=== PATIENT | female | born 1955 | race Caucasian/White ===

== ENCOUNTER → 2019-11-21 12:40 | Outpatient (CLI) | payer MEDICARE, SELFPAY ==
--- NOTE | ~2019-11-21 | MM_ITS ---
EXAMINATION: MM screening betty BI w wilber HISTORY: Screening mammogram TECHNIQUE: Craniocaudal and mediolateral oblique 3-D tomosynthesis images were obtained and synthetic 2-D images were generated. CAD analysis was submitted and interpreted. COMPARISON: 09/18/2018, 08/22/2017, 07/07/2016 bilateral digital screening mammogram examinations BREAST PARENCHYMAL COMPOSITION: There are scattered areas of fibroglandular density. FINDINGS: There is no evidence of suspicious mass, calcification, or architectural distortion to sugg est malignancy in either breast. There has been no suspicious interval change. IMPRESSION: 1. No mammographic evidence of malignancy. 2. Recommend routine screening mammography in one year. 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
--- NOTE | ~2019-11-21 | DEXA_ITS ---
Bone Density Report Name: Anny Valladares Age: 64 Sex: Female Ethnicity: White Date of : 1955 Indication: osteopenia; height loss; inflammatory bowel disease; Referring Provider: ELENA ALEJANDRA Study: Bone densitometry was performed. Exam Date: November 21, 2019 Accession number: [id number] Bone Density: Region BMD T-score Z-score Classification AP Spine (L1-L4) 1.007 -0.4 1.4 Normal Femoral Neck (Left) 0.689 -1.4 0.1 Osteopenia Total Hip (Left) 0.707 -1.9 -0.7 Osteopenia Femoral Neck (Right) 0.672 -1.6 -0.1 Osteopenia Total Hip (Right) 0.694 -2.0 -0.8 Osteopenia Total Hip Mean 0.701 -2.0 -0.8 Osteopenia World Health Organization criteria for BMD impression classify patients as: Normal (T-score at or above -1.0), Osteopenia (T-score between -1.0 and -2.5), or Osteoporosis (T-score at or below -2.5). 10-year Fracture Risk(1): Major Osteoporotic Fracture 9.4% Hip Fracture 1.1% Reported Risk Factors: [place] (), Neck BMD=0.672, BMI=26.0 (1) FRAX(R) Version 3.08. Fracture probability calculated for an untreated patient. Fracture probability may be lower if the patient has received treatment. Previous Exams: Region Exam Age BMD T-score BMD Change BMD Change Date g/cm2 vs Baseline vs Previous AP Spine(L1-L4) 11/21/2019 64 1.007 -0.4 -0.004 0.037* 08/22/2017 62 0.970 -0.7 -0.041* 0.004 06/10/2015 60 0.966 -0.7 -0.045* -0.008 04/07/2013 57 0.974 -0.7 -0.037* 0.012 04/05/2011 55 0.961 -0.8 -0.050* -0.050* 10/26/2008 53 1.011 -0.3 Total Hip(Left) 11/21/2019 64 0.707 -1.9 -0.158* -0.021 08/22/2017 62 0.728 -1.8 -0.137* 0.004 06/10/2015 60 0.723 -1.8 -0.142* -0.011 04/07/2013 57 0.735 -1.7 -0.130* -0.040* 04/05/2011 55 0.775 -1.4 -0.090* -0.090* 10/26/2008 53 0.865 -0.6 Total Hip(Right) 11/21/2019 64 0.694 -2.0 -0.110* -0.005 08/22/2017 62 0.699 -2.0 -0.104* -0.004 06/10/2015 60 0.703 -2.0 -0.101* -0.025 04/07/2013 57 0.728 -1.8 -0.075* -0.006 04/05/2011 55 0.735 -1.7 -0.069* -0.069* 10/26/2008 53 0.803 -1.1 *Denotes significance at 95% confidence level, LSC for AP Spine = 0.022 g/cm2, LSC for Total Hip = 0.027 g/cm2 Clinical Information Provided by Patient:
== END ==
PROVIDERS: PCP Internal Medicine; Visit Provider Obstetrics & Gynecology Gynecology
DX: Z12.31 Encounter for screening mammogram for malignant neoplasm of breast (principal); Z78.0 Asymptomatic menopausal state; M85.852 Other specified disorders of bone density and structure, left thigh; M85.851 Other specified disorders of bone density and structure, right thigh
CPT/HCPCS: 77063; 77067; 77080

== ENCOUNTER 2020-08-19 13:15 | Outpatient (CLI) | payer MEDICARE, OTHER, SELFPAY ==
--- NOTE | ~2020-08-19 | XR_ITS ---
XR chest 2V DATE: 08/19/2020 13:40 INDICATION: Rotator cuff tear TECHNIQUE: PA and lateral views COMPARISON: 09/14/2016 two view chest FINDINGS: Normal heart size. No hilar or mediastinal enlargement. No pulmonary infiltrate or consol idation, pulmonary vascular congestion or pleural effusion or pneumothorax. Surgical clips overlying upper abdomen, likely secondary to cholecystectomy. IMPRESSION: No active cardiopulmonary disease Reviewed, dictated and finalized at location A.
== END 2020-08-19 13:16 | disposition home or self-care (01) ==
LOC: ANHSURGERY 13:20
PROVIDERS: PCP Internal Medicine; Visit Provider Orthopaedic Surgery
DX: M75.102 Unspecified rotator cuff tear or rupture of left shoulder, not specified as traumatic (principal)
CPT/HCPCS: 71046; 87070

== ENCOUNTER 2020-08-25 01:29 | Outpatient (CLI) | payer MEDICARE, OTHER, SELFPAY ==
[2020-08-26 03:00] LABS: SARS-CoV-2 RNA PCR Negative
== END 2020-08-25 01:30 | disposition home or self-care (01) ==
LOC: ANHCOVIDDT 01:29
PROVIDERS: PCP Internal Medicine; Visit Provider Orthopaedic Surgery
DX: Z01.812 Encounter for preprocedural laboratory examination (principal); Z11.59 Encounter for screening for other viral diseases
CPT/HCPCS: 87635; C9803; U0003

== ENCOUNTER 2020-08-27 02:43 | Day surgery (SDC) | payer MEDICARE, OTHER, SELFPAY ==
[2020-08-18 15:50] VITALS: BMI 26.4
--- NOTE | 2020-08-26 12:20 | PM.IMHP ---
H&P: HPI History of Present Illness Date/Time: 08/26/20 12:20 Chief complaint: Left Shoulder Rotator Cuff Tear Narrative: Anny Valladares is a [address] Hardy who presents today for arthroscopy of the left shoulder with open rotator cuff repair possible tissue mend patch. She has been having pain in her shoulder for several years however in November of this year she fell onto the left shoulder since that time she has been having rather significant pain in the shoulder. She is initially seen May 22 of this year, after initial evaluation it was felt the patient most likely had a chronic rotator cuff tear. She went to formal physical therapy, at that point she did not wish to try any surgical intervention on the shoulder. Unfortunately therapy did not improve her pain symptoms. It did help somewhat with her range of motion and strength but she continues have significant pain on a daily basis. She was sent for MRI scan which did show a full-thickness rotator cuff tear involving the entire width of the supraspinatus and upper infraspinatus tendon. She continues have significant symptoms in the shoulder and has reached a point where she would rather proceed with surgery rather continue nonsurgical treatment. Review of Systems Review of Systems: All systems reviewed & are unremarkable except as noted in HPI and below PMFSH Social History Social History Smoking status: Never smoker Second hand tobacco smoke exposure: No Alcohol intake: current Drinks per week: 1 Substance use: never Spiritual care concerns: No Meds Home Medications and Allergies Home Medications Medication Instructions Recorded Confirmed Type aspirin 325 mg PO DAILY 08/18/20 08/18/20 History aspirin [Aspirin Low Dose] 81 mg PO DAILY 08/18/20 08/18/20 History cyanocobalamin (vitamin B-12) 100 mcg IM DAILY 08/18/20 08/18/20 History [Cyanacobalamin] diltiazem HCl 120 mg PO QAM 08/18/20 08/18/20 History ergocalciferol (vitamin D2) 50,000 unit PO DAILY 08/18/20 08/18/20 History [Vitamin D2] estradiol [Estrace] 0.5 mg PO DAILY 08/18/20 08/18/20 History fexofenadine [Myra] 180 mg PO DAILY 08/18/20 08/18/20 History fluticasone propionate [Flonase 2 spray INTRANASAL DAILY PRN 08/18/20 08/18/20 History Allergy Relief] glucosam-chondr msm6-manganese 1 cap PO DAILY 08/18/20 08/18/20 History lisinopril 10 mg PO QAM 08/18/20 08/18/20 History mesalamine [Lialda] 2.4 g PO DAILY 08/18/20 08/18/20 History propafenone 225 mg PO BID 08/18/20 08/18/20 History Allergies Allergy/AdvReac Type Severity Reaction Status Date / Time codeine Allergy Unknown Nausea and Verified 08/18/20 15:17 Vomiting Sulfa (Sulfonamide Allergy Unknown Rash Verified 08/18/20 15:17 Antibiotics) Exam Narrative: Exam Narrative: 65-year-old female very alert pleasant in no distress. Her left shoulder elevates to 180, externally rotates to 60, internally rotates to T8. She has tenderness over the biceps tendon at the bicipital groove. Negative speed's maneuver. She has moderate weakness with thumbs down abduction testing and moderate weakness with external rotation on the left shoulder. She has no tenderness over the AC joint mild to moderate tenderness over the anterior supraspinatus tendon insertion. 2+ radial pulse. She complains of no numbness or tingling in the right upper extremity. Resp: Auscultation: clear to auscultation bilaterally Cardio: Rate: regular rate Rhythm: regular rhythm Assessment and Plan Additional Plan Patient has a full-thickness rotator cuff tear left shoulder which is moderate to large in size. There is evidence that this is a chronic tear which may have some subacute component from her fall in November. She has not improved from nonsurgical treatment. She is fairly miserable with pain in the shoulder like to proceed with repair. Surgical procedures well as the
[2020-08-27] VITALS (8 sets, daily range): BP systolic 124–148; BP diastolic 75–85; PULSE 74–87; RESP 14–20; TEMP 36.1–36.7; O2SAT 97–100
--- NOTE | ~2020-08-27 | XR_ITS ---
EXAMINATION: XR shoulder LT min 2V DATE: 08/27/2020 17:57 INDICATION: Left rotator cuff tear. Postop. TECHNIQUE: 2 views of the left shoulder were obtained. COMPARISON: None. FINDINGS: Bone alignment is normal. No fracture. There is a benign bone island in left humeral head. There is sclerosis at greater tuberosity correlating with the surgical history of bone graft placemen t. There is mild osteoarthritis of glenohumeral joint. Acromioclavicular joint is normal. IMPRESSION: 1. Mild left glenohumeral joint osteoarthritis. Reviewed, dictated and finalized at location A. TRICIAN OUTSIDE
--- NOTE | 2020-08-27 08:21 | WPDANESEPP ---
Anes - Eval Pre Procedure Procedure: Operation Date: 08/27/20 12:30 Proposed Procedures p Left Shoulder Arthroscopy, Mini Open Rotator Cuff Repair, Possible Arthrex Tissue Augmentation Patch, Proceed As Indicated - Ananth Gary MD Date/Time: 08/27/20 08:21 Pre Op Diagnosis: Left Shoulder Rotator Cuff Tear Patient Data Age: 65 Gender: F Height: 5 ft 3.2 in Weight: 68.18 kg Allergies Allergy/AdvReac Type Severity Reaction Status Date / Time codeine Allergy Unknown Nausea and Verified 08/18/20 15:17 Vomiting Sulfa (Sulfonamide Allergy Unknown Rash Verified 08/18/20 15:17 Antibiotics) Home Medications Medication Instructions Recorded Confirmed Type aspirin 325 mg PO DAILY 08/18/20 08/18/20 History aspirin [Aspirin Low Dose] 81 mg PO DAILY 08/18/20 08/18/20 History cyanocobalamin (vitamin B-12) 100 mcg IM DAILY 08/18/20 08/18/20 History [Cyanacobalamin] diltiazem HCl 120 mg PO QAM 08/18/20 08/18/20 History ergocalciferol (vitamin D2) 50,000 unit PO DAILY 08/18/20 08/18/20 History [Vitamin D2] estradiol [Estrace] 0.5 mg PO DAILY 08/18/20 08/18/20 History fexofenadine [Myra] 180 mg PO DAILY 08/18/20 08/18/20 History fluticasone propionate [Flonase 2 spray INTRANASAL DAILY PRN 08/18/20 08/18/20 History Allergy Relief] glucosam-chondr msm6-manganese 1 cap PO DAILY 08/18/20 08/18/20 History lisinopril 10 mg PO QAM 08/18/20 08/18/20 History mesalamine [Lialda] 2.4 g PO DAILY 08/18/20 08/18/20 History propafenone 225 mg PO BID 08/18/20 08/18/20 History Patient hx anesthesia problems: none Family hx anesthesia problems: none PMFSH Past Medical History Medical History Colitis H/O: HTN (hypertension) Osteoarthritis Paroxysmal A-fib Surgical History Surgical History (Updated 08/27/20 @ 08:23 by Romaine Hansen CRNA) S/P total knee arthroplasty bilateral Social History Social History Smoking status: Never smoker Second hand tobacco smoke exposure: No Alcohol intake: current Drinks per week: 1 Substance use: never Living arrangements: with family Spiritual care concerns: No Exam Day of Procedure 08/27/20 08:21
--- NOTE | 2020-08-27 08:44 | WPDANESEPPF ---
Anes - Initial Pre Proc Eval Procedure: Operation Date: 08/27/20 12:30 Proposed Procedures p Left Shoulder Arthroscopy, Mini Open Rotator Cuff Repair, Possible Arthrex Tissue Augmentation Patch, Proceed As Indicated - Ananth Gary MD Date/Time: 08/27/20 08:44 Surgeon: Ananth Gary MD Pre Op Diagnosis: Left Shoulder Rotator Cuff Tear Patient Data Age: 65 Gender: F Height: 1.61 m Weight: 68.18 kg Allergies Allergy/AdvReac Type Severity Reaction Status Date / Time codeine Allergy Unknown Nausea and Verified 08/18/20 15:17 Vomiting Sulfa (Sulfonamide Allergy Unknown Rash Verified 08/18/20 15:17 Antibiotics) Home Medications Medication Instructions Recorded Confirmed Type aspirin 325 mg PO DAILY 08/18/20 08/18/20 History aspirin [Aspirin Low Dose] 81 mg PO DAILY 08/18/20 08/18/20 History cyanocobalamin (vitamin B-12) 100 mcg IM DAILY 08/18/20 08/18/20 History [Cyanacobalamin] diltiazem HCl 120 mg PO QAM 08/18/20 08/18/20 History ergocalciferol (vitamin D2) 50,000 unit PO DAILY 08/18/20 08/18/20 History [Vitamin D2] estradiol [Estrace] 0.5 mg PO DAILY 08/18/20 08/18/20 History fexofenadine [Myra] 180 mg PO DAILY 08/18/20 08/18/20 History fluticasone propionate [Flonase 2 spray INTRANASAL DAILY PRN 08/18/20 08/18/20 History Allergy Relief] glucosam-chondr msm6-manganese 1 cap PO DAILY 08/18/20 08/18/20 History lisinopril 10 mg PO QAM 08/18/20 08/18/20 History mesalamine [Lialda] 2.4 g PO DAILY 08/18/20 08/18/20 History propafenone 225 mg PO BID 08/18/20 08/18/20 History Patient hx anesthesia problems: none Family hx anesthesia problems: none PMFSH Past Medical History Medical History (Updated 08/27/20 @ 08:45 by Ricardo Krueger MD) Colitis H/O: HTN (hypertension) Osteoarthritis Overweight (BMI 25.0-29.9) Paroxysmal A-fib Surgical History Surgical History (Updated 08/27/20 @ 08:23 by Romaine Hansen CRNA) S/P total knee arthroplasty bilateral Social History Social History Smoking status: Never smoker Second hand tobacco smoke exposure: No Alcohol intake: current Drinks per week: 1 Substance use: never Living arrangements: with family Spiritual care concerns: No Anes - Eval Final PreProcedure Day of Procedure 08/27/20 08:44 Informed Consent: The patient's anesthetic plan and its attendant risks and benefits were discussed with the patient/family/POA. Questions were solicited and answers provided to the satisfaction of the patient/family/POA.
--- NOTE | 2020-08-27 08:45 | WPDANESEFPP ---
Anes - Eval Final PreProcedure Day of Procedure 08/27/20 08:45 Patient weight: overweight Heart: regular rate and rhythm Lungs: clear to auscultation and normal air movement Airway: Mallampati scale class II Neurological: alert and oriented Last oral intake: >/= 8 hours ASA classification: III Emergent: no Anesthetic plan: proceed Anesthesia type and monitoring: general ETT Informed Consent: The patient's anesthetic plan and its attendant risks and benefits were discussed with the patient/family/POA. Questions were solicited and answers provided to the satisfaction of the patient/family/POA.
[2020-08-27] MEDS: LACTATED RINGERS 1,000 ML 30 ML IV CONT ×2 (11:15→17:20)
[2020-08-27] MEDS: ACETAMINOPHEN 500 MG TABLET 1000 MG PO (11:26)
[2020-08-27] MEDS: KETOROLAC 15 MG/ML VIAL (*BKC) IV PUSH (11:26)
--- NOTE | 2020-08-27 11:31 | WPDANESPNB ---
Anes - Peripheral Nerve Block Date/Time: 08/27/20 11:31 I have discussed with the patient/family/POA the placement of a peripheral nerve block for post-operative pain management, including associated risks, benefits, complications, and side effects. Alternative methods of post-operative analgesia were detailed. Questions were solicited and answers provided to the satisfaction of the patient/family/POA. Time-Out: A pre-procedural Time-Out was completed immediately before starting the procedure and confirmed: Patient Identification, Site, Procedure, Patient Position and the Availability of Requisite Equipment. Clinical Indications: Acute post-operative pain management requested by the operative surgeon. Nerve Block Insertion Note Anes-nerve block: supraclavicular left Patient position: supine Skin prep: chlorhexidine Needle: 22 gauge, stimulating, insulated echogenic needle. Needle length: 80 mm Technique: ultrasound (in plane) Injectate: bupivacaine 0.5% with epi 5 mcg/ml (20cc) Observations: tolerated well Complications: none Procedure start time:: 1325 Procedure end time:: 1330
--- NOTE | 2020-08-27 13:18 | WPDHPUPDATE1 ---
History and Physical Update Update Date/Time: 08/27/20 13:18 History and Physical has been reviewed, including an updated exam of the patient. There are NO changes in the patient's condition. Risks, benefits, and alternatives have been discussed and questions answered. Patient agrees to proceed with procedure.
[2020-08-27] MEDS: ceFAZolin 2 GM/D5W 50 ML 2 GM/50 ML BAG IVPB (13:37)
[2020-08-27] MEDS: ceFAZolin SODIUM 1 GM VIAL IRRIGATION (14:41)
[2020-08-27] MEDS: ceFAZolin SODIUM 1 GM VIAL IV PUSH (16:47)
--- NOTE | 2020-08-27 17:27 | PM.DS ---
DS: Admitting Diagnosis Admitting Diagnosis Admitting Diagnosis: Left Shoulder Rotator Cuff Tear DS: Summary Time Spent with Patient Time attestation: Total time spent providing and/or coordinating discharge services: Discharge diagnosis is left rotator cuff tear, status post rotator cuff repair biceps tenodesis allograft bone grafting of large greater tuberosity bone cyst. Rev:06/04 [facility] [address] [place] [id number] DISCHARGE INSTRUCTIONS/ DR. KENDRICK ROTATOR CUFF REPAIR *The following instructions are in accordance with your doctor?s orders and should be followed closely to insure optimal healing and recovery: 1. Continue to use the shoulder immobilizer as you have in the hospital after your appointment with the doctor. 2. Remove dressings in 48 hours and apply light dressing. 3. It is normal to experience some pain or discomfort for several weeks. Ice packs can help to reduce discomfort as well as swelling. Take the medication the doctor prescribed. 4. A small pillow or folded blanket behind the elbow while in bed will prevent the shoulder from falling back and straining the operative joint. 5. Your normal diet may be resumed slowly when you feel you can tolerate it 6. Remember to avoid leaning or lying on the operative arm and no lifting of the operative arm until further instructions for your doctor. 7. Continue to do any exercises given to you by your doctor and/or physical therapist. This is an important part of the healing process and will hasten complete recovery. 8. After your surgery, contact your doctor immediately if you experience: ? A fever over 101 degrees F (38.3 degrees C) ? Numbness or tingling of the arm ? Increased intensity of pain ? Signs of an infection including increased redness or swelling, drainage or foul odor from the incision. 9. Additional specific instructions will be given to you at discharge. Please refer to your discharge instruction sheet. Rev: 05/10 Discharge Plan Discharge Patient Disposition: Home, Self-Care Discharge Instructions: Take 1 pain pill every 4 hours starting when you get home. Try to take it was some fluid. Taken on an empty stomach it will cause severe nausea and vomiting sometimes. Take a pain pill even if you do not have pain every 4 hours because when the block wears off between 12 and 18 hours from the time of surgery, the pain may be severe and difficult to control if you have not been taking the pain pills all along. After the block wears off the have increased pain and U control the pain then you can consider weaning off the pain pills when you feel comfortable enough. He may take 1 or 2 pain pills and most people find a half to take 2 when the block 1st wears off up to every 4 hours as needed for pain. Do not use your left hand as any use will cause movement in the muscles of her shoulder and pull on the rotator cuff that has just been repaired which will cause the tendon to pull away from the bone to which it has been secured. Is okay to move the wrist and fingers to keep them from getting stiff. Physical therapy will teach 2 limp pendulum exercises that we will start next week and these are to be done very gently and carefully. Wear the immobilizer at all times except for showers you can allow the arm to hang limp at the side and water may run over the incisions because they are closed with glue. After the shower replace dressings with a light gauze dressing the keep your closed from rubbing on the incision. Best not to use a bra strap in that area until the wound is
--- NOTE | 2020-08-27 17:38 | PM.PROC ---
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 She received an interscalene block preoperatively in the holding area as she received weight based vancomycin and 2 g of Ancef preoperatively. She was placed in the beach chair position the head secured in neutral alignment and the left shoulder prepped draped usual fashion. Posterior portal was placed. There was central glenoid chondromalacia but otherwise the articular cartilage looked normal for age on the glenoid and the humeral head. The superior labrum was be hypermobile with a sublabral foramen noted. The long head of the biceps had attenuation where it entered the bicipital groove and we could see that it was excoriated in the upper bicipital groove with bulbous enlargement medial to the bicipital groove. There was maceration of the articular side upper subscapularis with some longitudinal split tearing that was fairly minor and there was no detachment from the lesser tuberosity. There was a fairly large tear involving infraspinatus and supraspinatus tendons full-thickness. Arthroscope was placed in the subacromial space. Debridement of the CA ligament from the anterior acromion was performed and a minimal decompression with the 3.5 full radius shaver performed. The remaining skin was covered with Ioban outer gloves changed. A 2 in incision was made starting from the superior aspect the anterior acromion extending anterolaterally and the incision was brought down to the tendinous raphe between the anterior middle heads of the deltoid and a 4 cm split the deltoid was made. The rotator cuff tear was identified. The anterior cable of the supraspinatus was torn root tear went right up to the rotator cuff interval attachment at the upper bicipital groove. We could see the bulbous changes of the biceps and looking at the upper bicipital groove we could see that it was stenotic and the biceps had been janie rubbing on the exposed lateral bicipital ridge causing the excoriation. It was clear that tenodesis of the long of the biceps would be advisable. Repair of the supraspinatus was not going to address this problem. We incised the retinaculum covering the bicipital groove tagged the long head of the biceps at the location we 1 to exit the biceps tenodesis slot and with the curved Parkinson we released the long head from the superior labrum under direct vision as her tear was large enough to see this easily. We did place the arthroscope in the shoulder and did a minimal debridement of the stump at the superior labrum. A 5 mm bur was used to make a hole in the bicipital groove upper aspect about 8 mm in diameter and then a 2 mm bur was used to make a 2-1/2 to 3 mm wide slot extending distally another 8 or 9 mm. The biceps stump had been rolled up into a tight ball accomplished using a 2. FiberWire and the size of this Ball portion was 8 mm and the thinner dimension of the biceps was 2.5 mm. We pushed this into the circular opening and the biceps tendon nestled into the slot ball portion behind the slot. Secure fixation was thus achieved of the biceps tendon into the bicipital groove. The retinaculum covering the bicipital groove was repaired with interrupted 0 Ethibond sutures. We then turned to the rotator cuff tear. A 15 blade scalpel was used to scrape soft tissue from the greater tuberosity and we encountered a conical depression at the posterior aspect of t
== END 2020-08-27 19:30 | disposition home or self-care (01) ==
PROVIDERS: PCP Internal Medicine; Visit Provider Orthopaedic Surgery
PROC: (CPT 29805; principal; 2020-08-27 12:30)
DX: S46.012A Strain of muscle(s) and tendon(s) of the rotator cuff of left shoulder, initial encounter (principal); S46.112A Strain of muscle, fascia and tendon of long head of biceps, left arm, initial encounter; M85.412 Solitary bone cyst, left shoulder; W19.XXXA Unspecified fall, initial encounter; M94.212 Chondromalacia, left shoulder; G89.18 Other acute postprocedural pain; I48.0 Paroxysmal atrial fibrillation; I10 Essential (primary) hypertension
CPT/HCPCS: 23410; 23430; 64415; 73030; A4565; A9270; C1713; J0690; J1100; J1885; J2250; J2370; J2405; J2704; J2710; J3010; J3370; J7120

== ENCOUNTER → 2021-02-25 13:28 | Outpatient (CLI) | payer MEDICARE, OTHER, SELFPAY ==
--- NOTE | ~2021-02-25 | MM_ITS ---
EXAMINATION: MM screening betty BI w wilber HISTORY: Screening TECHNIQUE: Craniocaudal and mediolateral oblique 3-D tomosynthesis images were obtained and synthetic 2-D images were generated. CAD analysis was submitted and interpreted. COMPARISON: No prior mammogram is available for comparison at this institution. BREAST PARENCHYMAL COMPOSITION: The breasts are heterogeneously dense, which may obscure small masses . FINDINGS: There is no evidence of suspicious mass, calcification, or architectural distortion to sugg est malignancy in either breast. There has been no suspicious interval change. IMPRESSION: 1. No mammographic evidence of malignancy. 2. Recommend routine screening mammography in one year. BI-RADS Category 1: Negative Reviewed, dictated and finalized at location A.
== END ==
PROVIDERS: Visit Provider Obstetrics & Gynecology Gynecology
DX: Z12.31 Encounter for screening mammogram for malignant neoplasm of breast (principal)
CPT/HCPCS: 77063; 77067

== ENCOUNTER 2021-07-04 01:05 | Day surgery (SDC) | payer MEDICARE, OTHER, SELFPAY ==
[2021-06-22 13:37] VITALS: BMI 25.7
--- NOTE | 2021-07-04 07:45 | WPDANESEPPF ---
Anes - Initial Pre Proc Eval Procedure: Operation Date: 07/04/21 10:15 Proposed Procedures p Colonoscopy - Ko Brody MD Date/Time: 07/04/21 07:45 Surgeon: Ko Brody MD Pre Op Diagnosis: Ulcerative colitis Patient Data Age: 66 Gender: F Height: 1.63 m Weight: 68.1 kg Allergies Allergy/AdvReac Type Severity Reaction Status Date / Time Sulfa (Sulfonamide Allergy Unknown Rash Verified 07/04/21 09:50 Antibiotics) Home Medications Medication Instructions Recorded Confirmed Type cyanocobalamin (vitamin B-12) 100 mcg IM DAILY 08/18/20 06/22/21 History diltiazem HCl [Cardizem] 120 mg PO QAM 08/18/20 08/27/20 History ergocalciferol (vitamin D2) 50,000 unit PO DAILY 08/18/20 06/22/21 History estradiol [Estrace] 0.5 mg PO DAILY 08/18/20 06/22/21 History fexofenadine [Allergy Relief 180 mg PO DAILY 08/18/20 06/22/21 History (fexofenadine)] fluticasone propionate [Flonase 2 spray INTRANASAL DAILY PRN 08/18/20 06/22/21 History Allergy Relief] glucosam-chondr msm6-manganese 1 cap PO DAILY 08/18/20 06/22/21 History lisinopril 10 mg PO QAM 08/18/20 06/22/21 History mesalamine [Lialda] 2.4 g PO DAILY 08/18/20 06/22/21 History propafenone 225 mg PO BID 08/18/20 06/22/21 History oxycodone-acetaminophen [Percocet] 1 tablet PO Q4H PRN #30 tablet 08/27/20 Rx polyethylene glycol 3350 [Miralax] 17 gm PO DAILY #30 each 08/27/20 Rx sennosides-docusate sodium [Senna 2 tab-cap PO BID PRN #120 cap 08/27/20 Rx Plus] sodium,potassium,mag sulfates 17.5 See Rx Instructions PO .COMPLEX 06/08/21 Rx gram-3.13 gram-1.6 gram oral soln #354 ml Patient hx anesthesia problems: none Family hx anesthesia problems: none PMFSH Past Medical History Medical History (Updated 07/04/21 @ 07:46 by Ricardo Krueger MD) Colitis H/O: HTN (hypertension) Osteoarthritis Overweight (BMI 25.0-29.9) Paroxysmal A-fib Ulcerative colitis Surgical History Surgical History (Updated 08/27/20 @ 08:23 by Romaine Hansen CRNA) S/P total knee arthroplasty bilateral Social History Social History Smoking status: Never smoker Second hand tobacco smoke exposure: No Alcohol intake: current Drinks per week: 1 Substance use: never Substance use type: does not use Gender identity (if verbalized by the patient): Female Spiritual care concerns: No Anes - Eval Final PreProcedure Day of Procedure 07/04/21 07:45 Patient weight: normal Heart: regular rate and rhythm Lungs: clear to auscultation and normal air movement Airway: Mallampati scale class II Neurological: alert and oriented Last oral intake: >/= 8 hours ASA classification: III Emergent: no Anesthetic plan: proceed Anesthesia type and monitoring: general GIVS Informed Consent: The patient's anesthetic plan and its attendant risks and benefits were discussed with the patient/family/POA. Questions were solicited and answers provided to the satisfaction of the patient/family/POA.
[2021-07-04 09:53] VITALS: BP 147/96; PULSE 74; RESP 18; TEMP 36.4; O2SAT 100; BMI 25.4
[2021-07-04] MEDS: LACTATED RINGERS 1,000 ML 150 ML IV CONT (10:13)
--- NOTE | 2021-07-04 10:21 | WPDGICN ---
Assessment and Plan Assessment and plan (1) Ulcerative colitis: Code(s): K51.90 - Ulcerative colitis, unspecified, without complications Status: Acute Assessment and Plan: Patient with a longstanding history of left-sided proctosigmoiditis. Currently felt to be in remission. Currently taking Lialda 1.2g p.o. daily. Plan is for surveillance colonoscopy now and every 3 years in the future. Further recommendations will be given after endoscopy. GI Consult Note Consult date/time: 07/04/21 10:21 HPI: Anny Valladares is a 66 year old female Presents for evaluation of chronic ulcerative colitis. Patient has a longstanding history of left-sided proctosigmoiditis. She has been in remission for many years. Most recent colonoscopy 2018 was performed in [place]. Patient at that time was felt to be in remission. Currently she takes Lialda 1.2g p.o. daily. She denies any recent change in bowel habits. She has had no bleeding. Family history is noncontributory. Patient has a history of atrial fibrillation for which she underwent ablation at [facility]. She currently is on no medications for this is being observed. Review of Systems Review of Systems: All systems reviewed & are unremarkable except as noted in HPI and below PMFSH Past Medical History Medical History (Updated 07/04/21 @ 07:46 by Ricardo Krueger MD) Colitis H/O: HTN (hypertension) Osteoarthritis Overweight (BMI 25.0-29.9) Paroxysmal A-fib Ulcerative colitis Surgical History Surgical History (Updated 08/27/20 @ 08:23 by Romaine Hansen CRNA) S/P total knee arthroplasty bilateral Social History Social History Smoking status: Never smoker Second hand tobacco smoke exposure: No Alcohol intake: current Drinks per week: 1 Substance use: never Substance use type: does not use Gender identity (if verbalized by the patient): Female Spiritual care concerns: No Meds Home Medications and Allergies Home Medications Medication Instructions Recorded Confirmed Type cyanocobalamin (vitamin B-12) 100 mcg IM DAILY 08/18/20 06/22/21 History diltiazem HCl [Cardizem] 120 mg PO QAM 08/18/20 08/27/20 History ergocalciferol (vitamin D2) 50,000 unit PO DAILY 08/18/20 06/22/21 History estradiol [Estrace] 0.5 mg PO DAILY 08/18/20 06/22/21 History fexofenadine [Allergy Relief 180 mg PO DAILY 08/18/20 06/22/21 History (fexofenadine)] fluticasone propionate [Flonase 2 spray INTRANASAL DAILY PRN 08/18/20 06/22/21 History Allergy Relief] glucosam-chondr msm6-manganese 1 cap PO DAILY 08/18/20 06/22/21 History lisinopril 10 mg PO QAM 08/18/20 06/22/21 History mesalamine [Lialda] 2.4 g PO DAILY 08/18/20 06/22/21 History propafenone 225 mg PO BID 08/18/20 06/22/21 History oxycodone-acetaminophen [Percocet] 1 tablet PO Q4H PRN #30 tablet 08/27/20 Rx polyethylene glycol 3350 [Miralax] 17 gm PO DAILY #30 each 08/27/20 Rx sennosides-docusate sodium [Senna 2 tab-cap PO BID PRN #120 cap 08/27/20 Rx Plus] sodium,potassium,mag sulfates 17.5 See Rx Instructions PO .COMPLEX 06/08/21 Rx gram-3.13 gram-1.6 gram oral soln #354 ml Allergies Allergy/AdvReac Type Severity Reaction Status Date / Time Sulfa (Sulfonamide Allergy Unknown Rash Verified 07/04/21 09:50 Antibiotics) Vital Signs Vital Signs - 24 hr 07/04/21 09:53 Temperature 97.5 F L Pulse Rate 74 Respiratory Rate 18 Blood Pressure 147/96 H Pulse Oximetry 100 Exam Narrative: Physical exam reveals patient to be alert. Vital signs stable. HEENT exam is unremarkable. Patient is anicteric. Lungs are clear to auscultation and percussion. Heart is without murmur or extra sounds. Abdominal exam bowel sounds are present soft nontender with no organomegaly. Digital external rectal exam normal.
[2021-07-04] MEDS: SIMETHICONE ORAL SUSPENSION 20 MG/0.3 ML 30 ML BOTTLE 0.6 ML IRRIGATION (10:41)
[2021-07-04 10:59] VITALS: BP 117/72; PULSE 81; RESP 22; O2SAT 99
[2021-07-04 11:09] VITALS: BP 128/75; PULSE 83; RESP 19; O2SAT 100
[2021-07-04 11:19] VITALS: BP 128/84; PULSE 69; RESP 20; O2SAT 99
== END 2021-07-04 11:35 | disposition home or self-care (01) ==
PROVIDERS: PCP Internal Medicine; Visit Provider Internal Medicine Gastroenterology
PROC: 0DJD8ZZ Inspection of Lower Intestinal Tract, Via Natural or Artificial Opening Endoscopic (ICD-10-PCS; CPT 45378; principal; 2021-07-04 10:15)
DX: K51.30 Ulcerative (chronic) rectosigmoiditis without complications (principal); I10 Essential (primary) hypertension; I48.0 Paroxysmal atrial fibrillation; Z96.653 Presence of artificial knee joint, bilateral; E66.3 Overweight; K64.8 Other hemorrhoids
CPT/HCPCS: 45380; 88305; J2704; J7120

== ENCOUNTER → 2022-05-03 13:17 | Outpatient (CLI) | payer MEDICARE, OTHER, SELFPAY ==
--- NOTE | ~2022-05-03 | MM_ITS ---
EXAMINATION: MM screening [facility] BI w wilber HISTORY: Screening mammogram TECHNIQUE: Craniocaudal and mediolateral oblique 3-D tomosynthesis images were obtained and synthetic 2-D images were generated. CAD analysis was submitted and interpreted. COMPARISON: 02/25/2021, 11/21/2019 BREAST PARENCHYMAL COMPOSITION: The breasts are heterogeneously dense, which may obscure small masses . FINDINGS: There is no suspicious mass, calcification, or architectural distortion to suggest malignan cy in either breast. There has been no suspicious interval change. IMPRESSION: 1. No mammographic evidence of malignancy. 2. Recommend routine screening mammography in one year. BI-RADS Category 1: Negative Reviewed, dictated and finalized at location A.
== END ==
PROVIDERS: PCP Internal Medicine; Visit Provider Obstetrics & Gynecology Gynecology
DX: Z12.31 Encounter for screening mammogram for malignant neoplasm of breast (principal)
CPT/HCPCS: 77063; 77067

== ENCOUNTER → 2022-06-09 12:19 | Outpatient (CLI) | payer MEDICARE, OTHER, SELFPAY ==
--- NOTE | ~2022-06-09 | DEXA_ITS ---
Bone Density Report Name: MASON QUINTEROS Age: 67 Sex: Female Ethnicity: White Date of : 1955 Indication: osteopenia; monitoring treatment; height loss; inflammatory bowel disease; postmenopausal Referring Provider: ELENA ALEJANDRA Study: Bone densitometry was performed. Exam Date: June 09, 2022 Accession number: [id number] Bone Density: Region BMD T-score Z-score Classification AP Spine (L1-L4) 0.956 -0.8 1.1 Normal Femoral Neck (Left) 0.666 -1.6 0.0 Osteopenia Total Hip (Left) 0.694 -2.0 -0.6 Osteopenia Femoral Neck (Right) 0.594 -2.3 -0.6 Osteopenia Total Hip (Right) 0.665 -2.3 -0.9 Osteopenia Total Hip Mean 0.680 -2.2 -0.8 Osteopenia World Health Organization criteria for BMD impression classify patients as: Normal (T-score at or above -1.0), Osteopenia (T-score between -1.0 and -2.5), or Osteoporosis (T-score at or below -2.5). 10-year Fracture Risk: FRAX not reported because: Treated for osteoporosis Previous Exams: Region Exam Age BMD T-score BMD Change BMD Change Date g/cm2 vs Baseline vs Previous AP Spine(L1-L4) 06/09/2022 67 0.956 -0.8 -0.055* -0.051* 11/21/2019 64 1.007 -0.4 -0.004 0.037* 08/22/2017 62 0.970 -0.7 -0.041* 0.004 06/10/2015 60 0.966 -0.7 -0.045* -0.008 04/07/2013 57 0.974 -0.7 -0.037* 0.012 04/05/2011 55 0.961 -0.8 -0.050* -0.050* 10/26/2008 53 1.011 -0.3 Total Hip(Left) 06/09/2022 67 0.694 -2.0 -0.170* -0.012 11/21/2019 64 0.707 -1.9 -0.158* -0.021 08/22/2017 62 0.728 -1.8 -0.137* 0.004 06/10/2015 60 0.723 -1.8 -0.142* -0.011 04/07/2013 57 0.735 -1.7 -0.130* -0.040* 04/05/2011 55 0.775 -1.4 -0.090* -0.090* 10/26/2008 53 0.865 -0.6 Total Hip(Right) 06/09/2022 67 0.665 -2.3 -0.138* -0.029* 11/21/2019 64 0.694 -2.0 -0.110* -0.005 08/22/2017 62 0.699 -2.0 -0.104* -0.004 06/10/2015 60 0.703 -2.0 -0.101* -0.025 04/07/2013 57 0.728 -1.8 -0.075* -0.006 04/05/2011 55 0.735 -1.7 -0.069* -0.069* 10/26/2008 53 0.803 -1.1 *Denotes significance at 95% confidence level, LSC for AP Spine = 0.022 g/cm2, LSC for Total Hip = 0.027 g/cm2 Clinical Information Provided by Patient: Pancho tate
== END ==
PROVIDERS: PCP Internal Medicine; Visit Provider Obstetrics & Gynecology Gynecology
DX: Z78.0 Asymptomatic menopausal state (principal); M85.89 Other specified disorders of bone density and structure, multiple sites
CPT/HCPCS: 77080

== ENCOUNTER → 2022-12-02 11:26 | Outpatient (CLI) | payer MEDICARE, OTHER, SELFPAY ==
--- NOTE | ~2022-12-02 | MR_ITS ---
MRI of the lumbar spine Clinical History: Radiculopathy, back pain Technique: Axial T2-weighted images, and sagittal T1-weighted, T2-weighted, and T2 fat-sat images wer e acquired. Findings: There is an acute compression fracture at the inferior endplate region of L1, with minimal loss of height. 5 mm anterolisthesis of L4 over L5 present. At L1-L2, there is no disc bulge or herniation. There is minimal facet joint hypertrophy. No spinal c anal stenosis or neural foraminal narrowing. At L2-L3, there is mild disc bulge and minimal facet arthropathy. No spinal canal stenosis or neural foraminal narrowing. At L3-L4, there is mild disc bulge with facet arthropathy. No spinal canal stenosis. There is mild ri ght neural foraminal narrowing. Left neural foramen preserved. At L4-L5, there is disc bulge and facet arthropathy. No spinal canal stenosis. There is moderate left neural foraminal narrowing and mild right neural foraminal narrowing. At L5-S1, there is minimal disc bulge and mild facet arthropathy. No spinal canal stenosis. There is severe left neural foraminal narrowing and mild right neural foraminal narrowing. Paravertebral soft tissues are unremarkable. Impression: Acute compression fracture of L1 with minimal loss of height. Severe left neural foraminal narrowing at L5-S1. Additional areas of mild to moderate neural foraminal narrowing at L3-L4, L4-L5, and L5-S1, as detail ed above. 5 mm anterolisthesis of L4 over L5. Reviewed, dictated and finalized at [facility]. TER USHER Impression: Acute compression fracture of L1 with minimal loss of height. Severe left neural foraminal narrowing at L5-S1. Additional areas of mild to moderate neural foraminal narrowing at L3-L4, L4-L5 , and L5-S1, as detailed above. 5 mm anterolisthesis of L4 over L5.
== END ==
PROVIDERS: PCP Internal Medicine; Visit Provider Nurse Practitioner Family
DX: M54.16 Radiculopathy, lumbar region (principal); M48.56XA Collapsed vertebra, not elsewhere classified, lumbar region, initial encounter for fracture; M48.07 Spinal stenosis, lumbosacral region; M43.16 Spondylolisthesis, lumbar region
CPT/HCPCS: 72148

== ENCOUNTER → 2022-12-22 11:56 | Outpatient (CLI) | payer MEDICARE, OTHER, SELFPAY ==
--- NOTE | ~2022-12-22 | CT_ITS ---
EXAMINATION: CT sinus wo con DATE: 12/22/2022 12:09 INDICATION: Chronic sinusitis TECHNIQUE: Computed tomography (CT) of the paranasal sinuses was performed without intravenous contra st. The dose-length product was 287.09 mGy-cm. Automated exposure control and iterative reconstructio n technique were employed. COMPARISON: No prior studies for comparison. FINDINGS: There is mucosal thickening of the maxillary and ethmoid sinuses. Mastoids are pneumatized. No air-fluid levels. No significant mucoperiosteal reaction. There are changes of bilateral ethmoide ctomy. No significant nasal septal deviation. IMPRESSION: 1. Mild sinus disease. Reviewed, dictated and finalized at location B. CE OFFICER IMPRESSION: 1. Mild sinus disease.
== END ==
PROVIDERS: PCP Internal Medicine; Visit Provider Internal Medicine
DX: J32.9 Chronic sinusitis, unspecified (principal)
CPT/HCPCS: 70486

== ENCOUNTER 2023-03-13 10:47 | Emergency (ER) | payer MEDICARE, OTHER, SELFPAY ==
--- NOTE | ~2023-03-13 | XR_ITS ---
XR shoulder RT min 2V 03/13/2023 13:18 Indication: Right shoulder pain after fall Procedure: 4 views right shoulder Comparison: No prior studies for comparison Findings: There is polyarticular osteoarthritis. Osteopenia. No acute fracture or traumatic malalignm ent. No focal soft tissue abnormality. No foreign bodies. Impression: 1: No acute fracture. Reviewed, dictated and finalized at location L. Impression: 1: No acute fracture.
[2023-03-13 10:56] VITALS: BP 154/88; PULSE 64; RESP 16; TEMP 36.6; O2SAT 100
[2023-03-13 12:42] VITALS: BP 156/96; PULSE 72; RESP 18; O2SAT 100
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
[2023-03-13] MEDS: ACETAMINOPHEN 500 MG TABLET 1000 MG PO (13:57)
[2023-03-13 14:11] VITALS: BP 186/91; PULSE 68; RESP 16; O2SAT 100
== END 2023-03-13 14:23 | disposition home or self-care (01) ==
PROVIDERS: Emergency Provider Physician Assistant; PCP Internal Medicine
DX: S49.91XA Unspecified injury of right shoulder and upper arm, initial encounter (principal); K51.90 Ulcerative colitis, unspecified, without complications; I48.0 Paroxysmal atrial fibrillation; I10 Essential (primary) hypertension; M19.90 Unspecified osteoarthritis, unspecified site; V18.0XXA Pedal cycle driver injured in noncollision transport accident in nontraffic accident, initial encounter; Y93.55 Activity, bike riding
CPT/HCPCS: 73030; 99283; A9270

== ENCOUNTER → 2023-08-17 11:14 | Outpatient (CLI) | payer MEDICARE, OTHER, SELFPAY ==
--- NOTE | ~2023-08-17 | MM_ITS ---
EXAMINATION: MM screening [facility] BI w wilber HISTORY: Screening mammogram TECHNIQUE: Craniocaudal and mediolateral oblique 3-D tomosynthesis images were obtained and synthetic 2-D images were generated. CAD analysis was submitted and interpreted. COMPARISON: 05/03/2022, 02/25/2021, 11/21/2019 bilateral screening mammogram examinations BREAST PARENCHYMAL COMPOSITION: The breasts are heterogeneously dense, which may obscure small masses . FINDINGS: There is no evidence of suspicious mass, calcification, or architectural distortion to sugg est malignancy in either breast. There has been no suspicious interval change. IMPRESSION: 1. No mammographic evidence of malignancy. 2. Recommend routine screening mammography in one year. BI-RADS Category 1: Negative Reviewed, dictated and finalized at location A.
== END ==
PROVIDERS: PCP Obstetrics & Gynecology Gynecology; Visit Provider Obstetrics & Gynecology Gynecology
DX: Z12.31 Encounter for screening mammogram for malignant neoplasm of breast (principal)
CPT/HCPCS: 77063; 77067

== ENCOUNTER 2024-02-29 15:35 | Outpatient (CLI) | payer MEDICARE, OTHER, SELFPAY ==
--- NOTE | ~2024-02-29 | XR_ITS ---
XR cervical spine 4-5V DATE: 02/29/2024 15:53 INDICATION: Neck pain TECHNIQUE: AP, open-mouth, lateral, swimmer's views COMPARISON: None FINDINGS: There is normal alignment of C1 and C2 and the odontoid process is intact. Mild to moderate loss of height at C4-5 interspace. Severe degenerative disc disease at C5-6 and C6-7 with associated 2 mm and 1 mm posterior subluxation at C5-6 and C6-7, respectively. Prominent uncovertebral joint spurring at C5-6 and C6-7. Elongated transverse processes at C7. No prevertebral soft tissue swelling. No fracture or dislocation or locked facet. IMPRESSION: Severe degenerative disease and associated mild retrolisthesis at C5-6 and C6-7 Mild to moderate degenerative disease at C4-5 Reviewed, dictated and finalized at location A. IMPRESSION: Severe degenerative disease and associated mild retrolisthesis at C 5-6 and C6-7 Mild to moderate degenerative disease at C4-5
== END 2024-02-29 15:36 ==
PROVIDERS: PCP Obstetrics & Gynecology Gynecology; Visit Provider Internal Medicine
DX: M43.12 Spondylolisthesis, cervical region (principal); M50.322 Other cervical disc degeneration at C5-C6 level; M50.323 Other cervical disc degeneration at C6-C7 level
CPT/HCPCS: 72050

== ENCOUNTER 2024-03-15 10:31 | Outpatient (CLI) | payer MEDICARE, OTHER, SELFPAY ==
--- NOTE | ~2024-03-15 | MR_ITS ---
EXAMINATION: MR cervical spine wo con DATE: 03/15/2024 11:19 INDICATION: Neck pain. TECHNIQUE: Magnetic resonance imaging (MRI) of the cervical spine was performed without intravenous c ontrast. Sequences included sagittal T2-weighted FSE, sagittal T2-weighted FS FSE, sagittal T1-weight ed FSE, axial MERGE, and axial T2-weighted FSE. COMPARISON: Cervical spine radiographs 02/29/24 FINDINGS: There is 5 degrees levocurvature of the cervicothoracic spine. There is 2 mm retrolisthesis of C5 on C6 and C6 and C7 and 2 mm anterolisthesis of C7 on T1. Vertebral body heights are normal. T here is mildly decreased disc height at C4-C5 and severely decreased disc height at C5-C6 and C6-C7. The spinal cord signal intensity is normal. The following disc levels are specifically discussed: C2-C3: The disc does not extend beyond the endplate margin. There is no uncovertebral joint osteoarth ritis. There is mild bilateral facet joint osteoarthritis. There is no neural foraminal stenosis. The re is no central canal stenosis. C3-C4: The disc does not extend beyond the endplate margin. There is mild bilateral uncovertebral philip nt osteoarthritis. There is mild bilateral facet joint osteoarthritis. There is mild right neural for aminal stenosis. There is mild central canal stenosis. C4-C5: The disc is bulging. There is moderate bilateral uncovertebral joint osteoarthritis. There is severe bilateral facet joint osteoarthritis. There is mild bilateral neural foraminal stenosis. There is mild central canal stenosis. C5-C6: The disc is bulging. There is severe bilateral uncovertebral joint osteoarthritis. There is mi ld bilateral facet joint osteoarthritis. There is moderate bilateral neural foraminal stenosis. There is moderate central canal stenosis with ventral and dorsal indentation of the spinal cord. C6-C7: The disc does not extend beyond the endplate margin. There is severe bilateral uncovertebral j oint osteoarthritis. There is severe bilateral facet joint osteoarthritis. There is mild lateral neur al foraminal stenosis. There is mild central canal stenosis. C7-T1: The disc does not extend beyond the endplate margin. There is mild left uncovertebral joint os teoarthritis. There is severe bilateral facet joint osteoarthritis. There is mild bilateral neural fo raminal stenosis. There is no central canal stenosis. IMPRESSION: 1. Severe cervical spondylosis. Reviewed, dictated and finalized at location A.
== END 2024-03-15 10:32 ==
LOC: MICIMG 10:31
PROVIDERS: PCP Internal Medicine; Visit Provider Internal Medicine
DX: M54.2 Cervicalgia (principal); M43.06 Spondylolysis, lumbar region
CPT/HCPCS: 72141

== ENCOUNTER 2024-09-16 14:30 | Outpatient (CLI) | payer MEDICARE, OTHER, SELFPAY ==
--- NOTE | ~2024-09-16 | MM_ITS ---
EXAMINATION: MM screening [facility] BI w wilber HISTORY: Screening TECHNIQUE: Craniocaudal and mediolateral oblique 3-D tomosynthesis images were obtained and synthetic 2-D images were generated. CAD analysis was submitted and interpreted. COMPARISON: Comparison to multiple prior studies sequentially, with oldest reviewed study dated 10/2016. BREAST PARENCHYMAL COMPOSITION: Not dense: There are scattered areas of fibroglandular density. FINDINGS: There is no evidence of suspicious mass, calcification, or architectural distortion to sugg est malignancy in either breast. There has been no suspicious interval change. IMPRESSION: 1. No mammographic evidence of malignancy. 2. Recommend routine screening mammography in one year. BI-RADS Category 1: Negative Reviewed, dictated and finalized at location B. LITIGATION ASSOCIATE
== END 2024-09-16 14:31 | disposition home or self-care (01) ==
LOC: ANHIMG 14:31
PROVIDERS: PCP Internal Medicine; Visit Provider Obstetrics & Gynecology Gynecology
DX: Z12.31 Encounter for screening mammogram for malignant neoplasm of breast (principal)
CPT/HCPCS: 77063; 77067

== ENCOUNTER 2024-10-03 10:41 | Outpatient (CLI) | payer MEDICARE, OTHER, SELFPAY ==
--- NOTE | ~2024-10-03 | MR_ITS ---
MRI of the right shoulder Technique: Axial proton-density fat-sat images, coronal proton density fat-sat and T2 fat-sat images, and sagittal T1-weighted and T2 fat-sat images were acquired. Clinical History: Pain Findings: There is moderate to advanced AC joint degenerative change of mild bony productive change, clinical were sent troy. Coracoclavicular, coracoacromial, and coracohumeral ligaments appear intac t. There is full-thickness, near complete tearing of the supraspinatus and infraspinatus tendons. A few of the anteriormost fibers of the supraspinatus tendon may remain intact. Fluid-filled gap measures 4 .3 x 3.6 cm in extent. Subscapularis tendon is intact with severe tendinosis. Tendon of long head of the biceps is intact. Possible minimal degenerative tearing of the superior labrum. Inferior glenohumeral ligament is intact. There are small glenohumeral joint effusion with fluid pass ing through the rotator cuff defect into the subacromial/subdeltoid bursa and subscapularis recess. T here is minimal degenerative change of the glenohumeral joint. There is probable mild fatty atrophy o f the infraspinatus muscle belly. No definite atrophy of the supraspinatus muscle belly. Impression: Full-thickness, near complete tearing of the supraspinatus and infraspinatus tendons, as detailed abo ve. Associated fatty atrophy of the infraspinatus muscle belly. Moderate to advanced AC joint degenerative change. Possible mild degenerative tearing of the superior labrum. Reviewed, dictated and finalized at location . O TECHNICIAN Impression: Full-thickness, near complete tearing of the supraspinatus and infraspinatus te ndons, as detailed above. Associated fatty atrophy of the infraspinatus muscle belly. Moderate to advanced AC joint degenerative change. Possible mild degenerative tearing of the superior labrum.
== END 2024-10-03 10:42 | disposition home or self-care (01) ==
LOC: GOSHIMG 10:42
PROVIDERS: PCP Internal Medicine; Visit Provider Orthopaedic Surgery
DX: S46.811A Strain of other muscles, fascia and tendons at shoulder and upper arm level, right arm, initial encounter (principal); X58.XXXA Exposure to other specified factors, initial encounter; M19.011 Primary osteoarthritis, right shoulder
CPT/HCPCS: 73221

== ENCOUNTER 2024-11-10 00:10 | Day surgery (SDC) | payer MEDICARE, OTHER, SELFPAY ==
[2024-08-29 12:40] VITALS: BMI 25.0
[2024-11-04 11:39] VITALS: BMI 25.0
[2024-11-10 09:43] VITALS: BP 149/93; PULSE 71; RESP 18; TEMP 36.3; O2SAT 100; BMI 23.8
--- NOTE | 2024-11-10 09:53 | P.PNAN_ITS ---
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 Patient Data Age: 69 Gender: F Height: 1.6 m Weight: 64 kg Allergies Allergy/AdvReac Type Severity Reaction Status Date / Time Sulfa (Sulfonamide Allergy Unknown Rash Verified 11/10/24 09:42 Antibiotics) Home Medications ?Medication ?Instructions ?Recorded ?Confirmed ?Type ergocalciferol (vitamin D2) 25,000 50,000 unit PO .14D 08/18/20 11/10/24 History unit capsule estradiol 0.5 mg tablet (Estrace) 0.5 mg PO DAILY 08/18/20 11/10/24 History lisinopril 10 mg tablet 10 mg PO QAM 08/18/20 11/10/24 History calcium carbonate (Calcium 600) 1,200 mg PO DAILY 09/24/24 11/10/24 History glucosamine 500 2 cap PO DAILY 09/24/24 11/10/24 History et-meabhphai-zpoavftc comp 400 mg-D3 667 unit-C-Mn cap magnesium 200 mg tablet 200 mg PO DAILY 09/24/24 11/10/24 History medroxyprogesterone 2.5 mg tablet 1.25 mg PO DAILY 09/24/24 11/10/24 History mecobalamin (vitamin B12) 1,000 1,000 mcg sublingual DAILY 11/04/24 11/10/24 History mcg disintegrating tablet,sublingual Patient hx anesthesia problems: none Family hx anesthesia problems: none Results Review: All pre-operative results and documents have been reviewed as part of the pre- operative evaluation. REPLACED BY [facility] Past Medical History Medical History Ulcerative colitis Overweight (BMI 25.0-29.9) Colitis Osteoarthritis H/O: HTN (hypertension) Paroxysmal A-fib Surgical History Surgical History History of cholecystectomy History of shoulder surgery History of cardiac radiofrequency ablation S/P total knee arthroplasty bilateral Family History Family History Mother Depression Hypertension Father Heart disease Social History Social History Smoking status: Never smoker Second hand tobacco smoke exposure: No Alcohol intake: current Drinks per week: 2 Substance use: never Substance use type: does not use Current Housing: Decline to Answer Concerned About Future Housing: Decline to Answer Difficulty Paying Gas/Electric Bills: Decline to Answer Difficulty Paying for Meds: Decline to Answer Currently Unemployed: Decline to Answer Education: Decline to Answer Difficulty w/ Childcare or Family Care: Decline to Answer Living arrangements: with family Gender identity (if verbalized by the patient): Female Spiritual care concerns: No Anes - Eval Final PreProcedure Day of Procedure 11/10/24 09:53 Patient weight: normal Heart: regular rate and rhythm Lungs: clear to auscultation and normal air movement Airway: Mallampati scale class II Neurological: alert and oriented Last oral intake: >/= 8 hours ASA classification: III Emergent: no Anesthetic plan: proceed Anesthesia type and monitoring: general GIVS and standard monitoring Results Review: All pre-operative results and documents have been reviewed as part of the pre- operative evaluation. Informed Consent: The patient's anesthetic plan and its attendant risks and benefits were discussed with the patient/family/POA. Questions were solicited and answers provided to the satisfaction of the patient/family/POA.
--- NOTE | 2024-11-10 10:08 | P.HP_ITS ---
H&P: HPI History of Present Illness Date/Time: 11/10/24 10:08 Chief Complaint: History of ulcerative colitis Narrative: the patient has more than 20 years of ulcerative colitis diagnosis. She has never been hospitalized or on biologic therapy. She has been taking mesalamine for years, however over the past years he has been on no medication. She is currently asymptomatic and here for surveillance colonoscopy. Review of Systems Review of Systems: All systems reviewed & are unremarkable except as noted in HPI and below PMFSH Past Medical History Medical History Ulcerative colitis Overweight (BMI 25.0-29.9) Colitis Osteoarthritis H/O: HTN (hypertension) Paroxysmal A-fib Surgical History Surgical History History of cholecystectomy History of shoulder surgery History of cardiac radiofrequency ablation S/P total knee arthroplasty bilateral Family History Family History Mother Depression Hypertension Father Heart disease Social History Social History Smoking status: Never smoker Second hand tobacco smoke exposure: No Alcohol intake: current Drinks per week: 2 Substance use: never Substance use type: does not use Current Housing: Decline to Answer Concerned About Future Housing: Decline to Answer Difficulty Paying Gas/Electric Bills: Decline to Answer Difficulty Paying for Meds: Decline to Answer Currently Unemployed: Decline to Answer Education: Decline to Answer Difficulty w/ Childcare or Family Care: Decline to Answer Living arrangements: with family Gender identity (if verbalized by the patient): Female Spiritual care concerns: No Meds Home Medications and Allergies Home Medications ?Medication ?Instructions ?Recorded ?Confirmed ?Type ergocalciferol (vitamin D2) 25,000 50,000 unit PO .14D 08/18/20 11/10/24 History unit capsule estradiol 0.5 mg tablet (Estrace) 0.5 mg PO DAILY 08/18/20 11/10/24 History lisinopril 10 mg tablet 10 mg PO QAM 08/18/20 11/10/24 History calcium carbonate (Calcium 600) 1,200 mg PO DAILY 09/24/24 11/10/24 History glucosamine 500 2 cap PO DAILY 09/24/24 11/10/24 History hj-qfwtoqzai-larqburr comp 400 mg-D3 667 unit-C-Mn cap magnesium 200 mg tablet 200 mg PO DAILY 09/24/24 11/10/24 History medroxyprogesterone 2.5 mg tablet 1.25 mg PO DAILY 09/24/24 11/10/24 History mecobalamin (vitamin B12) 1,000 1,000 mcg sublingual DAILY 11/04/24 11/10/24 History mcg disintegrating tablet,sublingual Allergies Allergy/AdvReac Type Severity Reaction Status Date / Time Sulfa (Sulfonamide Allergy Unknown Rash Verified 11/10/24 09:42 Antibiotics) Vital Signs Vital Signs - 24 hr 11/10/24 09:43 Temperature 97.4 F L Pulse Rate 71 Respiratory Rate 18 Blood Pressure 149/93 H Pulse Oximetry 100 Oxygen Delivery Room Air Exam Const: General: cooperative and healthy appearing Resp: Effort & Inspection: normal respiratory effort and able to speak in comp lete sentences Auscultation: clear to auscultation bilaterally Cardio: Rate: regular rate Rhythm: regular rhythm GI: Inspection: normal to inspection GI Palp: No No hepatosplenomegaly present Auscultation: normal bowel sounds Rectal Exam: deferred Skin: General skin exam: normal color Psych: Appearance: grossly normal Mental Status: mental status grossly normal Assessment and Plan Assessment and plan (1) Left sided ulcerative colitis: Code(s): K51.50 - Left sided colitis without complications Status: Acute Assessment and Plan: The patient is deemed a good candidate for the procedure. Consent signed. Will proceed.
[2024-11-10] MEDS: LACTATED RINGERS 1,000 ML 150 ML IV CONT (10:11)
[2024-11-10 11:02] VITALS: BP 128/72; PULSE 74; RESP 22; O2SAT 100
[2024-11-10 11:12] VITALS: BP 155/88; PULSE 66; RESP 20; O2SAT 96
[2024-11-10 11:22] VITALS: BP 156/88; PULSE 59; RESP 20; O2SAT 99
--- OUTSIDE RECORDS SUMMARY | 2024-11-13 11:05 | XMS_ITS | Continuity of Care Document ---
Author Organization [facility] Address [address] [place] [address] [address] [place] [address] Phone Care Team Providers Care Conservation Specialist Name Role Phone Leona Freed Unavailable Unavailable Procedures Procedure Date Office/outpatient Visit, [facility] Advance Directives Directive Yes / No Effective Date File Name No Information Encounters Encounter Description Practice Location Reason(s) For Visit Diagnoses Date Provider Providers Copied on Encounter Office/outpat ient Visit, [facility], [address] [place] [address] [address], [place], [place], [id number], [place] tel:[phone] SEC [facility] No Information Dec- 5-200 8 Lourdes Delgadillo. [address] , [address], [place], [address], [place]. tel:[phone] Family History Family Member Type Diagnosis Age At Onset No Information Payers Payer name Insurance type Covered alliance party ID Authoriza tion(s) No Information Social History Type Description Quantity Date Captured Comments Sex Female Smoking Status No Information Chief Complaint And Reason For Visit No Information Reason For Referral Reason For Referral No Information History Of Present Illness Encounter Date Complaint History Of Prese nt Illness No Information Functional Status Date Functional Assessmen t No Information Instructions Date Instruction Additional Infor mation No Information Assessments Type Assessment Date No Information Patient Care Teams Name Effective Dates (start - stop) Status Members No Information
--- OUTSIDE RECORDS SUMMARY | 2024-11-13 11:05 | XMS_ITS | Referral Summary ---
Author Organization [facility] [address] [facility] [address] Address [address] [place] [address] Care Team Providers Care Senior Industrial Engineer Name Role Phone Tam Hardy MD Primary Care Provider Encounters Date Type Department Care Team Description 10/10/[address] [facility] Cardiology [address] [place] [address] ProviderViral MD 10/10/2024 2:00 PM PLUMBING INSTRUCTOR Office Visit [facility] Medical [facility] Cardiology [address] [facility] [address] [place] [address] Talib Sun MD Paroxysmal atrial fibrillation (CMS/HCC) (HCC) (Primary Dx); Pulmonary hypertension (HCC); S/P ablation of atrial flutter; Status post ablation of atrial fibrillation; Palpitations; Benign hypertension from Last 3 Months Allergies Active Allergy Reactions Criticality Noted Date Comments Sulfa (Sulfonamide Antibiotics) Rash Medium Medications cyanocobalamin (vitamin B-12) 100 mcg tablet take 1 by Oral route once 0 0 09/27/2016 Active glucosamine-cho ndroitin 250-200 mg tablet take one by mouth twice daily 0 0 09/27/2016 Active ergocalciferol (VITAMIN D2) 50,000 unit capsule take 1 capsule by oral route every week 0 0 09/27/2016 Active calcium carbonate-mag hydroxid 1,000-200 mg tablet,chewable Take 1 tablet by mouth daily Active fexofenadine (SHARON) 180 mg tablet Take 1 tablet (180 mg total) by mouth daily Active methylsulfonylm ethane 1,000 mg tablet Take by mouth Active estradioL (ESTRACE) 0.5 mg tablet Take 1 tablet (0.5 mg total) by mouth daily Take 0.5 tablets daily Active medroxyPROGESTE Giovanny (PROVERA) 2.5 mg tablet Take 0.5 tablets (1.25 mg total) by mouth daily 05/04/2023 Active lisinopriL (PRINIVIL,ZESTR IL) 10 mg tablet TAKE 1 TABLET BY MOUTH EVERY DAY 90 tablet 3 02/12/2024 Active Active Problems Problem Noted Date Diagnosed Date Status post ablation of atrial fibrillation 05/23 S/P ablation of atrial flutter 06/15/2021 meterman current use of antiarrhythmic drug 04/2020 Assessment & Plan (01/25/2021 1:38 PM CDT): 12-lead ECG today does not demonstrate any changes that would prohibit continued use of propafenone. We will continue the patient on the same dose and schedule. It will be my intention to discontinue this medication 1 month post ablation, if successful. As long as the patient continues on this medication, an ECG should be performed at least every 6 months to monitor for toxicity. Medication side effects 11/28/2019 Anticoagulation management encounter 09/16/2019 Assessment & Plan (01/15/2022 3:45 PM CDT): The patient is a poor anticoagulation candidate because of chronic GI bleeding related to her ulcerative colitis. The patient will follow-up with me in 12 months for an office visit and twelve- lead ECG. Assessment & Plan (01/25/2021 1:37 PM CDT): The patient has a [id number]-[id number] score of 3 (annualized risk of stroke 3%). The patient cannot take long-term anticoagulation because of lower GI bleeding. As above, we will attempt to anticoagulate the patient for 1-2 months following ablation. Additionally, in the future, Watchman left atrial appendage occlusion device placement can be considered (again, allowing that the patient can take anticoagulation for 45 days post device placement). Assessment & Plan (09/16/2019 4:11 PM PLUMBING INSTRUCTOR): The patient has a DRG0CT1-JIUi score of 2 (annualized risk of stroke 2%). One point is for female gender, so the patient is at limited risk of thromboembolic event. She has severe recurrent GI bleeding that would prohibit the use of anticoagulation even if her risk was elevated. The patient will follow-up with me in 6 months for an office visit and twelve- lead ECG. Hypokalemia 09/05/2019 Palpitations 02/28/2019 PAC (premature atrial contraction) 02/06/2019 Atrial tachycardia 02/06/2019 Chronic ulcerative proctitis 09/27/2016 Overview (01/27/2017): Ulcerative proctitis with rectal bleeding Diastolic dysfunction 09/27/2016 Overview (01/27/2017): Diastolic dysfunction Pulmonary hypertension 09/27/2016 Overview (01/27/2017): Pulmonary HTN Benign hypertension 09/27/2016 Overview (01/27/2017): HTN (hypertension), benign Tricuspid valve insufficiency 09/27/2016 Overview (01/27/2017): Tricuspid valve insufficiency, unspecified etiology Paroxysmal atrial fibrillation (CMS/HCC) 016 Overview (01/27/2017): Paroxysmal atrial fibrillation Assessment & Plan (06/13/2024 5:27 PM CDT): The patient is 3 year status post ablation for atrial fibrillation, doing well. Maintaining sinus rhythm without antiarrhythmic drug therapy. No changes to management She is not a candidate for anticoagulation given her ulcerative colitis. The patient will follow-up with me in 12 months for an office visit and twelve- lead ECG. Assessment & Plan (06/17/2023 2:33 PM CDT): The patient is 2 years status post ablation for atrial fibrillation, doing well. Maintaining sinus rhythm with without antiarrhythmic drug therapy. No changes to management The patient has a GXR1CD8-ZKBf score of 3. She is unable to take anticoagulation because of recurrent GI bleeding. If her atrial arrhythmia recurs, we can discuss left atrial appendage occlusion. The patient will follow-up with me in 12 months for an office visit and twelve- lead ECG. Assessment & Plan (01/15/2022 3:44 PM CDT): Paroxysmal atrial fibrillation, symptomatic. Presently 1 year post ablation. Doing well without medications. We will continue to monitor and follow closely, and manage new / recurrent arrhythmia expectantly. Assessment & Plan (01/25/2021 1:39 PM CDT): Paroxysmal atrial fibrillation, highly symptomatic. The patient has continued to experience symptoms despite ongoing therapy with propafenone. She is interested in undergoing catheter ablation. We discussed the rationale for atrial fibrillation ablation, including the steps involved in ablation. I detailed the risks of the procedure, including vascular injury/hematoma, myocardial injury/perforation, stroke, myocardial infarction, pulmonary vein stenosis, thermal esophageal injury, phrenic nerve injury, and . I estimated a 70-80% chance of freedom from long-term atrial arrhythmia, and the patient understands that occasionally a second procedure is necessary. Previously, the patient was reluctant to proceed with ablation because of her inability to take anticoagulation in the long-term. In order for the patient to undergo ablation, she will need to initiate therapeutic anticoagulation (apixaban preferably) and remain on this for 1-2 months. The patient is tolerant of aspirin, and apixaban has been shown to have roughly the same rates of bleeding is aspirin in clinical trials. Therefore, we will plan on proceeding. I will plan on having a KERVIN performed immediately prior to ablation, as the patient has not been on anticoagulation. Assessment & Plan (03/13/2020 11:47 AM CDT): The patient has paroxysmal atrial fibrillation/tachycardia. She is presently experiencing minimal symptoms with ongoing therapy with propafenone. However, she has some fatigue, likely as a result of medication. She found the use of flecainide to be less beneficial. Without the ability to take anticoagulation, catheter ablation is prohibitively dangerous. She has a chads Vasc score of 2, and does not require long-term anticoagulation per current recommendations. The patient will follow-up with me in 6 months for an office visit and twelve- lead ECG. Assessment & Plan (09/16/2019 4:10 PM PLUMBING INSTRUCTOR): The patient has symptomatic paroxysmal atrial fibrillation/atrial tachycardia. We discussed antiarrhythmic therapy to suppress her symptoms, and I recommended that the patient initiate flecainide. I recommended that the patient continue on diltiazem and initiate therapy with low dose flecainide (50 mg twice daily). After 2-3 doses, we will obtain an ECG, in order to ensure that the patient is tolerating this medication without excessive QT prolongation. If the medication is tolerated, we may advance the dose (to a target of 100 mg) and repeat an ECG again after several doses. Assessment & Plan (02/06/2019 2:03 PM CDT): The patient has highly symptomatic palpitations and tachycardia which have been associated with atrial ectopy, atrial tachycardia, and at one point an episode of atrial fibrillation (though this was in the context of pneumonia). The patient has a contraindication anticoagulation in that she has severe recurrent GI bleeding. Her CHADS-VASc score is 2 (with 1.4 being female), so at this point, she does not likely require anticoagulation for long-term thromboprophylaxis. However, this would limit therapeutic options for treating her atrial arrhythmia (neither cardioversion or ablation / PVI should be considered unless the patient can take anticoagulation for 1 month). Fortunately, the patient is doing very well at present. She attributes that to recently initiating potassium supplementation. She experiences fatigue which she associates with the negative chronotropic effect of diltiazem. The patient would like to decrease her dose of diltiazem. If she experiences recurrence of symptoms, we may consider antiarrhythmic drug therapy in the form of flecainide. The patient will follow-up with me in 6 months for an office visit and twelve- lead ECG. Arthropathy of hand 08/05/2014 Thumb pain 08/05/2014 Social History Tobacco Use Types Packs/Day Years Used Date Smoking Tobacco: Never Smokeless Tobacco: Never Tobacco Cessation:Counseling Given: Not Answered Alcohol Use Standard Drinks/Week Comments Yes 2 (1 standard drink = 0.6 oz pur e alcohol) Comments Unknown Sex and Gender Information Value Date Recorded Sex Assigned at Not on file Legal Sex Female 11:40 PM PLUMBING INSTRUCTOR Gender Identity Not on file Sexual Orientation Not on file Last Filed Vital Signs Vital Sign Reading Time Taken Comments Blood Pressure 122/74 10/10/2024 1:53 PM PLUMBING INSTRUCTOR Pulse 88 10/10/2024 1:53 PM PLUMBING INSTRUCTOR Temperature 37 ??C (98.6 ??F) 02/15/2021 9:02 AM CDT Respiratory Rate 18 01/13/2022 10:51 AM CDT Oxygen Saturation 98% 10/10/2024 1:53 PM PLUMBING INSTRUCTOR Inhaled Oxygen Concentration - - Weight 62.6 kg (138 lb) 10/10/2024 1:53 PM PLUMBING INSTRUCTOR Height 160 cm (5' 3 ) 10/10/2024 1:53 PM PLUMBING INSTRUCTOR Body Mass Index 24.45 10/10/2024 1:53 PM PLUMBING INSTRUCTOR Plan of Treatment Not on file Medical Devices Implanted Type Area Biodiesel Plant Superintendent Device Identifier Shelf Expiration Date Model / Serial / Lot [employer] [id number] System 6-12fr Mvp Venous Closure Vascade - [id number] - [id number] Implanted:Qty: 1 on 02/14/2021 by Ulises Dubose MD at [facility] [employer] 12/13/2022 800-612C-1 [id number] / [id number] / [id number] [employer] [id number] System 6-12fr Mvp Venous Closure Vascade - [id number] - [id number] Implanted:Qty: 1 on 02/14/2021 by Ulises Dubose MD at [facility] [employer] 12/13/2022 800-612C-1 0U / [id number] / [id number] [employer] [id number] System 6-12fr Mvp Venous Closure Vascade - [id number] - [id number] Implanted:Qty: 1 on 02/14/2021 by Ulises Dubose MD at [facility] [employer] 12/13/2022 800-612C-1 0U / [id number] / [id number] [employer] [id number] Vascade 6/7fr Bioabsorbable Vascular System Compression Collagen - [id number] - [id number] Implanted:Qty: 1 on 02/14/2021 by Ulises Dubose MD at [facility] [employer] 11/29/2022 [id number]-0 [id number] / [id number] / [id number] Procedures Procedure Name Priority Date/Time Associated Diagnosis Comments LIPID PANEL Routine 09/24/2024 3:08 PM PLUMBING INSTRUCTOR from Last 3 Months Results * Lipid panel (09/24/2024 3:08 PM PLUMBING INSTRUCTOR) SCRIBED Cholesterol, Total 158 <200 [facility] SCRIB[facility] HDL 50 >40 [facility] LDL 93 <100 [facility] SCR[facility] Triglycerides 65 <150 [facility] Blood us Historical Provider LAB BLOOD ORDERABLES Edit ed Result - Final [facility] from Last 3 Months Insurance MEDICARE [facility] MEDICARE [facility] MEDICARE [facility]ICE [facility] H[facility]/PPO Address: [address] [address] [place] [address] Advance Directives For more information, please contact: [phone] * Full Code (Latest Code Status on File) Date Activated Date Inactivated Comments 02/14/2021 6:50 PM 02/15/2021 3:17 PM Care Teams Senior Industrial Engineer Relationship Specialty Start Date End Date Tam Hardy MD PCP - General Internal Medicine 04/27/17
--- OUTSIDE RECORDS SUMMARY | 2024-11-13 11:05 | XMS_ITS | Encounter Summary ---
Author Organization [facility] Address [address] [place] [address] Care Team Providers Care Peace Officer Name Role Phone Narinder Lozano DO Primary Care Provider Encounter Details Date Type Department Care Team (Late st Contact Info) Description 07/11/2005 Outpatient Historical [facility] MRI DEPT Marcos Amor DPM [address] [place] [address] ARTHROPATHY NOS-ANKLE (Primary Dx) Social History Tobacco Use Types Packs/Day Years Used Date Smoking Tobacco: Never Assessed Comments Unknown Sex and Gender Information Value Date Recorded Sex Assigned at Not on file Legal Sex Female 5:03 AM AIRLINE CUSTOMER SERVICE AGENT Gender Identity Not on file Sexual Orientation Not on file documented as of this encounter Plan of Treatment Not on file documented as of this encounter Visit Diagnoses Diagnosis Unspecified arthropathy, ankle and foot- Primary documented in this encounter Care Teams Peace Officer Relationship Specialty Start Date End Date Narinder Lozano DO PCP - General Internal Medicine 09/04/16 documented as of this encounter
--- OUTSIDE RECORDS SUMMARY | 2024-11-13 11:05 | XMS_ITS | Data Portability ---
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 Hypertension continue current therapy. Osteopenia once she gets all the stuff done with the implants repeat BMD if available and see if she is cleared for some type of agent for her bones. Continue to take her vitamin-D rhinitis will be continued with fluticasone follow-up ulcerative colitis with GI return to this clinic for 6 Not available 05/29/2023 14:45:27 07/27/2023 07/27/2023 ENT. Some Valium for vestibular suppression she just came off antibiotics I do not see anything infectious at this point I will await ENTs opinion [email or web address] Not available 07/28/2023 13:20:33 10/30/2023 10/30/2023 Continue current therapy follow-up 6 months all questions have been answered [email or web address] Not available 10/30/2023 22:23:58 Plan of Treatment Reminders Order Date Submit Date Provider Last Modified By Organization Details Last Modified Time Details Appointments None recorded. Lab None recorded. Referral ENT surgery referral 2022 023 LJ Hurst, [address], [place], [address], 11/20/202 3 21:15:18 Procedures None recorded. Surgeries None recorded. Imaging None recorded. Medication Orders amoxicillin 500 mg capsule 2022 023 [email or web address] [facility] [address], [place], [address], 3 13:58:55 triamcinolo ne acetonide 0.1 % topical cream 2022 023 [facility] [address], [address], [place], [address], 3 16:02:20 Patient TargetsNo targets recorded. Patient InstructionsNo instructions recorded. Reason for Referral ENT Surgery Referral for Justin n of ear Referring Physician: Jeanette Hardy, Internal Medicine, Encounter Date: 07/27/2023 Results Created Date Observation Date Name Description Value Unit Range Abnormal Flag Note LastModifiedBy Organization Detail LastModifiedTime 12/23/1912/22/2022 CT, sinus es, w/o contr ast No observ ation record ed. [facility] [address], [place], [address], 02/20/2023 09:32:43 01/03/20 23 12/02/2022 MRI, lumba r spine , w/o contr ast No observ ation record ed. [email or web address] Not Available 11/2022 09:32:43 03/13/20 23 03/13/2023 XR, shoul adebayo No observ ation record ed. [address], [place], [address], 05/30/2023 09:31:18 03/03/20 24 02/29/2024 XR, cervi mason spine , 2 or 3 view No observ ation record ed. [email or web address] [facility] [address], [place], [address], 07/07/2024 13:10:36 03/15/20 24 03/15/2024 MRI, cervi mason spine , w/o contr ast No observ ation record ed. [facility] [address] [facility], [place], [address], 07/07/2024 17:04:22 Result Notes None recorded. Problems Name Problem SNOMED Code Status Onset Date Resolution Date Notes Provider Name and Address Organization Details Recorded Time Abdominal pain 71421904 Active 2016 Not Available [facility] 3 01:18:58 Low back pain 562197972 Active 2021 Not Available [facility] 3 01:18:58 Pain of left hip joint 32785034483 9100 Active 2021 Not Available [facility] 3 01:18:58 Sinusitis 24534599 Active 2021 Not Available [facility] 3 01:18:58 Chronic sinusitis 39065333 Active 2022 Not Available [facility] 3 01:18:58 Chronic ulcerativ e colitis 042583206 Active 2016 Not Available [facility] 3 01:18:58 Hip pain 74850685 Active 2021 Not Available [facility] 3 01:18:58 Atrial fibrillat ion 71388546 Active 2016 no AC because of inflammat ory bowel disease Not Available [facility] 3 01:18:58 Cough 70345331 Active 2021 Not Available [facility] 3 01:18:59 Upper respirato ry infection 41513226 Active 2021 Not Available [facility] 3 01:18:59 Acute upper respirato ry infection 16021913 Active 2021 Not Available [facility] 3 01:18:59 Essential hypertens ion 92722429 Active 2016 Not Available [facility] 3 01:18:59 Generaliz ed rash 737717467 Active 2021 Not Available [facility] 3 01:18:59 COVID-19 579099663 Active 2021 Not Available [facility] 3 01:18:59 Chronic rhinitis 43468411 Active 2016 Not Available [facility] 3 01:18:59 Otitis media 63196840 Active 2022 Samm Covarrubias RMA null, [place] [facility] 3 15:49:08 Earache symptom 689479596 Active 2022 Marjan Arevalo RN null, [place] [facility] 3 11:25:13 Pain of ear 077137043 Active 2022 Samm Covarrubias RMA null, [place] [facility] 3 13:36:13 Vertigo 138897861 Active 2022 Samm Gonzalezalberto RMA null, [place] [facility] 3 13:36:56 Problem Notes None recorded. Procedures Surgical History Date Name Laterality Status Provider Name and Address Organization Details Recorded Time 11/13/19 23 Dental completed Not Available [facility] 12/20/2022 01:05:40 08/27/20 20 Rotator cuff surgery completed Not Available [facility] 12/20/2022 01:05:40 10/16/20 14 Orthopedic Surgery completed Not Available [facility] 12/20/2022 01:05:40 06/04/20 14 Unlisted procedure nose completed Not Available [facility] 12/20/2022 01:05:40 10/28/19 09 total knee replacement completed Not Available [facility] 12/20/2022 01:05:40 07/28/20 07 Knee Replacement completed Not Available [facility] 12/20/2022 01:05:40 07/12/20 06 Arthroscopy completed Not Available [facility] 12/20/2022 01:05:40 01/11/20 06 Cholecystectomy completed Not Available [facility] 12/20/2022 01:05:40 07/19/20 05 other completed Not Available [facility] 12/20/2022 01:05:40 07/05/20 05 Arthroscopy completed Not Available [facility] 12/20/2022 01:05:40 intravenous blood transfusion completed Not Available [facility] 12/20/2022 01:05:40 destruction of lesion of heart completed Not Available [facility] 12/20/2022 01:05:40 Imaging Results Imaging Date Name Status LastModified by Organiz ation Details LastModified Time 12/22/2022 CT, sinuses, w/o contrast completed [email or web address] [facility] [address], [place], [address], 02/20/2023 09:32:43 12/02/2022 MRI, lumbar spine, w/o contrast completed [email or web address] Information not available 02/20/2023 09:32:43 03/13/2023 XR, shoulder completed [email or web address] [facility] [address], [place], [address], 05/30/2023 09:31:18 02/29/2024 XR, cervical spine, 2 or 3 view completed [email or web address] [facility] [address], [place], [address], 07/07/2024 13:10:36 03/15/2024 MRI, cervical spine, w/o contrast completed [email or web address] [facility] [address], [place], [address], 07/07/2024 17:04:22 Procedure Notes None recorded. Medical Equipment None Reported. Allergies Allergen ID Allergen Name Allergen Category Reaction Reaction Severity Criticality Documentation Date Start Date Code Code System Note Provider Name and Address Organization Details Recorded Time 2794 Substance with sulfonami de structure and antibacte rial mechanism of action (substanc e) medicatio n rash Not available Not available 12/20/2022 65123 8003 SNOMED Not Available [facility] 01:38:41 Medications Name Sig Start Date Stop Date Status Note LastModified by Organization Details LastModified Time amoxicill in 500 mg capsule TAKE 1 CAPSULE BY MOUTH THREE TIMES DAILY 05/29 completed Not Available Not Available Not Available bupropion HCl SR 150 mg tablet,12 hr sustained -release TAKE ONE TABLET TWICE DAILY 11/15 completed Not Available Not Available Not Available prednison e 10 mg tablet 4 tablets daily x 5 days 05/23 completed Not Available Not Available Not Available doxycycli ne hyclate 100 mg capsule Take 1 capsule twice a day by oral route for 7 days. active Not Available Not Available No t Available aspirin 325 mg tablet Take 1 tablet every day by oral route. 05/18 completed Not Available Not Available Not Available medroxypr ogesteron e 2.5 mg tablet TAKE 1 TABLET BY MOUTH ONCE DAILY active Not Available Not Available No t Available prednison e 20 mg tablet Take 2 tablets every day by oral route for 5 days. active Not Available Not Available No t Available Zithromax Z-Neymar 250 mg tablet TAKE 2 TABLETS (500 MG) BY ORAL ROUTE ONCE DAILY FOR 1 DAY THEN 1 TABLET (250 MG) BY ORAL ROUTE ONCE DAILY FOR 4 DAYS 05/23 completed Not Available Not Available Not Available potassium chloride ER 10 mEq tablet,ex tended release TAKE ONE TABLET DAILY 12/17 completed Not Available Not Available Not Available omeprazol e 40 mg capsule,d elayed release Take 1 capsule every day by oral route. 05/09 completed Not Available Not Available Not Available triamcino lone acetonide 0.1 % topical cream APPLY A THIN LAYER TO THE AFFECTED AREA BY TOPICAL ROUTE DAILY NEEDED active Not Available Not Available No t Available amoxicill in 500 mg tablet Take 1 tablet 3 times a day by oral route for 7 days. 05/23 completed pt aware only start if Predniso ne does not help Not Available Not Available Not Available oxycodone -acetamin ophen 5 mg-325 mg tablet TAKE 1 TABLET BY MOUTH EVERY 4 TO 6 HOURS NEEDED FOR PAIN 05/29 completed Not Available Not Available Not Available propafeno ne 225 mg tablet Take 1 tablet twice a day by oral route. 06/23 completed Not Available Not Available Not Available Xanax 0.25 mg tablet Take 1 tablet 3 times a day by oral route. 11/14 completed Not Available Not Available Not Available lisinopri l 10 mg tablet TAKE 1 TABLET BY MOUTH ONCE DAILY active Not Available Not Available No t Available polymyxin B sulfate 10,000 unit-trim ethoprim 1 mg/mL eye drops INT 1 GTT IN OD Q 3 H WA FOR 7 DAYS UTD active Not Available Not Available No t Available flecainid e 50 mg tablet 12/17 completed Not Available Not Available Not Available diltiazem CD 120 mg capsule,e xtended release 24 hr TK ONE C PO D 06/23 completed Not Available Not Available Not Available monteluka st 10 mg tablet TAKE ONE TABLET DAILY 12/17 completed Not Available Not Available Not Available lisinopri l 5 mg tablet TAKE ONE TABLET DAILY 12/17 completed Not Available Not Available Not Available estradiol 0.5 mg tablet TAKE 1 TABLET BY MOUTH ONCE DAILY active Not Available Not Available No t Available ergocalci ferol (vitamin D2) 1,250 mcg (50,000 unit) capsule TAKE 1 CAPSULE BY MOUTH 3 TIMES EVERY MONTH active Not Available Not Available No t Available cefuroxim e axetil 500 mg tablet Take 1 tablet twice a day by oral route for 21 days. 05/30 completed Not Available Not Available Not Available polyethyl philip glycol 3350 17 gram/dose oral powder 11/14 completed Not Available Not Available Not Available levofloxa nelly 750 mg tablet TAKE ONE TABLET DAILY UNTIL ALL TAKEN STARTING Sunday09/17/1603/16 completed Not Available Not Available Not Available methylpre dnisolone 4 mg tablets in a dose pack Take as directed 11/30 completed Not Available Not Available Not Available albuterol sulfate HFA 90 mcg/actua tion aerosol inhaler Inhale 2 puffs every 4-6 hours by inhalati on route as needed. 02/19 completed Not Available Not Available Not Available cefdinir 300 mg capsule Take 1 capsule twice a day by oral route. active Not Available Not Available No t Available fluticaso ne propionat e 50 mcg/actua tion nasal spray,katie pension [place] 2 sprays every day by intranas al route as needed. active Not Available Not Available No t Available lisinopri l 2.5 mg tablet TAKE ONE TABLET DAILY 05/23 completed Not Available Not Available Not Available doxycycli ne hyclate 100 mg tablet TK 1 T PO BID FOR 7 DAYS active Not Available Not Available No t Available ipratropi um bromide 21 mcg (0.03 %) nasal spray USE 2 SPRAY(S) IN EACH NOSTRIL TWICE DAILY active Not Available Not Available No t Available vitamin B complex capsule Take by oral route. 2019 active Not Available Not Available Not Avai lable diazepam 5 mg tablet TAKE 1/2 (ONE-NOÉ F) TABLET BY MOUTH TWICE DAILY NEEDED active Not Available Not Available No t Available amoxicill in 875 mg-potass ium clavulana te 125 mg tablet TAKE 1 TABLET BY MOUTH EVERY 12 HOURS FOR 7 DAYS 10/30 completed Not Available Not Available Not Available Aspir-Tri n 325 mg tablet,de layed release Take 1 tablet every day by oral route. 06/23 completed Not Available Not Available Not Available cyclobenz aprine 5 mg tablet TAKE 1 TABLET BY MOUTH THREE TIMES DAILY NEEDED FOR MUSCLE SPASM 10/30 completed Not Available Not Available Not Available moxifloxa nelly 0.5 % eye drops 11/14 completed Not Available Not Available Not Available metoprolo l tartrate 25 mg tablet Take 1 tablet twice a day by oral route. 01/24 completed Not Available Not Available Not Available propafeno ne ER 225 mg capsule,e xtended release 12 hr TAKE 1 CAPSULE BY MOUTH TWICE A DAY 06/23 completed Not Available Not Available Not Available estradiol 0.5mg Take 1 tab daily 02/19 completed Not Available Not Available Not Available Vitamin D3 one capsule [id number] 2019 active duplicat e Not Available Not Available Not Available fexofenad ine 180 mg once a day 2019 active Not Available Not Available Not Avai lable mesalamin e 1.2 gram tablet,de layed release TAKE 2 TABLETS BY MOUTH ONCE DAILY 05/30 completed Not Available Not Available Not Available Activella 0.5 mg-0.1 mg tablet TAKE ONE TABLET DAILY 11/15 completed Not Available Not Available Not Available mesalamin e ER 0.375 gram capsule,e xtended release 24 hr TAKE 1 CAPSULES BY MOUTH ONCE DAILY IN THE MORNING active Not Available Not Available No t Available B12 05/18 completed Not Available Not Available Not Available Xarelto 20 mg tablet 11/06 completed Not Available Not Available Not Available Eliquis 5 mg tablet 06/23 completed Not Available Not Available Not Available glucosami ne 116 mg-chondr oitin 100 mg-dietar y supplemen t #25 capsule Take by oral route. 2020 active Not Available Not Available Not Avai ashlyn Flonase Allergy Relief 09/06 completed Not Available Not Available Not Available Paxlovid 300 mg (150 mg x 2)-100 mg tablets in a dose pack Take 3 tablets twice a day by oral route for 5 days. active Not Available Not Available No t Available Vitals Date Recorded Body mass index (BMI) Body height Heart rate Body temperature Body weight Systolic blood pressure Diastolic blood pressure Provider Name and Address Organization Details Last Updated DateTime 3 26.2 kg/m2 160.02 cm 78 /min 97.2 [degF] 34508.6 7 g 140 mm[Hg] 80 mm[Hg] Not Available [facility] 3 01:08:40 Date Recorded Body height Body mass index (BMI) Body weight Body temperature Heart rate Systolic blood pressure Diastolic blood pressure Provider Name and Address Organization Details Last Updated DateTime 3 160.02 cm 26.2 kg/m2 32012.6 7 g 98.5 [degF] 67 /min 140 mm[Hg] 82 mm[Hg] BJ Hammer [employer] [facility] [employer] 3 15:08:24 Date Recorded Body height Body mass index (BMI) Body weight Body temperature Heart rate Systolic blood pressure Diastolic blood pressure Provider Name and Address Organization Details Last Updated DateTime 3 160.02 cm 25.3 kg/m2 45695.7 1 g 97.2 [degF] 77 /min 138 mm[Hg] 82 mm[Hg] BJ Hammer [employer] [facility] [employer] 3 14:02:08 Date Recorded Body height Body mass index (BMI) Body weight Body temperature Heart rate Oxygen saturation Oxygen saturation in Arterial blood by Pulse oximetry Systolic blood pressure Diastolic blood pressure Provider Name and Address Organization Details Last Updated DateTime 3 160.02 cm 25.3 kg/m2 63682.7 1 g 97 [degF] 75 /min 98 % 98 % 130 mm[Hg] 80 mm[Hg] Edda Vallejo MA [employer] [facility] [employer] 3 12:47:37 Date Recorded Body height Body mass index (BMI) Body weight Body temperature Heart rate Systolic blood pressure Diastolic blood pressure Provider Name and Address Organization Details Last Updated DateTime 4 160.02 cm 25.2 kg/m2 85907.1 2 g 97.4 [degF] 93 /min 126 mm[Hg] 78 mm[Hg] BJ Hammer [facility] 4 11:09:17 Social History Question Answer Notes LastModified by Organization Details LastModified Time Tobacco Smoking Status Never Smoker BJ Voss [facility] [employer] [facility] 05/29/2023 13:54:45 Do You Have An Advance Directive? No [id number] Information not available 12/20/2022 What Is Your Level Of Alcohol Consumption? Occasional [id number] Information not available 12/20/2022 Do You Wear A Helmet When Biking? No Information not available 05/29/2023 Are You Blind Or Do You Have Difficulty Seeing? No Information not available 05/29/2023 What Is Your Level Of Caffeine Consumption? Occasional [id number] Information not available 12/20/2022 How Much Tobacco Do You Chew? None [id number] Information not available 12/20/2022 In The 14 Days Before Symptom Onset, Have You Had Close Contact With A Laboratory-confi rmed COVID-19 While That Case Was Ill? No Information not available 05/29/2023 In The 14 Days Before Symptom Onset, Have You Had Close Contact With A Person Who Is Under Investigation For COVID-19 While That Person Was Ill? No Information not available 05/29/2023 Are You Deaf Or Do You Have Serious Difficulty Hearing? No Information not available 05/29/2023 What Type Of Diet Are You Following? REGULAR [id number] Information not available 12/20/2022 Which Illicit Or Recreational Drugs Have You Used? None Information not available 05/29/2023 Do You Or Have You Ever Used E-cigarettes Or Vape? Never Used Electronic Cigarettes Information not available 05/29/2023 What Is The Highest Grade Or Level Of School You Have Completed Or The Highest Degree You Have Received? 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 No Information not available 05/29/2023 What Is The Fluoride Status Of Your Home? Unknown Information not available 05/29/2023 Are There Any Guns Present In Your Home? Yes Information not available 05/29/2023 Do You Use Insect Repellent Routinely? No Information not available 05/29/2023 [address] Do You Live? [facility] Information not available 05/29/2023 Do You Have A Medical Power Of Hone Operator? No Information not available 05/29/2023 What Was The Date Of Your Most Recent Tobacco Screening? 10/30/2023 [email or web address] Information not available 10/30/2023 Have You Ever Been Counseled For Unhealthy Alcohol Use? No Information not available 05/29/2023 Do You Have Any Pets? Yes Information not available 05/29/2023 What Is Your Relationship Status? [id number] Information not available 12/20/2022 Do You Use Your Seat Belt Or Car Seat Routinely? Yes Information not available 05/29/2023 Do You Have Smoke And Carbon Monoxide Detectors In Your Home? Yes Information not available 05/29/2023 Are You Passively Exposed To Smoke? No Information not available 05/29/2023 Do You Or Have You Ever Used Smokeless Tobacco? Never Used Smokeless Tobacco [id number] Information not available 12/20/2022 Are There Any Smokers In Your House? No Information not available 05/29/2023 How Much Tobacco Do You Smoke? No [id number] Information not available 12/20/2022 What Types Of Sporting Activities Do You Participate In? None Information not available 05/29/2023 Do You Feel Stressed (tense, Restless, Nervous, Or Anxious, Or Unable To Sleep At Night)? [id number] Information not available 05/29/2023 Do You Use Any Illicit Or Recreational Drugs? No Information not available 05/29/2023 Do You Use Sunscreen Routinely? Yes Information not available 05/29/2023 Has Tobacco Cessation Counseling Been Provided? No Not Needed-ne naila Smoked Information not available 05/29/2023 How Many Years Have You Smoked Tobacco? 0 Information not available 05/29/2023 Have You Recently Traveled Abroad? No Information not available 05/29/2023 Do You Have Any Dietary Restrictions? No Information not available 05/29/2023 Do You Or Have You Ever Used Any Other Forms Of Tobacco Or Nicotine? No Information not available 05/29/2023 Sex: Female Functional Status Question Answer Note LastModified by Organizat ion Details LastModified Time Do you have difficulty walking or climbing stairs? No Information not available 05/29/2023 Do you have transportation difficulties? No Information not available 05/29/2023 Are you able to walk? YESWOREST Information not available 05/29/2023 Do you have difficulty doing errands alone? No Information not available 05/29/2023 Are you able to care for yourself? Yes Information n ot available 05/29/2023 Do you have difficulty dressing or bathing? No Information not available 05/29/2023 What is your exercise level? Moderate [id number] Information not available 12/20/2022 Mental Status Question Answer Note LastModified by Organization D etails LastModified Time Do you have difficulty concentrating, remembering or making decisions? No Information no t available 05/29/2023 Family History Relationship Description Onset Age of this Age Resolved Age Notes LastModified by Organization Details LastModified Time Father Heart disease [id number] Not available 12/20/2022 01:05:44 Mother Hypertensive disorder [id number] Not available 12/20/2022 01:05:44 Mother Depressive disorder [id number] Not available 12/20/2022 01:05:44 Brother Malignant tumor of thyroid gland 52 Partia l Thyroi dectom y cyahl Not available 05/29/2023 13:54:45 Brother Carcinoma in situ of prostate cyahl Not available 2022 13:54:45 Brother Family history of malignant neoplasm thyroi d & testic ford [email or web address] Not available 05/29/2023 13:59:51 Medical History Condition Response NERVE DISEASE N BLINDNESS N RHEUMATIC FEVER N KIDNEY STONES N BLADDER PROBLEMS N OTHER # 1 N POLIO N LUNG DISEASE/DISORDER N RADIATION / CHEMOTHERAPY N COPD N Other # 2 N BLOOD DISEASES N SURGERY N EAR OR HEARING PROBLEMS N MUMPS N BOWEL PROBLEMS Y DEPRESSION (INCLUDING POST ) N STROKE/TIA N ULCERS N BENIGN PROSTATIC HYPERPLASIA N MEASLES N MYOCARDIAL INFARCTION N OBESITY N GERD/NAUSEA N ANEURYSM N URINARY/BLADDER/KIDNEY PROBLEMS N INPATIENT PSYCH CARE N CORONARY ARTERY DISEASE (CAD) N ADDICTION CONCERNS N ENDOMETRIOSIS N Impotence N USE OF BLOOD THINNERS N SKIN PROBLEMS N GASTROINTESTINAL DISORDER N PERIPHERAL VASCULAR DISEASE N MUSCLE,JOINT OR BONE PROBLEMS N GASTROINTESTINAL BLEEDING N BLOOD CLOTS N ASTHMA N CATARACTS N ERECTILE DYSFUNCTION N VARICOSITIES N GI PROBLEMS N Low Testosterone N INFERTILITY N AIDS/HIV N LIVER DISEASE N MALE HYPOGONADISM N HYPERTENSION Y Deficiency N ANXIETY DISORDER N BLOOD TRANSFUSION Y ANEMIA/BLOOD DISORDER N CHRONIC EAR INFECTIONS N BRONCHITIS N TUBERCULOSIS N GLAUCOMA N DIVERTICULITIS N SLEEP APNEA N CHICKENPOX N INFECTIOUS DISEASE N HEART ARRHYTHMIA N PROSTATE N INSOMNIA N HIGH CHOLESTEROL / HYPERLIPIDEMIA N HYPERTHYROIDISM N EYE PROBLEMS N NEUROLOGICAL PROBLEMS N EDEMA N CHRONIC PAIN SYNDROME N HYPOTHYROIDISM N CAROTID BLOCKAGE N CONSTIPATION N BACK / NECK PROBLEMS N ATHEROSCLEROSIS N BREAST PROBLEMS N DIALYSIS N ECZEMA N OSTEOPOROSIS N ARTHRITIS N APPENDICITIS N DIABETES, TYPE N BAD TEETH N ENT N HEARTBURN / REFLUX N AUTISM SPECTRUM DISORDER (ASD) N HEPATITIS / LIVER DISEASE N PULMONARY DISEASE N GOUT N SLEEP DISORDER N ALZHEIMER'S DISEASE N Brain Problems N HERPES N DEMENTIA N HEADACHES/MIGRAINES N SEIZURES/EPILEPSY N VASCULAR DISEASE N PACEMAKER N Blood Disorder N DIZZINESS N HEART DISEASE/HEART PROBLEMS N KIDNEY DISEASE N MULTIPLE SCLEROSIS N CARDIAC ARRHYTHMIA N CANCER: SPECIFY N ANESTHESIA COMPLICATIONS N ATRIAL FIBRILLATION Y Gall Stones N PULMONARY EMBOLISM N AUTOIMMUNE DISEASE N Gynecological HistoryNo gynecological history recorded. Obstetrics History GPAL:G 0 P 0 0 0 0 Immunizations Vaccine Type Date Status Note Provider Nam e and Address Organization Details Recorded Time COVID-19, mRNA, LNP-S, PF, 30 mcg/0.3 mL dose 1 completed Not Available [facility] 12/20/2022 01:38:18 COVID-19, mRNA, LNP-S, PF, 30 mcg/0.3 mL dose 1 completed Not Available [facility] 12/20/2022 01:38:18 COVID-19, mRNA, LNP-S, PF, 30 mcg/0.3 mL dose 1 completed Not Available [facility] 12/20/2022 01:38:18 tetanus toxoid, unspecified formulation 2 completed Not Available [facility] 12/20/2022 01:38:18 Past Encounters Encounter ID Performer Location Encounter Start Date Encounter Closed Date Diagnosis/Indication Diagnosis SNOMED-CT Code Diagnosis ICD10 Code Diagnosis Note [id number] [facility] [place] [address] [place] [address] y , [place] [address] 12/23/2020 00:00:00 12/23/2020 20:48:10 [id number] [facility] [place] l[place]asmin [address] [place] [address] y , [place] [address] 02/01/2021 00:00:00 02/01/2021 22:50:35 [id number] [facility] [place] karl [address] [place] [address] y , [place] [address] 06/23/2021 00:00:00 06/26/2021 21:02:45 [id number] [facility] [place] l[place]as[place] [address] [place] [address] y , [place] [address] 12/06/2021 00:00:00 12/06/2021 21:54:40 [id number] [facility] [place] [address] [place] [address] [place] [address] 12/29/2021 00:00:00 01/22/2022 13:00:44 [id number] [facility] Internal Med [facility] [address], [facility] [address] [place] [address] 04/14/2022 00:00:00 04/16/2022 14:05:28 [id number] [facility] [place] [address] [place] [address] y , [place] [address] 05/30/2022 00:00:00 06/04/2022 21:07:17 [id number] [facility] [place] [address] [facility] [address] [place] [address] 06/28/2022 00:00:00 06/28/2022 16:29:59 [id number] [facility] [place] [address] , [place] [address] 09/21/2022 00:00:00 09/22/2022 22:07:53 [id number] [facility] [place] [address] [facility] y , [place] [address] 11/30/2022 00:00:00 12/03/2022 21:05:24 [id number] Jeanette Hardy MD [facility] [facility] [address] [facility], [facility] [address] [place] [address] 02/19/2023 14:55:54 02/19/2023 15:50:26 Otitis media 10253575 H66.91 [id number] Jeanette Hardy MD [facility] [place] [address] [place] [address] y , [place] [address] 05/29/2023 13:54:32 05/29/2023 14:34:45 Renewal of prescription 822462068 Z76.0 Atrial fibrillation 4943 6004 I48.91 Chronic rhinitis 5873469 6 J31.0 Chronic ul cerative colitis 658956758 K51.90 Essential hypertension 29141223 I10 [id number] Jeanette Hardy MD [facility] [place] [facility] [address] [facility], [facility] [address] [place] [address] 07/27/2023 12:01:15 07/27/2023 13:52:08 Pain of ear 427384340 H92.01 [id number] Jeanette Hardy MD [facility] [place] [address] [place] [address] [place] [address] 10/30/2023 11:01:58 10/30/2023 12:00:02 Atrial fibrillation 73705726 I48.91 Chronic ul cerative colitis 774416562 K51.90 Essential hypertension 94319173 I10 Chronic rhinitis 4698868 6 J31.0 Health Concerns Section Related Observation LastModified by Organization Detai ls LastModified Time None Recorded Concern Status LastModified by Organization Details LastModified Time None Recorded Advance Directives Directive N: Payers Encounter Date Sequence Insurance Name Policy Number Policy Gomez Covered Member ID Gomez Member ID Guarantor Name 02/19/2023 1 [place] Anny A Burdge [id number] Anny A Burdge 02/19/2023 2 Soum INS[employer]ANCE [employer] (MEDICARE SUPPLEMENT) Anny Burdge [id number] Anny A Burdge 05/29/2023 1 [place] Anny A Burdge [id number] Anny A Burdge 05/29/2023 2 [employer] (MEDICARE SUPPLEMENT) Anny Burdge [id number] Anny A Burdge 07/27/2023 1 [place] Anny A Burdge [id number] Anny A Burdge 07/27/2023 2 [employer] INS[employer] (MEDICARE SUPPLEMENT) Anny Burdge [id number] Anny A Burdge 10/30/2023 1 [place] Anny A Burdge [id number] Anny A Burdge 10/30/2023 2 [employer] INS[employer] (MEDICARE SUPPLEMENT) Anny Burdge [id number] Anny A Burdge Notes Date Note Type Note Provider Name and Address Organization Details Recorded Time 02/19/2023 text/html right earache no decrease in hearing Jeanette Hardy MD [address], [place], [address], [employer] [facility] [employer] 02/25/2023 12:11:00 05/29/2023 text/html dermatitis worki ng out in the yd. Low vitamin-D level trying to take her medications without problems also of colitis no flare-ups had dental implants working through that. Apparently had L4-L5 compression fracture age unknown osteopenia I believe on last bone density done by her OBGYN per the patient. Hypertension no headache no dizziness Jeanette Hardy MD [address], [address], [place], [address], [employer] [facility] [employer] [facility] 05/29/2023 14:46:05 07/27/2023 text/html Ears feel full a nd painful and she has a little bit vertiginous Jeanette Hardy MD [address], [place], [address], [facility] [employer] [facility] [employer] [facility] 07/28/2023 13:20:50 10/30/2023 text/html AFib no palpitations ulcer colitis no abdominal pain hypertension no headache no dizziness chronic rhinitis struggling through that allergies and she is going to see the nut threader tomorrow for some testing Jeanette Hardy MD [address], [place], [address], [employer] [facility] [employer] [facility] 10/30/2023 22:24:20 OBGyn Episode No OBEpisode recorded.
--- OUTSIDE RECORDS SUMMARY | 2024-11-13 11:05 | XMS_ITS | Encounter Summary ---
Author Organization [facility] Address [address] [place] [address] Care Team Providers Care Sprinkler Fitter Name Role Phone Narinder Lozano DO Primary Care Provider Reason for Visit * Reason Comments Medication Refill Encounter Details Date Type Department Care Team (Late st Contact Info) Description 12/25/2016 Refill [facility] GASTROENTEROLOGY [address] [address] Ramon Vasquez MD [address] [place] [address] [place] [address] Social History Tobacco Use Types Packs/Day Years Used Date Smoking Tobacco: Never Smokeless Tobacco: Never Alcohol Use Standard Drinks/Week Comments Yes 0 (1 standard drink = 0.6 oz pur e alcohol) Comments Unknown Sex and Gender Information Value Date Recorded Sex Assigned at Not on file Legal Sex Female 5:03 AM SOFTWARE INTEGRATION DEVELOPER Gender Identity Not on file Sexual Orientation Not on file documented as of this encounter Plan of Treatment Not on file documented as of this encounter Visit Diagnoses Not on filedocumented in this encounter Care Teams Sprinkler Fitter Relationship Specialty Start Date End Date Narinder Lozano DO PCP - General Internal Medicine 09/04/16 documented as of this encounter
--- OUTSIDE RECORDS SUMMARY | 2024-11-13 11:05 | XMS_ITS | Encounter Summary ---
Author Organization [facility] Address [address] [place] [address] Care Team Providers Care Lathe Machinist Name Role Phone Narinder Lozano DO Primary Care Provider Reason for Visit * Reason Comments Medication Refill Encounter Details Date Type Department Care Team (Late st Contact Info) Description 08/03/2017 Refill [facility] GASTROENTEROLOGY [address] [address] Ramon Vasquez MD [address] [place] [address] [place] [address] Social History Tobacco Use Types Packs/Day Years Used Date Smoking Tobacco: Never Smokeless Tobacco: Never Alcohol Use Standard Drinks/Week Comments Yes 0 (1 standard drink = 0.6 oz pur e alcohol) Comments Unknown Sex and Gender Information Value Date Recorded Sex Assigned at Not on file Legal Sex Female 5:03 AM DIRECT CHILL CASTER Gender Identity Not on file Sexual Orientation Not on file documented as of this encounter Plan of Treatment Not on file documented as of this encounter Visit Diagnoses Not on filedocumented in this encounter Care Teams Lathe Machinist Relationship Specialty Start Date End Date Narinder Lozano DO PCP - General Internal Medicine 09/04/16 documented as of this encounter
--- OUTSIDE RECORDS SUMMARY | 2024-11-13 11:05 | XMS_ITS | Clinical Summary ---
Author Organization [facility] Address [address] [place] [address] Care Team Providers Care Pickle Solution Maker Name Role Phone Narinder Lozano DO Primary Care Provider Allergies Active Allergy Reactions Criticality Noted Date Comments Codeine Nausea and Vomiting Low 08/07/2014 Sulfa (Sulfonamide Antibiotics) Rash Low 07/22 Medications metoprolol succinate (TOPROL XL) 50 mg Extended Release 24 hour tablet take 1 tablet (50MG) by ORAL route every day 06/29/20 10 Active pantoprazole (PROTONIX) 40 mg Tablet, Delayed Release (E.C.) 1 po qd 06/28/20 10 Active polyethylene glycol 3350 (MIRALAX) 17 gram/dose PowderIndicatio ns:Ulcerative colitis, with rectal bleeding (CMS/HCC) Dissolve 255 gm in 64 ounces of Gatorade or Crystal Light and drink an 8 oz glass every 30 minutes until finished. 255 Gram 0 08/07/20 14 Active CANASA 1,000 mg Suppository INSERT ONE SUPPOSITORY RECTALLY AT BEDTIME 30 Suppository 5 07/13/20 15 Active LIALDA 1.2 gram Tablet, Delayed Release (E.C.) TAKE ONE TABLET TWICE DAILY. 60 Tablet 2 03/29/20 17 Active Active Problems No known active problems Family History Medical History Relation Name Comments Heart Disease Father Hypertension Mother Relation Name Status Comments Father Mother Social History Tobacco Use Types Packs/Day Years Used Date Smoking Tobacco: Never Smokeless Tobacco: Never Alcohol Use Standard Drinks/Week Comments Yes 0 (1 standard drink = 0.6 oz pur e alcohol) Comments Unknown Sex and Gender Information Value Date Recorded Sex Assigned at Not on file Legal Sex Female 5:03 AM ESTIMATE CLERK Gender Identity Not on file Sexual Orientation Not on file Last Filed Vital Signs Vital Sign Reading Time Taken Comments Blood Pressure 158/80 09/04/2016 3:44 PM ESTIMATE CLERK Pulse - - Temperature - - Respiratory Rate - - Oxygen Saturation - - Inhaled Oxygen Concentration - - Weight 69.5 kg (153 lb 3.2 oz) 09/04/2016 3:44 P M ESTIMATE CLERK Height 162.6 cm (5' 4 ) 09/04/2016 3:44 PM ESTIMATE CLERK Body Mass Index 26.3 09/04/2016 3:44 PM ESTIMATE CLERK Plan of Treatment Health Maintenance Due Date Last Done Comments DTAP/TDAP/TD VACCINES (1 - Tdap) 1973 BREAST CANCER SCREENING 1994 COLORECTAL SCREENING 1999 Colorectal Cancer Screening 1999 FIT-DNA Q 3 years 1999 FIT/FOBT Q 1 year 1999 Flex Sig/CT Colonography Q 5 years 1999 PNEUMOCOCCAL VACCINE 65+ YEARS (1 of 1 - PCV) 05/06/20 04 ZOSTER VACCINE (1 of 2) 2004 OSTEOPOROSIS SCREENING 2019 INFLUENZA VACCINE (#1) 2024 RSV VACCINE (60+ or ) (1 - 1-dose 75+ series) 2029 Insurance [facility] [id number] Care Teams Pickle Solution Maker Relationship Specialty Start Date End Date Narinder Lozano DO PCP - General Internal Medicine 09/04/16
--- OUTSIDE RECORDS SUMMARY | 2024-11-13 11:05 | XMS_ITS | Clinical Summary ---
Author Organization [facility] [address] Address [address] [place] [address] Care Team Providers Care Ground Systems Engineer Name Role Phone Tam Hardy MD Primary Care Provider [phone] Allergies Active Allergy Reactions Criticality Noted Date [...] 05/23 S/P ablation of atrial flutter 06/15/2021 manager terminal current use of antiarrhythmic drug 04/2020 Assessment [...] 1:37 PM CDT): The patient has a KDP6VW7-DXTo score of 3 (annualized risk of stroke [...] placement). Assessment & Plan (09/16/2019 4:11 PM STAMPS OR COINS SALESPERSON): The patient has a TKE8PV6-INZh score of 2 (annualized risk of stroke [...] changes to management The patient has a QMW6DO3-OWEn score of 3. She is unable to [...] ECG. Assessment & Plan (09/16/2019 4:10 PM STAMPS OR COINS SALESPERSON): The patient has symptomatic paroxysmal atrial fibrillation/atrial [...] Arthropathy of hand 08/05/2014 Thumb pain 08/05/2014 Encounters Date Type Department Care Team Description 10/10/2024 2:00 PM STAMPS OR COINS SALESPERSON Office Visit [facility] Cardiology [address] [place] [address] Talib Sun MD Paroxysmal atrial fibrillation (CMS/HCC) (HCC) (Primary Dx); Pulmonary hypertension (HCC); S/P ablation of atrial flutter; Status post ablation of atrial fibrillation; Palpitations; Benign hypertension 10/10/2024 Orders Only [facility] Medical [facility] Cardiology [address] [place] [address] ProviderViral MD from Last 3 Months Surgical History Surgery Date Site/Laterality Comments CHOLECYSTECTOMY Cholecystectomy APPENDECTOMY JOINT REPLACEMENT Medical History Medical History Date Comments Hypertension Hypertension Hx Other Medical History of tota l knee replacement of both knees Arrhythmia Family History Medical History Relation Name Comments Cancer Brother Danie Ansari Heart disease Father Janes Ansari Heart disease ; Cause of : Heart disease Depression Mother Radha Ansari Other Mother Radha Ansari Natural Cause s; Heart disease Other 1 Family history of Cardiovascular disease; Hypertension Other 2 Family history of Hypertension; Relation Name Status Comments Brother Danie Ansari Father Janes Ansari Mother Radha Ansari Other 1 Other 2 Social History Tobacco Use Types Packs/Day Years Used Date Smoking Tobacco: Never Smokeless Tobacco: Never Tobacco Cessation:Counseling Given: Not Answered Alcohol Use Standard Drinks/Week Comments Yes 2 (1 standard drink = 0.6 oz pur e alcohol) Comments Unknown Sex and Gender Information Value Date Recorded Sex Assigned at Not on file Legal Sex Female 11:40 PM STAMPS OR COINS SALESPERSON Gender Identity Not on file Sexual Orientation Not on file Obstetrics History Last Filed Vital Signs Vital Sign Reading Time Taken Comments Blood Pressure 122/74 10/10/2024 1:53 PM STAMPS OR COINS SALESPERSON Pulse 88 10/10/2024 1:53 PM STAMPS OR COINS SALESPERSON Temperature 37 ??C (98.6 ??F) 02/15/2021 9:02 AM CDT Respiratory Rate 18 01/13/2022 10:51 AM CDT Oxygen Saturation 98% 10/10/2024 1:53 PM STAMPS OR COINS SALESPERSON Inhaled Oxygen Concentration - - Weight 62.6 kg (138 lb) 10/10/2024 1:53 PM STAMPS OR COINS SALESPERSON Height 160 cm (5' 3 ) 10/10/2024 1:53 PM STAMPS OR COINS SALESPERSON Body Mass Index 24.45 10/10/2024 1:53 PM STAMPS OR COINS SALESPERSON Plan of Treatment Health Maintenance Due Date Last Done Comments Breast Cancer Screening-Mammogram 1954 Colon Cancer Screening-Colonoscopy 1954 Depression Screening 1954 Hepatitis C Screening 1954 DTaP/Tdap/Td Vaccine (1 - Tdap) 1965 Hepatitis B Screening 1972 Zoster Vaccine (1 of 2) 2004 Pneumococcal vaccine 65+ (1 of 1 - PCV) 2019 Well Visit 65+ 2019 Fall Risk Assessment 02/15/2022 02/15/2021 Osteoporosis Screening-Bone Density Scan 06/09/2024 06/09/2022 Influenza Vaccine (#1) 2024 Medical Devices Implanted Type Area Scrap Sorter Device Identifier Shelf Expiration Date Model / Serial / Lot Gen[employer] [id number] System 6-12fr Mvp Venous Closure Vascade - [id number] - [id number] Implanted:Qty: 1 on 02/14/2021 by Ulises Dubose MD at [facility] [employer] 12/13/2022 [id number]-[id number] [id number] / [id number] / [id number] [employer] [id number] System 6-12fr Mvp Venous Closure Vascade - [id number] - [id number] Implanted:Qty: 1 on 02/14/2021 by Ulises Dubose MD at [facility] [employer] 12/13/2022 [id number]-[id number] 0U / [id number] / [id number] [employer] [id number] System 6-12fr Mvp Venous Closure Vascade - [id number] - [id number] Implanted:Qty: 1 on 02/14/2021 by Ulises Dubose MD at [facility] [employer] 12/13/2022 800-612C-1 0U / [id number] [id number] / [id number] [id number] [employer] [id number] Vascade 6/7fr Bioabsorbable Vascular System Compression [employer] - [id number] - [id number] Implanted:Qty: 1 on 02/14/2021 by Ulises Dubose MD at [facility] [employer] 11/29/2022 [id number] / [id number] / [id number] Procedures Procedure Name Priority Date/Time Associated Diagnosis Comments LIPID PANEL Routine 09/24/2024 3:08 PM STAMPS OR COINS SALESPERSON from Last 3 Months Results * Lipid panel (09/24/2024 3:08 PM STAMPS OR COINS SALESPERSON) SCRIBED Cholesterol, Total 158 <200 [facility] S[facility] HDL 50 >40 [facility] LDL 93 <100 [facility] S[facility] Triglycerides 65 <150 [facility] Blood us Historical Provider LAB BLOOD ORDERABLES Edit ed Result - Final [facility] from Last 3 Months Insurance MEDICARE [facility] MEDICARE [employer] MEDICARE [employer] [facility] CHOICE PLUS [place] [id number] Advance Directives For more information, please contact: [phone] * Full Code (Latest Code Status on File) Date Activated Date Inactivated Comments 02/14/2021 6:50 PM 02/15/2021 3:17 PM Care Teams Ground Systems Engineer Relationship Specialty Start Date End Date Tam Hardy MD PCP - General Internal Medicine 04/27/17
--- OUTSIDE RECORDS SUMMARY | 2024-11-13 11:05 | XMS_ITS | Encounter Summary ---
Author Organization [facility] Address [address] [place] [address] Care Team Providers Care Criminal Justice Teacher Name Role Phone Narinder Lozano DO Primary Care Provider Reason for Visit * Reason Comments Medication Refill Encounter Details Date Type Department Care Team (Late st Contact Info) Description 10/26/2016 Refill [facility] GASTROENTEROLOGY [address] [address] Ramon Vasquez MD [address] [place] [address] [place] [address] Social History Tobacco Use Types Packs/Day Years Used Date Smoking Tobacco: Never Smokeless Tobacco: Never Alcohol Use Standard Drinks/Week Comments Yes 0 (1 standard drink = 0.6 oz pur e alcohol) Comments Unknown Sex and Gender Information Value Date Recorded Sex Assigned at Not on file Legal Sex Female 5:03 AM THREAD SINGER Gender Identity Not on file Sexual Orientation Not on file documented as of this encounter Plan of Treatment Not on file documented as of this encounter Visit Diagnoses Not on filedocumented in this encounter Care Teams Criminal Justice Teacher Relationship Specialty Start Date End Date Narinder Lozano DO PCP - General Internal Medicine 09/04/16 documented as of this encounter
--- OUTSIDE RECORDS SUMMARY | 2024-11-13 11:05 | XMS_ITS | Clinical Summary ---
Author Organization [facility] [place] Address [address] [place] [address] Care Team Providers Care Software Engineer Advisor Name Role Phone Tam Hardy MD Primary Care Provider [phone] Source Comments [facility],non-owned Affiliates and Associated Physician Practices is amultiple site organization consisting of ambulatory clinics and hospital sitesin [place], [place], [place] and [place]. This disclosure is being madepursuant to the Care Everywhere program and may not contain all information available regarding this patient. Last updated 18.[facility] Allergies No known active allergies Medications * Be aware that medications may not be up to date on this document. Alwaysverify current medications with the patient. Medication Sig Dispensed Refills Start Date End Date Status mesalamine EC (LIALDA) 1.2 GM tablet Take 2.4 g by mouth daily with breakfast. Active fexofenadine-pseudoep hedrine ER 12hr (SHARON-D) 60-120 MG tablet Take 1 Tab by mouth 2 times daily. 60 Tab 5 06/06/2010 Active azelastine (ASTELIN) 137 MCG/SPRAY nasal sprayIndications:Rhin itis [place] 1 [place] into each nostril 2 times daily. 1 Inhaler 5 08/31/2010 Active metoprolol succinate XL 24hr (TOPROL XL) 50 MG tablet Take 1 Tab by mouth daily. 30 Tab prn 12/15/2010 Active Active Problems Problem Noted Date Diagnosed Date Arthritis 03/03/2010 Ulcerative colitis 03/03/2010 Depression 03/03/2010 HPV (human papilloma virus) anogenital infection 03/03/2010 Rhinitis 03/03/2010 Social History Tobacco Use Types Packs/Day Years Used Date Smoking Tobacco: Never Alcohol Use Standard Drinks/Week Comments No 0 (1 standard drink = 0.6 oz pur e alcohol) Sex and Gender Information Value Date Recorded Sex Assigned at Not on file Gender Identity Not on file Sexual Orientation Not on file Last Filed Vital Signs Vital Sign Reading Time Taken Comments Blood Pressure 130/70 03/01/2011 10:56 AM CDT Pulse 66 03/01/2011 10:56 AM CDT Temperature - - Respiratory Rate 12 03/01/2011 10:56 AM CDT Oxygen Saturation - - Inhaled Oxygen Concentration - - Weight 69.9 kg (154 lb) 03/01/2011 10:56 AM CDT Height 165.1 cm (5' 5 ) 03/01/2011 10:56 AM CDT Body Mass Index 25.63 03/01/2011 10:56 AM CDT Plan of Treatment Health Maintenance Due Date Last Done Comments BONE DENSITY TESTING 1954 COLOGUARD (AGES 45-75) - COL ON CA SCREENING 1954 CT COLONOGRAPHY - COLON CA SCREENING 1954 FIT - COLON CA SCREENING 1954 FLEX SIG - COLON CA SCREENING 1955 MAMMOGRAM 1955 MEDICARE AWV ? 12 MONTHS 1954 DTAP/TDAP/TD VACCINES (1 - Tdap) 1973 PNEUMOCOCCAL VACCINE 50+ (1 of 1 - PCV) 2004 ZOSTER VACCINE (1 of 2) 2004 LIPID TESTING 03/30/2016 03/30/2011, 10/01/2009, 09/09/2008 COLON MONITORING 12/01/2019 12/01/2009 COLONOSCOPY - COLON CA SCREENING 12/01/2019 12/01/2009 Colorectal Cancer Screening 12/01/2019 COVID-19 VACCINE ( - 2023-2 5 season) 2024 INFLUENZA VACCINE (#1) 2024 DEPRESSION SCREENING 10/22/2024 Respiratory Syncytial Virus (RSV) Vaccine Pt: or over 60 yrs (1 - 1-dose 75+ series) 2029 HEPATITIS C SCREENING Completed 09/09/2008 HEPATITIS B VACCINE Aged Out No longe r eligible based on patient's age to complete this topic HIB VACCINE Aged Out No longer eligi ble based on patient's age to complete this topic HPV VACCINE Aged Out No longer eligi ble based on patient's age to complete this topic MENINGOCOCCAL (Group B) VACCINE Aged Out No longer eligible b ased on patient's age to complete this topic MENINGOCOCCAL VACCINE Aged Out No shanell telma eligible based on patient's age to complete this topic Procedures Procedure Name Priority Date/Time Associated Diagnosis Comments LIPID PROFILE Routine 03/30/2011 11:20 AM CDT HTN (hypertension) ENDOSCOPY, COLON, SCREENING Routine 12/01/2009 HEPATITIS SCREEN ACUTE 09/09/2008 8:39 AM FUSE CUTTER from Last 3 Months or Most Recently Relevant to Health Maintenance Results * (ABNORMAL) LIPID PROFILE (03/30/2011 11:20 AM CDT) Cholesterol 146 125 - 200 mg/dL [facility] Comment: Test Performed at: [facility] [id number] [place], [place] ??[phone] SUZE HUFFMAN DO,MPH HDL Cholesterol 40(L) > OR = 46 mg/dL [facility] Triglycerides 124 <150 mg/dL [facility] LDL Calculated 81 <130 mg/dL (calc) [facility] Comment: Desirable range <100 mg/dL for patients with CHD or diabetes and <70 mg/dL for diabetic patients with known heart disease. CHOL/HDLC RATIO 3.7 < OR = 5.0 (calc) [facility] BLOOD SPECIMEN / Unknown 03/30/2011 11:20 AM CDT 03/30/2011 10:45 PM CDT Drew Dickens MD [facility] Organization Address City/State/ZIP Co de Phone Number [facility] [address] [place] [address] * ENDOSCOPY, COLON, SCREENING (12/01/2009) Drew Dickens MD GI PROCEDURE ORDERAB LES * HEPATITIS SCREEN ACUTE (09/09/2008 8:39 AM FUSE CUTTER) Hepatitis A Virus Antibody IgM NON-REACT FLORIN NON - REACTIVE [facility] Comment: Test Performed at: [facility] [id number] [facility] [place] ??[phone] SUZE ARROYO MD Hepatitis B Virus Surface Antigen NON-REACT FLORIN NON - REACTIVE [facility] Hepatitis B Core Virus Antibody IgM NON-REACT FLORIN NON - REACTIVE [facility] Hepatitis C Antibody NON-REACT FLORIN NON - REACTIVE [facility] Signal to Cut-Off 0.25 <1.00 [facility] 09/09/2008 8:39 AM FUSE CUTTER 09/09/2008 5:29 PM FUSE CUTTER Drew Dickens MD LAB - CHEMISTRY LIZZY JAMES [facility] Organization Address City/State/ZIP Co de Phone Number [facility] [address] [place] [address] from Last 3 Months or Most Recently Relevant to Health Maintenance Care Teams Software Engineer Advisor Relationship Specialty Start Date End Date Tam Hardy MD PCP - General 07/09/21
--- OUTSIDE RECORDS SUMMARY | 2024-11-13 11:05 | XMS_ITS | Encounter Summary ---
Author Organization [facility] Address [address] [place] [address] Care Team Providers Care Customizer Name Role Phone Narinder Lozano DO Primary Care Provider Encounter Details Date Type Department Care Team (Late st Contact Info) Description 06/02/2004 Outpatient Historical [facility] (Adt Cardiology[facility]) [address] [place] [address] [place] [address] [address] [place] [address] Social History Tobacco Use Types Packs/Day Years Used Date Smoking Tobacco: Never Assessed Comments Unknown Sex and Gender Information Value Date Recorded Sex Assigned at Not on file Legal Sex Female 5:03 AM MACHINE JOINT CUTTER Gender Identity Not on file Sexual Orientation Not on file documented as of this encounter Plan of Treatment Not on file documented as of this encounter Visit Diagnoses Not on filedocumented in this encounter Care Teams Customizer Relationship Specialty Start Date End Date Narinder Lozano DO PCP - General Internal Medicine 09/04/16 documented as of this encounter
--- OUTSIDE RECORDS SUMMARY | 2024-11-13 11:05 | XMS_ITS | Patient Health Summary ---
Author Organization [facility] Address [address] [place] [address] Care Team Providers Care Stitching Department Supervisor Name Role Phone Tam Hardy MD Primary Care Provider [phone] Note from [facility],non-owned Affiliates and Associated Physician Practices is amultiple site organization consisting of ambulatory clinics and hospital sitesin [place], [place], [place] and [place]. This disclosure is being madepursuant to the Care Everywhere program and may not contain all information available regarding this patient. Last updated 18.[facility] Allergies No known active allergies Medications * Be aware that medications may not be up to date on this document. Alwaysverify current medications with the patient. * mesalamine EC (LIALDA) 1.2 GM tablet Take 2.4 g by mouth daily with breakfast. * fexofenadine-pseudoephedrine ER 12hr (SHARNO-D) 60-120 MG tablet(Started 06/06/2010) Take 1 Tab by mouth 2 times daily. 5 refills left * azelastine (ASTELIN) 137 MCG/SPRAY nasal spray(Started 08/31/2010) [place] 1 [place] into each nostril 2 times daily. 5 refills left * metoprolol succinate XL 24hr (TOPROL XL) 50 MG tablet(Started 12/15/2010) Take 1 Tab by mouth daily. Active Problems Problem Noted Date Diagnosed Date [...] Mass Index 25.63 03/01/2011 10:56 AM CDT Procedures * VITAMIN D 25-HYDROXY(Performed 03/30/2011) Performed for Heel pain * TSH(Performed 03/30/2011) Performed for HTN (hypertension) * LIPID PROFILE(Performed 03/30/2011) Performed for HTN (hypertension) * COMPREHENSIVE METABOLIC PANEL(Performed 03/30/2011) Performed for HTN (hypertension) * CBC W AUTO DIFFERENTIAL(Performed 03/30/2011) Performed for Ulcerative colitis * PATHOLOGY/CYTOLOGY REPORT ORDER(Performed 12/02/2009) * ENDOSCOPY, COLON, SCREENING(Performed 12/01/2009) * CBC W AUTO DIFFERENTIAL(Performed 10/01/2009) * COMPREHENSIVE METABOLIC PANEL(Performed 10/01/2009) * LIPID PROFILE(Performed 10/01/2009) * RPR QUANTITATIVE(Performed 09/09/2008) * VITAMIN B12 FOLATE PANEL(Performed 09/09/2008) * RHEUMATOID FACTOR BLOOD QUANTITATIVE(Performed 09/09/2008) * SERA BLOOD SCREEN W/REFLEX TITER(Performed 09/09/2008) * CBC W AUTO DIFFERENTIAL(Performed 09/09/2008) * ERYTHROCYTE SEDIMENTATION RATE(Performed 09/09/2008) * COMPREHENSIVE METABOLIC PANEL(Performed 09/09/2008) * IRON + TIBC PANEL(Performed 09/09/2008) * HEPATITIS SCREEN ACUTE(Performed 09/09/2008) * THYROID PANEL W TSH (TSH,T4,T3 UPTAKE,FTI)(Performed 09/09/2008) * LIPID PROFILE(Performed 09/09/2008) * GROSS + MICRO EXAM(Performed 07/12/2006) * GROSS + MICRO EXAM(Performed 01/10/2006) * GROSS + MICRO EXAM(Performed 12/23/2004) * GROSS + MICRO EXAM(Performed 10/03/2002) Results * VITAMIN D 25-HYDROXY (03/30/2011 11:20 AM CDT) Pathologist [facility] Vitamin D, 25 Hydroxy 54 30 - 100 ng/mL [facility] Vitamin D, 25 Hydroxy D2 38 ng/mL [facility] Vitamin D, 25 Hydroxy D3 16 ng/mL [facility] Comment: 25-OHD3 indicates both endogenous production and supplementation. 25-OHD2 is an indicator of exogenous sources such as diet or supplementation. Therapy is based on measurement of Total 25-OHD, with levels <20 ng/mL indicative of Vitamin D deficiency while levels between 20 ng/mL and 30 ng/mL suggest insufficiency. Optimal levels are >/=30 ng/mL. Test Performed at: [facility] [employer] [place] [address] [place] [address] ??[phone] PENG MIRZA MD,FCAP BLOOD SPECIMEN / Unknown 03/30/2011 11:20 AM CDT 03/30/2011 10:45 PM CDT Drew Dickens MD LAB - CHEMISTRY LIZZY JAMES [facility] Organization Address City/State/ZIP Co de Phone Number [facility] [address] [place] [address] * CBC W AUTO DIFFERENTIAL (03/30/2011 11:20 AM CDT) Only the most recent of3 resultswithin the time period is included. Pathologist [facility] White Blood Cell Count 4.6 3.8 - 10.8 Thousand/u L [facility] RBC 4.26 3.80 - 5.10 Million/uL [facility] Hemoglobin 13.1 11.7 - 15.5 g/dL [facility] Hematocrit 38.3 35.0 - 45.0 % [facility] MCV 90.0 80.0 - 100.0 fL [facility] MCH 30.8 27.0 - 33.0 pg [facility] MCHC 34.2 32.0 - 36.0 g/dL [facility] RDW 13.7 11.0 - 15.0 % [facility] Platelet Count 233 140 - 400 Thousand/u L [facility] Neutrophil Absolute 2502 1500 - 7800 cells/uL [facility] Lymphocytes Absolute 1477 850 - 3900 cells/uL [facility] Absolute Monocytes 225 200 - 950 cells/uL [facility] Eosinophils Absolute 354 15 - 500 cells/uL [facility] Basophils Absolute 41 0 - 200 cells/uL [facility] Granulocytes % 54.4 % [facility] Lymphocytes % 32.1 % [facility] Monocytes % 4.9 % [facility] Eosinophils % 7.7 % [facility] Basophils % 0.9 % [facility] Comment: Test Performed at: [facility] [place], [place] ??[phone] DENTON HUFFMAN DO,MPH BLOOD SPECIMEN / Unknown 03/30/2011 11:20 AM CDT 03/30/2011 10:45 PM CDT Drew Dickens MD LAB - HEMATOLOGY ORD ERABLES [facility] [address] [place] [address] * COMPREHENSIVE METABOLIC PANEL (03/30/2011 11:20 AM CDT) Only the most recent of3 resultswithin the time period is included. Glucose 84 65 - 99 mg/dL [facility] Comment: ? Fasting reference interval BUN 14 7 - 25 mg/dL [facility] Creatinine 0.74 0.60 - 1.10 mg/dL [facility] eGFR by MDRD 91 > OR = 60 mL/min/1. 73m2 [facility] eGFR by MDRD 105 > OR = 60 mL/min/1. 73m2 [facility] BUN/Creatinine Ratio NOT APPLICABLE 6 - 22 (calc) [facility] Sodium 140 135 - 146 mmol/L [facility] Potassium 4.1 3.5 - 5.3 mmol/L [facility] Chloride 104 98 - 110 mmol/L [facility] CO2 25 21 - 33 mmol/L [facility] Calcium 9.1 8.6 - 10.2 mg/dL [facility] Protein Total 7.6 6.2 - 8.3 g/dL [facility] Albumin 4.4 3.6 - 5.1 g/dL [facility] Globulin Total 3.2 2.2 - 3.9 g/dL (calc) [facility] Albumin/Globuli n Ratio 1.4 1.0 - 2.1 (calc) [facility] Bilirubin Total 0.7 0.2 - 1.2 mg/dL [facility] Alkaline Phosphatase 98 33 - 130 U/L [facility] AST 20 10 - 35 U/L [facility] ALT 14 6 - 40 U/L [facility] Comment: Test Performed at: [facility] [address] ??[phone] DENTON HUFFMAN DO,MPH BLOOD SPECIMEN / Unknown 03/30/2011 11:20 AM CDT 03/30/2011 10:45 PM CDT Drew Dickens MD LAB - [facility] Performing Organization Address [facility] Co de Phone Number [address] [address] * TSH (03/30/2011 11:20 AM CDT) TSH 1.64 0.40 - 4.50 mIU/L [facility] Comment: Test Performed at: [facility] [address] ??[phone] DENTON HUFFMAN DO,MPH BLOOD SPECIMEN / Unknown 03/30/2011 11:20 AM CDT 03/30/2011 10:45 PM CDT Drew Dickens MD LAB - CHEMISTRY ORDJavid JAMES Performing Organization Address [facility] Co de Phone Number [address] [address] * (ABNORMAL) LIPID PROFILE (03/30/2011 11:20 AM CDT) Only the most recent of3 resultswithin the time period is included. Cholesterol 146 125 - 200 mg/dL [facility] Comment: Test Performed at: [facility] ??[phone] DENTON HUFFMAN DO,MPH HDL Cholesterol 40(L) > OR [...] CDT Drew Dickens MD LAB - CHEMISTRY LIZZY JAMES Performing Organization Address [facility]/ZIP Co de Phone Number [facility] [address] [place] [address] * PATHOLOGY/CYTOLOGY REPORT ORDER (12/02/2009) Drew Dickens MD LAB - PATHOLOGY/CYTO LOGY ORDERABLES * ENDOSCOPY, COLON, SCREENING (12/01/2009) Drew Dickens MD GI PROCEDURE ORDERAB LES * THYROID PANEL W TSH (09/09/2008 8:39 AM STOKER MECHANIC) T3 Uptake 28 22 - 35 % [facility] T4 Total 11.8 4.5 - 12.5 mcg/dL [facility] Thyroxine Free Index 3.3 1.4 - 3.8 [facility] Quest SEE NOTE [facility] Comment: TSH W/REFLEX TO FREE T4 (TEST CODE 96906) IS CONSIDERED A STANDARD OF PATIENT CARE FOR ASSESSING THYROID DISEASE BY THE [employer] AND THE ENDOCRINE SOCIETY.--AMA, CPT-4 CODE BOOK, 2004. Test Performed at: [facility], [place] ??[phone] DENTON ARROYO MD TSH 3.85 mIU/L [facility] Comment: REFERENCE RANGE: > OR = 20 YEARS: 0.40-4.50 ? RANGES FIRST TRIMESTER ?0.20-4.70 SECOND TRIMESTER ?? 0.30-4.10 THIRD TRIMESTER ?0.40-2.70 09/09/2008 8:39 AM STOKER MECHANIC 09/09/2008 5:29 PM STOKER MECHANIC Drew Dickens MD LAB - CHEMISTRY LIZZY JAMES Performing Organization Address [facility] Co de Phone Number [facility] [address] [place] [address] * RPR QUANTITATIVE (09/09/2008 8:39 AM STOKER MECHANIC) RPR (Monitor) W/Reflex Titer NON-REACT FLORIN NON - REACTIVE [facility] Comment: Test Performed at: [facility] ??[phone] DENTON ARROYO MD 09/09/2008 8:39 AM STOKER MECHANIC 09/09/2008 5:29 PM STOKER MECHANIC Drew Dickens MD LAB - CHEMISTRY LIZZY JAMES Performing Organization Address [facility] Co de Phone Number [facility] [phone] [place] [address] * RHEUMATOID FACTOR BLOOD QUANTITATIVE (09/09/2008 8:39 AM STOKER MECHANIC) Rheumatoid Factor 3 <14 IU/mL [facility] Comment: Test Performed at: [facility] [place] [address] [place], [place] ??[phone] DENTON ARROYO MD 09/09/2008 8:39 AM STOKER MECHANIC 09/09/2008 5:29 PM STOKER MECHANIC Drew Dickens MD LAB - CHEMISTRY LIZZY JAMES Performing Organization Address [facility] de Phone Number [facility] [address] [place] [address] * SEAR BLOOD SCREEN (09/09/2008 8:39 AM STOKER MECHANIC) ANAchoice [TM] Screen NEGATIVE NEGATIVE [facility] Comment: Test Performed at: [facility] [place] [address] [facility] [place] [place] ??[address] DENTON ARROYO MD 09/09/2008 8:39 AM STOKER MECHANIC 09/09/2008 5:29 PM STOKER MECHANIC Drew Dickens MD LAB - CHEMISTRY LIZZY JAMES Performing Organization Address [facility] de Phone Number [facility] [address] [place] [address] * SED RATE WESTERGREN AUTO (09/09/2008 8:39 AM STOKER MECHANIC) Erythrocyte Sedimentation Rate Westergren 9 < OR = 30 mm/h [facility] Comment: Test Performed at: [facility] [place] [address] [facility] [place] [place] ??[phone] DENTON ARROYO MD 09/09/2008 8:39 AM STOKER MECHANIC 09/09/2008 5:29 PM STOKER MECHANIC Drew Dickens MD LAB - HEMATOLOGY ORD ERABLES Performing Organization Address [facility] de Phone Number [facility] [address] [place] [address] * IRON + TIBC PANEL (09/09/2008 8:39 AM STOKER MECHANIC) Iron 76 40 - 160 mcg/dL [facility] TIBC 410 250 - 450 mcg/dL [facility] % Saturation 19 15 - 50 % (calc) [facility] Comment: Test Performed at: [facility] [place] [address] [place], [place] ??[phone] DENTON ARROYO MD 09/09/2008 8:39 AM STOKER MECHANIC 09/09/2008 5:29 PM STOKER MECHANIC Drew Dickens MD LAB - CHEMISTRY LIZZY JAMES Performing Organization Address [facility] de Phone Number [facility] [address] [place] [address] * VITAMIN B12 FOLATE PANEL (09/09/2008 8:39 AM STOKER MECHANIC) Vitamin B12 725 200 - 1100 pg/mL [facility] Folate >24.0 ng/mL [facility] Comment: ? REFERENCE RANGE: ? LOW: ? < 3.4 ? BORDERLINE: ??3.4-5.4 ? NORMAL: ?> 5.4 Test Performed at: [facility] [address] [place], [place] ??[phone] DENTON ARROYO MD 09/09/2008 8:39 AM STOKER MECHANIC 09/09/2008 5:29 PM STOKER MECHANIC Drew Dickens MD LAB - CHEMISTRY LIZZY JAMES Performing Organization Address [facility] de Phone Number [facility] [address] [place] [address] * HEPATITIS SCREEN ACUTE (09/09/2008 8:39 AM STOKER MECHANIC) Pathologist [facility] Hepatitis A Virus Antibody IgM NON-REACT FLORIN NON - REACTIVE [facility] Comment: Test Performed at: [facility] [address] [place] [address] ??[phone] DENTON ARROYO MD Hepatitis B Virus Surface Antigen NON-REACT FLORIN NON - REACTIVE [facility] Hepatitis B Core Virus Antibody IgM NON-REACT FLORIN NON - REACTIVE [facility] Hepatitis C Antibody NON-REACT FLORIN NON - REACTIVE [facility] Signal to Cut-Off 0.25 <1.00 [facility] 09/09/2008 8:39 AM STOKER MECHANIC 09/09/2008 5:29 PM STOKER MECHANIC Drew Dickens MD LAB - CHEMISTRY LIZZY JAMES [facility] [address] [place] [address] * GROSS + MICRO EXAM (07/12/2006 10:45 AM CDT) Only the most recent of4 resultswithin the time period is included. Pathologist [facility] Result CASE NUMBER [id number] Comment: ORDERING PHYSICIAN ??RYLAND COOLEY SPECIMEN TYPE ?Knee bone and tissu DATE OF PROCEDURE ?07/12/2006 SPECIMEN LABELED ? Tissue right knee PRE-OP DIAGNOSIS ? Right knee arthroscopyh and debridement GROSS DESCRIPTION ? GROSS DESCRIPTION The specimen is received in formalin labeled cyst right knee patient Anny Valladares, and consists of approximately 3 grams of 1-5 mm yellow- white tissue fragments. A portion submitted in a single cassette. Dictated by ? Denton Barton M.D. MICROSCOPIC DESCRIPTION The sections show multiple pieces of hyperplastic synovium with chronic inflammation and fibrosis. DIAGNOSIS Soft tissue, right knee, arthroscopic excision ? synovial hyperplasia with fibrosis and chronic inflammation Dictated by ? Denton Barton M.D. Nurse Head ? RAIZA HUMPHREY Electronically Signed By ? DENTON BARTON MISCELLANEOUS SAMPLES / Unknown 07/12/2006 10:45 AM CDT 07/12/2006 3:36 PM CDT Historical Provider LAB - PATHOLOGY/C YTOLOGY ORDERABLES Care Teams Stitching Department Supervisor Relationship Specialty Start Date End Date Tam Hardy MD PCP - General 07/09/21
--- OUTSIDE RECORDS SUMMARY | 2024-11-13 11:05 | XMS_ITS | Encounter Summary ---
Author Organization [facility] Address [address] [place] [address] Care Team Providers Care Viticulture Teacher Name Role Phone Narinder Lozano DO Primary Care Provider Encounter Details Date Type Department Care Team (Latest Contact Info) Description 06/02/2004 Outpatient Historical [facility] Ari Meza MD [address] [address] NASAL & SINUS DIS NEC (Primary Dx) Social History Tobacco Use Types Packs/Day Years Used Date Smoking Tobacco: Never Assessed Comments Unknown Sex and Gender Information Value Date Recorded Sex Assigned at Not on file Legal Sex Female 5:03 AM STORE MERCHANDISER Gender Identity Not on file Sexual Orientation Not on file documented as of this encounter Plan of Treatment Not on file documented as of this encounter Visit Diagnoses Diagnosis Nasal/sinus dis NEC- Primary Other diseases of nasal cavity and sinuses documented in this encounter Care Teams Viticulture Teacher Relationship Specialty Start Date End Date Narinder Lozano DO PCP - General Internal Medicine 09/04/16 documented as of this encounter
--- OUTSIDE RECORDS SUMMARY | 2024-11-13 11:05 | XMS_ITS | Referral Summary ---
Author Organization [facility] Address [address] [place] [address] Care Team Providers Care Sales Merchandising Specialist Name Role Phone Tam Hardy MD Primary Care Provider [phone] Source Comments [facility],non-owned Affiliates and Associated Physician Practices is amultiple site organization consisting of ambulatory clinics and hospital sitesin [place], [place], [place] and [place]. This disclosure is being madepursuant to the Care Everywhere program and may not contain all information available regarding this patient. Last updated 18.[facility] Allergies No known active allergies Medications * [...] azelastine (ASTELIN) 137 MCG/SPRAY nasal sprayIndications:Rhin itis Bella[place] 1 [place] into each nostril 2 times daily. 1 [...] 03/01/2011 10:56 AM CDT Plan of Treatment Not on file Procedures Procedure Name Priority Date/Time Associated Diagnosis Comments LIPID PROFILE Routine 03/30/2011 11:20 AM CDT HTN (hypertension) ENDOSCOPY, COLON, SCREENING Routine 12/01/2009 HEPATITIS SCREEN ACUTE 09/09/2008 8:39 AM LINES TENDER from Last 3 Months or Most Recently Relevant to Health Maintenance Results * (ABNORMAL) LIPID PROFILE (03/30/2011 11:20 AM CDT) Cholesterol 146 125 - 200 mg/dL [facility] Comment: Test Performed at: [facility] [address] [place], [place] ??[phone] SUZE HUFFMAN DO,MPH HDL Cholesterol 40(L) > [...] Dickens MD LAB - CHEMISTRY [facility] Organization Address City/State/ZIP Co de Phone Number [facility] [address] [place] [address] * ENDOSCOPY, COLON, SCREENING (12/01/2009) Drew Dickens MD GI PROCEDURE ORDERAB LES * HEPATITIS SCREEN ACUTE (09/09/2008 8:39 AM LINES TENDER) Hepatitis A Virus Antibody IgM NON-REACT FLORIN NON - REACTIVE [facility] Comment: Test Performed at: [facility] [address] [place] [address] ??[phone] SUZE ARROYO MD Hepatitis B Virus Surface Antigen NON-REACT FLORIN NON - REACTIVE [facility] Hepatitis B Core Virus Antibody IgM NON-REACT [place]OR[place] NON - REACTIVE [facility] Hepatitis C Antibody NON-REACT [place]OR[place] NON - REACTIVE [facility] Signal to Cut-Off 0.25 <1.00 [facility] 09/09/2008 8:3 9 AM LINES TENDER 09/09/2008 5:29 PM LINES TENDER Drew Dickens MD LAB - CHEMISTRY [facility] Organization Address City/State/[facility] Co de Phone Number [facility] [phone] [place] [address] from Last 3 Months or Most Recently Relevant to Health Maintenance Care Teams Sales Merchandising Specialist Relationship Specialty Start Date End Date Tam Hardy MD PCP - General 07/09/21
--- OUTSIDE RECORDS SUMMARY | 2024-11-13 11:05 | XMS_ITS | Encounter Summary ---
Author Organization [facility] Address [address] [place] [address] Care Team Providers Care Records Administrator Name Role Phone Narinder Lozano DO Primary Care Provider Reason for Visit * Reason Comments Medication Refill Encounter Details Date Type Department Care Team (Late st Contact Info) Description 03/29/2017 Refill [facility] [address] [id number] Ramon Vasquez MD [address] [place] [address] [place] [address] Social History Tobacco Use Types Packs/Day Years Used Date Smoking Tobacco: Never Smokeless Tobacco: Never Alcohol Use Standard Drinks/Week Comments Yes 0 (1 standard drink = 0.6 oz pur e alcohol) Comments Unknown Sex and Gender Information Value Date Recorded Sex Assigned at Not on file Legal Sex Female 5:03 AM STOCK CHECKERER Gender Identity Not on file Sexual Orientation Not on file documented as of this encounter Plan of Treatment Not on file documented as of this encounter Visit Diagnoses Not on filedocumented in this encounter Care Teams Records Administrator Relationship Specialty Start Date End Date Narinder Lozano DO PCP - General Internal Medicine 09/04/16 documented as of this encounter
--- OUTSIDE RECORDS SUMMARY | 2024-11-13 11:06 | XMS_ITS | Data Portability ---
Author Organization [facility] Address [address] [place] [address] Assessment Encounter Date Assessment Date Assessment LastModified by Organization Details LastModified Time 02/25/2024 02/25/2024 Will continue current therapy blood work has been ordered x-ray of the neck has been ordered. All questions answered with regards to diagnosis and the assessment and plan follow-up in 4 months [email or web address] Not available 03/08/2024 17:58:08 08/25/2024 08/25/2024 Augmentin 875 b.i.d. symptoms have been going on 3-4 weeks now we will give her 10 days' worth. Hypertension blood pressure under good control ulcerative colitis appears to be stable vitamin-D level we will continue with supplementation she does continue with her nasal sprays she is actually getting allergy desensitization shots as well follow up with me in 4 months. 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 [email or web address] Not available 08/31/2024 18:17:52 Plan of Treatment Reminders Order Date Submit Date Provider Last Modified By Organization Details Last Modified Time Details Appointments ANY 15 2024 10:30A M Tam Hardy MD Not available Not available Not available Lab CBC w/ auto diff 2023 024 [facility], [address], [place], [address], 03/01/2024 06:37:03 lipid panel, serum 2023 024 [facility], [address], [place], [address], 03/01/2024 06:37:02 CMP, serum or plasma 2023 024 [facility], [address] [facility], [address], [place], [address], 03/01/2024 06:37:03 lipid panel, serum 2023 024 [facility], [address], [place], [address], 09/25/2024 09:55:22 CBC w/ auto diff 2023 024 [facility], [address], [place], [address], 11/04/2024 15:06:48 CMP, serum or plasma 2023 024 [facility], [address], [place], [address], 11/04/2024 15:06:48 Referral None recorded. Procedures None recorded. Surgeries None recorded. Imaging XR, cervical spine 2023 [facility], [address], [place], [address], 03/02/2024 13:34:51 Medication Orders Augmentin 875 mg-125 mg tablet 2023 024 [email or web address] [id number], [address] , [place], [address], 08/25/2024 17:47:37 Patient TargetsNo targets recorded. Patient Instructions Encounter Date Encounter Id Patient Instructions Last Modified By Organization Details Last Modified Time 08/25/2024 [id number] A healthy lifestyle: care instructions [email or web address] Not available 08/25/2024 17:47:37 Reason for Referral None Reported. Results Created Date Observation Date Name Description Value Unit Range Abnormal Flag Note LastModifiedBy Organization Detail LastModifiedTime 02/29/20 24 03/01/2024 LIPID PANEL cholesterol, total 160 mg/dL 100-19 9 Not Available [facility] ([facility]) [address] [place], [address], 03/01/2024 06:37:02 02/29/20 24 03/01/2024 LIPID PANEL triglyceride s 114 mg/dL 0-149 Not Available [facility] ([facility]) [address] [place], [address], 03/01/2024 06:37:02 02/29/20 24 03/01/2024 LIPID PANEL HDL cholesterol 47 mg/dL >39 Not Available [facility] ([facility]) [address] [place], [address], 03/01/2024 06:37:02 02/29/20 24 03/01/2024 LIPID PANEL VLDL cholesterol mason 21 mg/dL 5-40 Not Available [facility] ([facility]) [address] [place], [address], 03/01/2024 06:37:02 02/29/20 24 03/01/2024 LIPID PANEL LDL chol calc ([facility]) 92 mg/dL 0-99 Not Available [facility] ([facility]) [address] [place], [address], 03/01/2024 06:37:02 02/29/20 24 03/01/2024 COMP. METAB OLIC PANEL (14) glucose 94 mg/dL 70-99 Not Available [facility] ([facility]) [address] [place], [address], 03/01/2024 06:37:03 02/29/20 24 03/01/2024 COMP. METAB OLIC PANEL (14) BUN 15 mg/dL 8-27 Not Available [facility] ([facility]) [address] [place], [address], 03/01/2024 06:37:03 02/29/20 24 03/01/2024 COMP. METAB OLIC PANEL (14) creatinine 0.76 mg/dL 0.57-1 .00 Not Available [facility] ([facility]) [address] [facility], [place], [address], 03/01/2024 06:37:03 02/29/20 24 03/01/2024 COMP. METAB OLIC PANEL (14) eGFR 85 mL/mi n/1.7 3 >59 Not Available [facility] ([facility]) [address] [facility], [place], [address], 03/01/2024 06:37:03 02/29/20 24 03/01/2024 COMP. METAB OLIC PANEL (14) BUN/creatini ne ratio 20 12-28 Not Available [facility] ([facility]) [address] [facility], [place], [address], 03/01/2024 06:37:03 02/29/20 24 03/01/2024 COMP. METAB OLIC PANEL (14) sodium 138 mmol/ L 134-14 4 Not Available [facility] ([facility]) [address] [place], [address], 03/01/2024 06:37:03 02/29/20 24 03/01/2024 COMP. METAB OLIC PANEL (14) potassium 4.6 mmol/ L 3.5-5. 2 Not Available [facility] ([facility]) [address] [facility], [place], [address], 03/01/2024 06:37:03 02/29/20 24 03/01/2024 COMP. METAB OLIC PANEL (14) chloride 101 mmol/ L 96-106 Not Available [facility] ([facility]) [address] [facility], [place], [address], 03/01/2024 06:37:03 02/29/20 24 03/01/2024 COMP. METAB OLIC PANEL (14) carbon dioxide, total 24 mmol/ L 20-29 Not Available [facility] ([facility]) [address] [place], [address], 03/01/2024 06:37:03 02/29/20 24 03/01/2024 COMP. METAB OLIC PANEL (14) calcium 10.0 mg/dL 8.7-10 .3 Not Available [facility] ([facility]) [address] [facility], [place], [address], 03/01/2024 06:37:03 02/29/20 24 03/01/2024 COMP. METAB OLIC PANEL (14) protein, total 7.2 g/dL 6.0-8. 5 Not Available [facility] ([facility]) [address] [facility], [place], [address], 03/01/2024 06:37:03 02/29/20 24 03/01/2024 COMP. METAB OLIC PANEL (14) albumin 4.5 g/dL 3.9-4. 9 Not Available [facility] ([facility]) [address] [place], [address], 03/01/2024 06:37:03 02/29/20 24 03/01/2024 COMP. METAB OLIC PANEL (14) globulin, total 2.7 g/dL 1.5-4. 5 Not Available [facility] ([facility]) [address] [place], [address], 03/01/2024 06:37:03 02/29/20 24 03/01/2024 COMP. METAB OLIC PANEL (14) A/G ratio 1.7 1.2-2. 2 Not Available [facility] ([facility]) [address] [place], [address], 03/01/2024 06:37:03 02/29/20 24 03/01/2024 COMP. METAB OLIC PANEL (14) bilirubin, total 0.6 mg/dL 0.0-1. 2 Not Available [facility] ([facility]) [address] [place], [address], 03/01/2024 06:37:03 02/29/20 24 03/01/2024 COMP. METAB OLIC PANEL (14) alkaline phosphatase 76 IU/L 44-121 Not Available [facility] ([facility]) [address] [place], [address], 03/01/2024 06:37:03 02/29/20 24 03/01/2024 COMP. METAB OLIC PANEL (14) AST (SGOT) 19 IU/L 0-40 Not Available [facility] ([facility]) [address] [place], [address], 03/01/2024 06:37:03 02/29/20 24 03/01/2024 COMP. METAB OLIC PANEL (14) ALT (SGPT) 11 IU/L 0-32 Not Available [facility] ([facility]) [address] [place], [address], 03/01/2024 06:37:03 02/29/20 24 03/01/2024 CBC WITH DIFFE RENTI AL/PL ATELE T WBC 6.3 x10e3 /uL 3.4-10 .8 Not Available [facility] ([facility]) [address] [place], [address], 03/01/2024 06:37:03 02/29/20 24 03/01/2024 CBC WITH DIFFE RENTI AL/PL ATELE T RBC 4.34 x10e6 /uL 3.77-5 .28 Not Available [facility] ([facility]) [address] [place], [address], 03/01/2024 06:37:03 02/29/20 24 03/01/2024 CBC WITH DIFFE RENTI AL/PL ATELE T hemoglobin 13.2 g/dL 11.1-1 5.9 Not Available [facility] ([facility]) [address] [facility], [place], [address], 03/01/2024 06:37:03 02/29/20 24 03/01/2024 CBC WITH DIFFE RENTI AL/PL ATELE T hematocrit 38.4 % 34.0-4 6.6 Not Available [facility] ([facility]) [address] [facility], [place], [address], 03/01/2024 06:37:03 02/29/20 24 03/01/2024 CBC WITH DIFFE RENTI AL/PL ATELE T MCV 89 fL 79-97 Not Available [facility] ([facility]) [address] [facility], [place], [address], 03/01/2024 06:37:03 02/29/20 24 03/01/2024 CBC WITH DIFFE RENTI AL/PL ATELE T MCH 30.4 pg 26.6-3 3.0 Not Available [facility] ([facility]) [address] [facility], [place], [address], 03/01/2024 06:37:03 02/29/20 24 03/01/2024 CBC WITH DIFFE RENTI AL/PL ATELE T MCHC 34.4 g/dL 31.5-3 5.7 Not Available [facility] ([facility]) [address] [facility], [place], [address], 03/01/2024 06:37:03 02/29/20 24 03/01/2024 CBC WITH DIFFE RENTI AL/PL ATELE T RDW 12.5 % 11.7-1 5.4 Not Available [facility] ([facility]) [address] [place], [address], 03/01/2024 06:37:03 02/29/20 24 03/01/2024 CBC WITH DIFFE RENTI AL/PL ATELE T platelets 269 x10e3 /uL 150-45 0 Not Available [facility] ([facility]) [address] [facility], [place], [address], 03/01/2024 06:37:03 02/29/20 24 03/01/2024 CBC WITH DIFFE RENTI AL/PL ATELE T neutrophils 61 % notest ab. Not Available [facility] ([facility]) [address] [facility], [place], [address], 03/01/2024 06:37:03 02/29/20 24 03/01/2024 CBC WITH DIFFE RENTI AL/PL ATELE T lymphs 27 % notest ab. Not Available [facility] ([facility]) [address] [facility], [place], [address], 03/01/2024 06:37:03 02/29/20 24 03/01/2024 CBC WITH DIFFE RENTI AL/PL ATELE T monocytes 7 % notest ab. Not Available [facility] ([facility]) [address] [facility], [place], [address], 03/01/2024 06:37:03 02/29/20 24 03/01/2024 CBC WITH DIFFE RENTI AL/PL ATELE T eos 4 % notest ab. Not Available [facility] ([facility]) [address] [facility], [place], [address], 03/01/2024 06:37:03 02/29/20 24 03/01/2024 CBC WITH DIFFE RENTI AL/PL ATELE T basos 1 % notest ab. Not Available [facility] ([facility]) [address] [facility], [place], [address], 03/01/2024 06:37:03 02/29/20 24 03/01/2024 CBC WITH DIFFE RENTI AL/PL ATELE T neutrophils (absolute) 3.9 x10e3 /uL 1.4-7. 0 Not Available [facility] ([facility]) [address] [facility], [place], [address], 03/01/2024 06:37:03 02/29/20 24 03/01/2024 CBC WITH DIFFE RENTI AL/PL ATELE T lymphs (absolute) 1.7 x10e3 /uL 0.7-3. 1 Not Available [facility] ([facility]) [address] [facility], [place], [address], 03/01/2024 06:37:03 02/29/20 24 03/01/2024 CBC WITH DIFFE RENTI AL/PL ATELE T monocytes(ab solute) 0.4 x10e3 /uL 0.1-0. 9 Not Available [facility] ([facility]) [address] [facility], [place], [address], 03/01/2024 06:37:03 02/29/20 24 03/01/2024 CBC WITH DIFFE RENTI AL/PL ATELE T eos (absolute) 0.2 x10e3 /uL 0.0-0. 4 Not Available [facility] ([facility]) [address] [facility], [place], [address], 03/01/2024 06:37:03 02/29/20 24 03/01/2024 CBC WITH DIFFE RENTI AL/PL ATELE T baso (absolute) 0.1 x10e3 /uL 0.0-0. 2 Not Available [facility] ([facility]) [address] [facility], [place], [address], 03/01/2024 06:37:03 02/29/20 24 03/01/2024 CBC WITH DIFFE RENTI AL/PL ATELE T immature granulocytes 0 % notest ab. Not Available [facility] ([facility]) [address] [facility], [place], [address], 03/01/2024 06:37:03 02/29/20 24 03/01/2024 CBC WITH DIFFE RENTI AL/PL ATELE T immature grans (abs) 0.0 x10e3 /uL 0.0-0. 1 Not Available [facility] ([facility]) [address], [place], [address], 03/01/2024 06:37:03 03/02/20 24 02/29/2024 XR, cervi mason spine No observ ation record ed. [facility] [address], [place], [address], 03/05/2024 11:40:07 03/15/20 24 03/15/2024 MRI, cervi mason spine , w/o contr ast No observ ation record ed. [facility] [address], [place], [address], 03/25/2024 14:25:36 09/16/20 24 09/16/2024 MAMMO , scree francis, digit al, bilat eral No observ ation record ed. [email or web address] [facility] [address], [place], [address], 09/17/2024 08:56:23 10/03/20 24 10/03/2024 MRI, shoul adebayo, w/o contr ast No observ ation record ed. [facility] [address], [place], [address], 10/03/2024 14:20:07 Result Notes None recorded. Problems Name Problem SNOMED Code Status Onset Date Resolution Date Notes Provider Name and Address Organization Details Recorded Time Essential hypertension 20958139 Active 2023 Samm Covarrubias MA null, [place] - [facility] 4 12:51:24 Neck pain 69942669 Active 2023 Samm Covarrubias [place], [place] [facility] 4 12:51:25 Ulcerative colitis 33930567 Active 2023 Tam Hardy MD Attn: Danielajeronimo campos,[address], [place], [address] [place] [facility] 4 17:56:55 Atrial fibrillation 70095927 Active 2023 Tam Hardy MD Attn: Michelle campos,[address], [place], [address], [place] [facility] 4 17:56:58 Osteopenia 856754000 Active 2023 Tam Hardy MD Attn: Michelle campos,[address], [place], [address], [place] [facility] 4 17:57:00 Vitamin D deficiency 64432286 Active 2023 Tam Hardy MD Attn: Michelle campos,[address], [place], [address], [place] [facility] 4 17:57:58 Sinusitis 64948434 Active 2023 Samm Covarrubias [place] null, [place] [facility] 14:20:37 Problem Notes None recorded. Procedures Surgical History None recorded. Imaging Results Imaging Date Name Status LastModified by Organiz ation Details LastModified Time 02/29/2024 XR, cervical spine completed [facility] [address], [place], [address], 03/05/2024 11:40:07 03/15/2024 MRI, cervical spine, w/o contrast completed [facility] [address], [place], [address], 03/25/2024 14:25:36 09/16/2024 MAMMO, screening, digital, bilateral completed [address], [place], [address], 09/17/2024 08:56:23 10/03/2024 MRI, shoulder, w/o contrast completed [place] [address], [place], [address], 10/03/2024 14:20:07 Procedure Notes None recorded. Medical Equipment None Reported. Allergies Allergen ID Allergen Name Allergen Category Reaction Reaction Severity Criticality Documentation Date Start Date Code Code System Note Provider Name and Address Organization Details Recorded Time [id number] 2824e Substance with sulfonami de structure and antibacte rial mechanism of action (substanc e) medicatio n Not available Not available Not available 02/25/2024 75463 8003 SNOMED Not Available Not Available Not Available Medications Name Sig Start Date Stop Date Status Note LastModified by Organization Details LastModified Time amoxicillin 500 mg capsule TAKE 1 CAPSULE BY MOUTH THREE TIMES DAILY 02/24 completed Not Available Not Available Not Available medroxyprog esterone 2.5 mg tablet TAKE 1 TABLET BY MOUTH EVERY DAY active Not Available Not Available No t Available triamcinolo ne acetonide 0.1 % topical cream APPLY A THIN LAYER TO THE AFFECTED AREA BY TOPICAL ROUTE DAILY NEEDED 02/24 completed Not Available Not Available Not Available oxycodone-a cetaminophe n 5 mg-325 mg tablet TAKE 1 TABLET BY MOUTH EVERY 4 TO 6 HOURS NEEDED FOR PAIN 02/24 completed Not Available Not Available Not Available lisinopril 10 mg tablet TAKE 1 TABLET BY MOUTH EVERY DAY active Not Available Not Available No t Available estradiol 0.5 mg tablet TAKE 1 TABLET DAILY active Not Available Not Available No t Available ergocalcife rol (vitamin D2) 1,250 mcg (50,000 unit) capsule TAKE 1 CAPSULE BY MOUTH THREE TIMES EVERY MONTH active Not Available Not Available No t Available azelastine 137 mcg (0.1 %) nasal spray SPRAY 2 SPRAYS IN EACH NOSTRIL TWICE A DAY FOR 30 DAYS active Not Available Not Available No t Available epinephrine 0.3 mg/0.3 mL injection, auto-inject or PLEASE SEE ATTACHED FOR DETAILED DIRECTION S active Not Available Not Available No t Available ipratropium bromide 21 mcg (0.03 %) nasal spray USE 2 SPRAY(S) IN EACH NOSTRIL TWICE DAILY active Not Available Not Available No t Available diazepam 5 mg tablet TAKE 1/2 (ONE-HALF ) TABLET BY MOUTH TWICE DAILY NEEDED 02/24 completed Not Available Not Available Not Available amoxicillin 875 mg-potassiu m clavulanate 125 mg tablet Take 1 tablet twice a day by oral route for 10 days. active Not Available Not Available No t Available cyclobenzap rine 5 mg tablet TAKE 1 TABLET BY MOUTH THREE TIMES DAILY NEEDED FOR MUSCLE SPASM 05/06 /2024 completed Not Available Not Available Not Available BD Insulin Syringe Ultra-Fine 1 mL 31 gauge x 5/16 DIRECTED SUBCUTANE OUS 8 TIMES A WEEK FOR 90 DAYS active Not Available Not Available No t Available Vitals Date Recorded Body height Provider Name an d Address Organization Details Last Updated DateTime 02/25/2024 161.29 cm Charmaine Coon MA [facility] 02/24 12:15:05 Date Recorded Body mass index (BMI) Body weight Provider Name and Address Organization Details Last Updated DateTime 02/25/2024 24.2 kg/m2 21934.34 g Charmaine Coon MA [facility] 02/25/2024 12:15:08 Date Recorded Heart rate Provider Name an d Address Organization Details Last Updated DateTime 02/25/2024 79 /min Charmaine Coon MA [facility] 02/24 12:19:42 Date Recorded Oxygen saturation Oxygen saturation in Arterial blood by Pulse oximetry Provider Name and Address Organization Details Last Updated DateTime 02/25/2024 99 % 99 % Charmaine Coon MA [facility] 02/25/2024 12:19:44 Date Recorded Body height Provider Name an d Address Organization Details Last Updated DateTime 08/25/2024 161.29 cm Myrna Sifuentes MA [facility] 12:19:07 Date Recorded Body mass index (BMI) Body weight Provider Name and Address Organization Details Last Updated DateTime 08/25/2024 24 kg/m2 86248.67 g Myrna Sifuentes MA [facility] 12:23:16 Date Recorded Oxygen saturation Oxygen saturation in Arterial blood by Pulse oximetry Provider Name and Address Organization Details Last Updated DateTime 08/25/2024 98 % 98 % Myrna Sifuentes MA [facility] 08/25/2024 12:27:24 Date Recorded Heart rate Provider Name an d Address Organization Details Last Updated DateTime 08/25/2024 85 /min Myrna Sifuentes MA [facility] 12:27:35 Date Recorded Systolic blood pressure Diastolic blood pressure Provider Name and Address Organization Details Last Updated DateTime 02/25/2024 128 mm[Hg] 76 mm[Hg] Charmaine Coon MA [facility] 02/25/2024 12:19:40 Date Recorded Systolic blood pressure Diastolic blood pressure Provider Name and Address Organization Details Last Updated DateTime 08/25/2024 120 mm[Hg] 62 mm[Hg] Myrna Sifuentes MA [facility] 08/25/2024 12:27:40 Social History Question Answer Notes LastModified by Organizat ion Details LastModified Time Tobacco Smoking Status Never Smoker Charmaine Coon MA null, [facility] 02/25/2024 12:17:59 What Is Your Level Of Alcohol Consumption? Occasional Information not available 02/25/2024 Are You Blind Or Do You Have Difficulty Seeing? No Information not available 02/25/2024 What Is Your Level Of Caffeine Consumption? Occasional Information not available 08/25/2024 Are You Currently Employed? No Information not available 08/25/2024 Are You Deaf Or Do You Have Serious Difficulty Hearing? No Information not available 02/25/2024 What Type Of Diet Are You Following? REGULAR Information not available 08/25/2024 Are There Any Guns Present In Your Home? No Information not available 08/25/2024 What Was The Date Of Your Most Recent Tobacco Screening? 02/25/2024 Information not available 02/25/2024 What Is Your Relationship Status? Information not available 02/25/2024 Do You Use Your Seat Belt Or Car Seat Routinely? Yes Information not available 02/25/2024 Do You Have Smoke And Carbon Monoxide Detectors In Your Home? Yes Information not available 08/25/2024 Do You Feel Stressed (tense, Restless, Nervous, Or Anxious, Or Unable To Sleep At Night)? [id number] Information not available 02/25/2024 Do You Use Any Illicit Or Recreational Drugs? No Information not available 08/25/2024 Do You Use Sunscreen Routinely? Yes Information not available 08/25/2024 Has Tobacco Cessation Counseling Been Provided? No Information not available 08/25/2024 Do You Or Have You Ever Used Any Other Forms Of Tobacco Or Nicotine? No Information not available 08/25/2024 Sex: Female Functional Status Question Answer Note LastModified by Organization D etails LastModified Time Are you able to care for yourself? Yes Information n ot available 02/25/2024 What is your exercise level? None Information not available 08/25/2024 Mental Status None recorded. Family History Nothing Reported. Medical History No medical history recorded. Gynecological History Statement/Question Response If Post Menopausal, Age at Menopause 47 Obstetrics History GPAL:G 2 P 2 0 0 2 Type Value Full Term 2 Living 2 Total 2 Past Encounters Encounter ID Performer Location Encounter Start Date Encounter Closed Date Diagnosis/Indication Diagnosis SNOMED-CT Code Diagnosis ICD10 Code Diagnosis Note [id number] Tam Hardy MD [facility] [address] [place] [address] 02/25/2024 11:53:24 02/25/2024 12:52:59 Essential hypertension 64673393 I10 Neck pain 16099426 M54.2 Ulcerative colitis 80162 004 K51.90 Atrial fibrillation 4943 6004 I48.91 Osteopenia 410110961 M85 .80 Vitamin D deficiency 347 82424 E55.9 [id number] Tam Hardy MD [facility] [address] [place] [address] 08/25/2024 11:52:08 08/25/2024 14:35:50 Body mass index 20-24 - normal 040898414 Z68.24 Sinusitis 15375654 J32.9 Essential hypertension 39342224 I10 Ulcerative colitis 34292 004 K51.90 Vitamin D deficiency 347 38617 E55.9 Health Concerns Section Related Observation LastModified by Organization Detai ls LastModified Time None Recorded Concern Status LastModified by Organization Details LastModified Time None Recorded Advance Directives Directive None Recorded Payers Encounter Date Sequence Insurance Name Policy Number Policy Gomez Covered Member ID Gomez Member ID Guarantor Name 02/25/2024 1 [place] Anny Valladares [id number] Anny Valladares 02/25/2024 2 [employer] (MEDICARE SUPPLEMENT) Anny Valladares [id number] Anny Valladares 08/25/2024 2 [employer] (MEDICARE SUPPLEMENT) Anny Valladares [id number] Anny Valladares 08/25/2024 [place] - [place] - [facility] Anny Valladares [id number] Anny Valladares Notes Date Note Type Note Provider Name and Address Organization Details Recorded Time 02/25/2024 text/html Is a 8-year-old for follow-up of her medical problems of ulcerative colitis hypertension A-fib status post ablation chronic sinus problems and osteopenia only new issues she has got a little bit of neck pain and hurts when she turns her from [id number] feels stiff at times without any trauma and no radicular symptoms Tam Hardy MD Attn: [address] [facility], [place], [address], [facility] 03/08/2024 17:58:57 08/25/2024 text/html hypertension no headache or dizziness. 2. Sinuses flared up with yellowish discharge and pressure. 3. Ulcerative colitis she has not had any abdominal pain diarrhea or blood in stool. 4. Low vitamin-D level she does take supplementation there was no muscle or bone pain Tam Hardy MD Attn: [address] [facility], [place], [address], [facility] 08/31/2024 18:18:33 OBGyn Episode No OBEpisode recorded.
== END 2024-11-10 11:32 | disposition home or self-care (01) ==
PROVIDERS: PCP Internal Medicine; Visit Provider Internal Medicine Gastroenterology
PROC: 0DJD8ZZ Inspection of Lower Intestinal Tract, Via Natural or Artificial Opening Endoscopic (ICD-10-PCS; CPT 45378; principal; 2024-11-10 11:00)
DX: K51.50 Left sided colitis without complications (principal)
CPT/HCPCS: 45380; 88305; J2003; J2704; J7120

== ENCOUNTER 2024-11-19 14:48 | Outpatient (CLI) | payer MEDICARE, OTHER, SELFPAY ==
--- NOTE | ~2024-11-19 | DEXA_ITS ---
Bone Density Report Name: MASON QUINTEROS Age: 69 Sex: Female Ethnicity: White Date of : 1955 Indication: postmenopausal; screening for osteoporosis; Referring Provider: ELENA ALEJANDRA Study: Bone densitometry was performed. Exam Date: November 19, 2024 Accession number: [id number] Bone Density: Region BMD T-score Z-score Classification AP Spine(L1-L4) 0.946 -0.9 1.2 Normal Femoral Neck (Left) 0.551 -2.7 -0.9 Osteoporosis Total Hip (Left) 0.682 -2.1 -0.6 Osteopenia Femoral Neck (Right) 0.595 -2.3 -0.5 Osteopenia Total Hip (Right) 0.662 -2.3 -0.8 Osteopenia Total Hip Mean 0.672 -2.2 -0.7 Osteopenia World Health Organization criteria for BMD impression classify patients as: Normal (T-score at or above -1.0), Osteopenia (T-score between -1.0 and -2.5), or Osteoporosis (T-score at or below -2.5). 10-year Fracture Risk: FRAX not reported because: Some T-score for Spine Total or Hip Total or Femoral Neck at or below -2.5 Clinical Information Provided by Patient: Has used the following medications: HRT (i.e. estrogen/hormone therapy), Vitamin D, Calcium Patient maximum height was 64.5 Menopause Age: 47 No regular weight bearing exercise Drinks caffeinated beverages Onset of menses at age 11 Number of children 2 Impression: The patient has osteoporosis, based on the Left Femoral Neck T-score. Discussion: INCREASED RISK OF FRACTURE. BONE DENSITY IS UNDESIRABLY LOW AT ONE OR MORE SKELETAL SITES, CONSISTENT WITH POSTMENOPAUSAL OSTEOPOROSIS. This patient's lowest T-score meets the World Health Organization's (WHO) criteria for osteoporosis at one or more sites (T-score -2.5 or below). In untreated patients, the risk of osteoporotic fracture increases approximately two-fold for each 1.0 SD decrease in T-score. Low bone density is not the only risk factor for fracture; also consider factors such as patient's age, frailty or poor health, risk of falling, risk of injury, previous osteoporotic fracture, family history of osteoporosis, cigarette smoking, low body weight, etc. Not everyone with low bone mineral density has osteoporosis; osteomalacia and other metabolic bone disorders should also be considered. Patients who have osteoporosis should be evaluated for specific diseases and conditions (secondary causes) that may cause or contribute to bone loss. The [place] [employer]ocr[employer] (AACE) and National Osteoporosis Foundation (NOF) recommend pharmacologic intervention for all postmenopausal women whose T-score is in this range. The patient should follow a healthful lifestyle (good nutrition with adequate calcium and vitamin D, and appropriate weight-bearing exercise). Follow-Up: Consider a repeat BMD and Vertebral Fracture Assessment (VFA) exam in 2 years or sooner if medically necessary, to reassess this patient's status. Reported by: JUANITA on 11/19/2024 3:20:00 PM. Reviewed, dictated and finalized at location [facility]
--- OUTSIDE RECORDS SUMMARY | 2024-11-19 15:39 | XMS_ITS | Patient Health Summary ---
Author Organization [facility] Address [address] [place] [place] [address] Care Team Providers Care Dock Loader Name Role Phone Tam Hardy MD Primary Care Provider [phone] Note from [facility],non-owned Affiliates and Associated Physician Practices is amultiple site organization consisting of ambulatory clinics and hospital sitesin [place], [place], [place] and [place]. This disclosure is being madepursuant to the Care Everywhere program and may not contain all information available regarding this patient. Last updated 18.[facility] Allergies No known active allergies Medications * Be aware that medications may not be up to date on this document. Alwaysverify current medications with the patient. * mesalamine EC (LIALDA) 1.2 GM tablet Take 2.4 g by mouth daily with breakfast. * fexofenadine-pseudoephedrine ER 12hr (SHARON-D) 60-120 MG tablet(Started 06/06/2010) Take 1 Tab by mouth 2 times daily. 5 refills left * azelastine (ASTELIN) 137 MCG/SPRAY nasal spray(Started 08/31/2010) [place] 1 [place] into each nostril 2 times daily. [...] D 25-HYDROXY (03/30/2011 11:20 AM CDT) Pathologist [facility] [place] Vitamin D, 25 Hydroxy 54 30 - [...] levels are >/=30 ng/mL. Test Performed at: [facility] [place] [id number] [place] [address] ??[phone] PENG MIRZA MD,FCAP BLOOD SPECIMEN / Unknown 03/30/2011 11:20 AM CDT 03/30/2011 10:45 PM CDT Drew Dickens MD LAB - CHEMISTRY LIZZY JAMES [facility] Organization Address City/State/ZIP Co de Phone Number [facility] [address] [place] [address] * CBC W AUTO DIFFERENTIAL (03/30/2011 11:20 AM CDT) Only the most recent of3 resultswithin the time period is included. Pathologist [facility] White Blood Cell Count 4.6 3.8 - [...] 0.9 % [facility] Comment: Test Performed at: [email or web address] [place], [place] ??[address] DENTON HUFFMAN DO,MPH BLOOD SPECIMEN / Unknown 03/30/2011 11:20 AM CDT 03/30/2011 10:45 PM CDT Drew Dickens MD LAB - HEMATOLOGY ORD ERABLES [facility] [address] [place] [address] * COMPREHENSIVE METABOLIC PANEL (03/30/2011 11:20 AM [...] [facility] Comment: Test Performed at: [facility] [address] ??[phone] DENTON HUFFMAN DO,MPH BLOOD SPECIMEN / Unknown 03/30/2011 11:20 AM CDT 03/30/2011 10:45 PM CDT Drew Dickens MD LAB - [facility]MI[facility]Y ORDLAFAYET[facility]ENTEREL[facility] Performing Organization Address [facility] Co de Phone Number [address] [address] * TSH (03/30/2011 11:20 AM CDT) TSH 1.64 0.40 - 4.50 mIU/L [facility] Comment: Test Performed at: [facility] [address] ??[phone] DENTON HUFFMAN DO,MPH BLOOD SPECIMEN / Unknown 03/30/2011 11:20 AM CDT 03/30/2011 10:45 PM CDT Drew Dickens MD LAB - CHEMISTRY ORDJavid JAMES Performing Organization Address [facility] Co de Phone Number [address] [address] * (ABNORMAL) LIPID PROFILE (03/30/2011 11:20 AM CDT) Only the most recent of3 resultswithin the time period is included. Cholesterol 146 125 - 200 mg/dL [facility] Comment: Test Performed at: [email or web address] ??[phone] DENTON HUFFMAN DO,MPH HDL Cholesterol 40(L) > [...] - CHEMISTRY LIZZY JAMES Performing Organization Address [facility]/ZIP Co de Phone Number [facility] [address] [place] [address] * PATHOLOGY/CYTOLOGY REPORT ORDER (12/02/2009) Drew Dickens MD LAB - PATHOLOGY/CYTO LOGY ORDERABLES * ENDOSCOPY, COLON, SCREENING (12/01/2009) Drew Dickens MD GI PROCEDURE ORDERAB LES * THYROID PANEL W TSH (09/09/2008 8:39 AM BALLOON SANDER) T3 Uptake 28 22 - 35 % [facility] T4 Total 11.8 4.5 - 12.5 mcg/dL [facility] Thyroxine Free Index 3.3 1.4 - 3.8 [facility] SEE NOTE [facility] Comment: TSH W/REFLEX TO FREE T4 (TEST CODE 80061) IS CONSIDERED A STANDARD OF PATIENT CARE FOR ASSESSING THYROID DISEASE BY THE [employer] AND THE ENDOCRINE SOCIETY.--AMA, CPT-4 CODE BOOK, 2004. Test Performed at: [facility] [email or web address], [place] ??[phone] DENTON ARROYO MD TSH 3.85 mIU/L [facility] Comment: REFERENCE RANGE: > OR = 20 YEARS: 0.40-4.50 ? RANGES FIRST TRIMESTER ?0.20-4.70 SECOND TRIMESTER ?? 0.30-4.10 THIRD TRIMESTER ?0.40-2.70 09/09/2008 8:39 AM BALLOON SANDER 09/09/2008 5:29 PM BALLOON SANDER Drew Dickens MD LAB - CHEMISTRY LIZZY JAMES Performing Organization Address [facility] Co de Phone Number [facility] [address] [place] [address] * RPR QUANTITATIVE (09/09/2008 8:39 AM BALLOON SANDER) RPR (Monitor) W/Reflex Titer NON-REACT FLORIN NON - REACTIVE [facility] Comment: Test Performed at: [facility] [id number] [employer] [facility] ??[phone] DENTON ARROYO MD 09/09/2008 8:39 AM BALLOON SANDER 09/09/2008 5:29 PM BALLOON SANDER Drew Dickens MD LAB - CHEMISTRY LIZZY JAMES Performing Organization Address [facility] Co de Phone Number [facility] [id number] [place] [address] * RHEUMATOID FACTOR BLOOD QUANTITATIVE (09/09/2008 8:39 AM BALLOON SANDER) Rheumatoid Factor 3 <14 IU/mL [facility] Comment: Test Performed at: [facility] [place] [address] [place], [place] ??[phone] DENTON ARROYO MD 09/09/2008 8:39 AM BALLOON SANDER 09/09/2008 5:29 PM BALLOON SANDER Drew Dickens MD LAB - CHEMISTRY LIZZY JAMES Performing Organization Address [facility] de Phone Number [facility] [address] [place] [address] * SERA BLOOD SCREEN (09/09/2008 8:39 AM BALLOON SANDER) ANAchoice [TM] Screen NEGATIVE NEGATIVE [facility] Comment: Test Performed at: [facility] [place] [address] [facility], [place] ??[address] DENTON ARROYO MD 09/09/2008 8:39 AM BALLOON SANDER 09/09/2008 5:29 PM BALLOON SANDER Drew Dickens MD LAB - CHEMISTRY LIZZY JAMES Performing Organization Address [facility] de Phone Number [facility] [address] [place] [address] * SED RATE WESTERGREN AUTO (09/09/2008 8:39 AM BALLOON SANDER) Erythrocyte Sedimentation Rate Westergren 9 < OR = 30 mm/h [facility] Comment: Test Performed at: [facility] [place] [id number] [facility] [place] ??[phone] DENTON ARROYO MD 09/09/2008 8:39 AM BALLOON SANDER 09/09/2008 5:29 PM BALLOON SANDER Drew Dickens MD LAB - HEMATOLOGY ORD ERABLES Performing Organization Address [facility] de Phone Number [facility] [address] [place] [address] * IRON + TIBC PANEL (09/09/2008 8:39 AM BALLOON SANDER) Iron 76 40 - 160 mcg/dL [facility] TIBC 410 250 - 450 mcg/dL [facility] % Saturation 19 15 - 50 % (calc) [facility] Comment: Test Performed at: [facility] [place] [address] [place], [place] ??[address] DENTON ARROYO MD 09/09/2008 8:39 AM BALLOON SANDER 09/09/2008 5:29 PM BALLOON SANDER Drew Dickens MD LAB - CHEMISTRY LIZZY JAMES Performing Organization Address [facility] de Phone Number [facility] [address] [place] [address] * VITAMIN B12 FOLATE PANEL (09/09/2008 8:39 AM BALLOON SANDER) Vitamin B12 725 200 - 1100 pg/mL [facility] Folate >24.0 ng/mL [facility] Comment: ? REFERENCE RANGE: ? LOW: ? < 3.4 ? BORDERLINE: ??3.4-5.4 ? NORMAL: ?> 5.4 Test Performed at: [facility] [address] [place], [place] ??[address] DENTON ARROYO MD 09/09/2008 8:39 AM BALLOON SANDER 09/09/2008 5:29 PM BALLOON SANDER Drew Dickens MD LAB - CHEMISTRY LIZZY JAMES Performing Organization Address [facility] de Phone Number [facility] [address] [place] [address] * HEPATITIS SCREEN ACUTE (09/09/2008 8:39 AM BALLOON SANDER) Pathologist [facility] Hepatitis A Virus Antibody IgM NON-REACT FLORIN NON - REACTIVE [facility] Comment: Test Performed at: [email or web address] [id number] [place] [address] ??[phone] DENTON ARROYO MD Hepatitis B Virus Surface Antigen NON-REACT FLORIN NON - REACTIVE [facility] Hepatitis B Core Virus Antibody IgM NON-REACT FLORIN NON - REACTIVE [facility] Hepatitis C Antibody NON-REACT FLORIN NON - REACTIVE [facility] Signal to Cut-Off 0.25 <1.00 [facility] 09/09/2008 8:39 AM BALLOON SANDER 09/09/2008 5:29 PM BALLOON SANDER Drew Dickens MD LAB - CHEMISTRY LIZZY JAMES [facility] [address] [place] [address] * GROSS + MICRO EXAM (07/12/2006 10:45 AM CDT) Only the most recent of4 resultswithin the time period is included. Pathologist [facility] Result CASE NUMBER [id number] Comment: ORDERING [...] inflammation Dictated by ? Denton Barton M.D. Flush Tester ? RAIZA HUMPHREY Electronically Signed By ? DENTON BARTON MISCELLANEOUS SAMPLES / Unknown 07/12/2006 10:45 AM CDT 07/12/2006 3:36 PM CDT Historical Provider LAB - PATHOLOGY/C YTOLOGY ORDERABLES Care Teams Dock Loader Relationship Specialty Start Date End Date Tam Hardy MD PCP - General 07/09/21
--- OUTSIDE RECORDS SUMMARY | 2024-11-19 15:39 | XMS_ITS | Data Portability ---
Author Organization [place] - [facility], Main Office Address [address] [place] [address] Care Team Providers Care Machine Preservative Filler Name Role Phone JEANETTE HARDY Primary Care Provider [phone] JEANETTE HARDY Referring Provider Assessment Encounter Date Assessment Date Assessment LastModified by Organization Details LastModified Time 02/19/2023 02/19/2023 Amoxicillin for 7 days Not available 02/25/2023 12:10:44 05/29/2023 05/29/2023 Dermatitis [...] this point I will await ENTs opinion Not available 07/28/2023 13:20:33 10/30/2023 10/30/2023 Continue current therapy follow-up 6 months all questions have been answered Not available 10/30/2023 22:23:58 Plan of Treatment Reminders Order Date Submit Date Provider Last Modified By Organization Details Last Modified Time Details Appointments None recorded. Lab None recorded. Referral ENT surgery referral 2022 023 LJ Hurst, [address], [place], [address], 11/20/202 3 21:15:18 Procedures None recorded. Surgeries None recorded. Imaging None recorded. Medication Orders amoxicillin 500 mg capsule [email or web address] [facility], [place], [address], 3 13:58:55 triamcinolo ne acetonide 0.1 % topical cream [email or web address] [facility], [address], [place], [address], 3 16:02:20 Patient TargetsNo targets recorded. Patient InstructionsNo instructions recorded. Reason for Referral ENT Surgery Referral for Justin n of ear Referring Physician: Jeanette Hardy, Internal Medicine, Encounter Date: 07/27/2023 Results Created Date Observation Date Name Description Value Unit Range Abnormal Flag Note LastModifiedBy Organization Detail LastModifiedTime 12/23/1912/22/2022 CT, sinus es, w/o contr ast No observ ation record ed. [facility] [address], [place], [address], 02/20/2023 09:32:43 01/03/20 23 12/02/2022 MRI, lumba r spine , w/o contr ast No observ ation record ed. [email or web address] Not Available 11/2022 09:32:43 03/13/20 23 03/13/2023 XR, shoul [email or web address] No observ ation record ed. [address], [place], [address], 05/30/2023 09:31:18 03/03/20 24 02/29/2024 XR, cervi mason spine , 2 or 3 view No observ ation record ed. [facility] [address], [place], [address], 07/07/2024 13:10:36 03/15/20 24 03/15/2024 MRI, cervi mason spine , w/o contr ast No observ ation record ed. [email or web address] [facility] [address] [facility], [place], [address], 07/07/2024 17:04:22 Result Notes None recorded. Problems Name Problem SNOMED Code Status Onset Date Resolution Date Notes Provider Name and Address Organization Details Recorded Time Abdominal pain 98530666 Active 2016 Not Available [facility] 3 01:18:58 Low back pain 979521706 Active 2021 Not Available [facility] 3 01:18:58 Pain of left hip joint 31619303138 9100 Active 2021 Not Available [facility] 3 01:18:58 Sinusitis 62663847 Active 2021 Not Available [facility] 3 01:18:58 Chronic sinusitis 83291561 Active 2022 Not Available [facility] 3 01:18:58 Chronic ulcerativ e colitis 498893032 Active 2016 Not Available [facility] 3 01:18:58 Hip pain 79453942 Active 2021 Not Available [facility] 3 01:18:58 Atrial fibrillat ion 50824057 Active 2016 no AC because of inflammat ory bowel disease Not Available [facility] 3 01:18:58 Cough 21656235 Active 2021 Not Available [facility] 3 01:18:59 Upper respirato ry infection 25484822 Active 2021 Not Available [facility] 3 01:18:59 Acute upper respirato ry infection 13762940 Active 2021 Not Available [facility] 3 01:18:59 Essential hypertens ion 87322042 Active 2016 Not Available [facility] 3 01:18:59 Generaliz ed rash 317279470 Active 2021 Not Available [facility] 3 01:18:59 COVID-19 194176217 Active 2021 Not Available [facility] 3 01:18:59 Chronic rhinitis 86390859 Active 2016 Not Available [facility] 3 01:18:59 Otitis media 58190943 Active 2022 Samm Covarrubias RMA null, [place] [facility] 3 15:49:08 Earache symptom 958959429 Active 2022 Marjan Arevalo RN null, [place] [facility] 3 11:25:13 Pain of ear 047067166 Active 2022 Samm Covarrubias RMA null, [place] [facility] 3 13:36:13 Vertigo 865844452 Active 2022 Samm Gonzalezalberto RMA null, [place] [facility] 3 13:36:56 Problem Notes None recorded. Procedures Surgical History Date Name Laterality Status Provider Name and Address Organization Details Recorded Time 11/13/19 23 Dental completed Not Available [facility] 12/20/2022 01:05:40 08/27/20 20 Rotator cuff surgery completed Not Available [facility] 12/20/2022 01:05:40 10/16/20 14 Orthopedic Surgery completed Not Available [facility] 12/20/2022 01:05:40 06/04/20 14 Unlisted procedure nose completed Not Available [facility] 12/20/2022 01:05:40 10/28/19 09 total knee replacement completed Not Available [facility] 12/20/2022 01:05:40 07/28/20 07 Knee Replacement completed Not Available [facility] 12/20/2022 01:05:40 07/12/20 06 Arthroscopy completed Not Available [facility] 12/20/2022 01:05:40 01/11/20 06 Cholecystectomy completed Not Available [facility] 12/20/2022 01:05:40 07/19/20 05 other completed Not Available [facility] 12/20/2022 01:05:40 07/05/20 05 Arthroscopy completed Not Available [facility] 12/20/2022 01:05:40 intravenous blood transfusion completed Not Available [facility] 12/20/2022 01:05:40 destruction of lesion of heart completed Not Available [facility] 12/20/2022 01:05:40 Imaging Results Imaging Date Name Status LastModified by Organiz ation Details LastModified Time 12/22/2022 CT, sinuses, w/o contrast completed [email or web address] [facility] [address], [place], [address], 02/20/2023 09:32:43 12/02/2022 MRI, lumbar spine, w/o contrast completed [email or web address] Information not available 02/20/2023 09:32:43 03/13/2023 XR, shoulder completed [email or web address] [facility] [address], [place], [address], 05/30/2023 09:31:18 02/29/2024 XR, cervical spine, 2 or 3 view completed [email or web address] [facility] [address], [place], [address], 07/07/2024 13:10:36 03/15/2024 MRI, cervical spine, w/o contrast completed [facility] [address], [place], [address], 07/07/2024 17:04:22 Procedure Notes None recorded. Medical Equipment None Reported. Allergies Allergen ID Allergen Name Allergen Category Reaction Reaction Severity Criticality Documentation Date Start Date Code Code System Note Provider Name and Address Organization Details Recorded Time 2794 Substance with sulfonami de structure and antibacte rial mechanism of action (substanc e) medicatio n rash Not available Not available 12/20/2022 38678 8003 SNOMED Not Available [facility] 01:38:41 Medications Name Sig Start Date Stop [...] e 50 mcg/actua tion nasal spray,katie pension Concho 2 sprays every day by intranas al [...] Available Not Available Vitamin D3 one capsule [id number] active duplicat e Not Available Not [...] kg/m2 160.02 cm 78 /min 97.2 [degF] 33756.6 7 g 140 mm[Hg] 80 mm[Hg] Not Available [facility] 3 01:08:40 Date Recorded Body height Body mass index (BMI) Body weight Body temperature Heart rate Systolic blood pressure Diastolic blood pressure Provider Name and Address Organization Details Last Updated DateTime 3 160.02 cm 26.2 kg/m2 22526.6 7 g 98.5 [degF] 67 /min 140 mm[Hg] 82 mm[Hg] BJ Hammer [employer] [facility] 3 15:08:24 Date Recorded Body height Body mass index (BMI) Body weight Body temperature Heart rate Systolic blood pressure Diastolic blood pressure Provider Name and Address Organization Details Last Updated DateTime 3 160.02 cm 25.3 kg/m2 96979.7 1 g 97.2 [degF] 77 /min 138 mm[Hg] 82 mm[Hg] BJ Hammer [employer] [facility] 3 14:02:08 Date Recorded Body height Body mass index (BMI) Body weight Body temperature Heart rate Oxygen saturation Oxygen saturation in Arterial blood by Pulse oximetry Systolic blood pressure Diastolic blood pressure Provider Name and Address Organization Details Last Updated DateTime 3 160.02 cm 25.3 kg/m2 69790.7 1 g 97 [degF] 75 /min 98 % 98 % 130 mm[Hg] 80 mm[Hg] Edda Vallejo MA [employer] [facility] 3 12:47:37 Date Recorded Body height Body mass index (BMI) Body weight Body temperature Heart rate Systolic blood pressure Diastolic blood pressure Provider Name and Address Organization Details Last Updated DateTime 4 160.02 cm 25.2 kg/m2 73778.1 2 g 97.4 [degF] 93 /min 126 mm[Hg] 78 mm[Hg] BJ Hammer [facility] [employer] [facility] 4 11:09:17 Social History Question Answer Notes LastModified by Organization Details LastModified Time Tobacco Smoking Status Never Smoker BJ Voss [facility] [employer] [facility] 05/29/2023 13:54:45 Do You Have An Advance Directive? No [id number] Information not available 12/20/2022 What Is Your Level Of Alcohol Consumption? Occasional [id number] [id number] Information not available 12/20/2022 Do You Wear A Helmet When Biking? No Information not available 05/29/2023 Are You Blind Or Do You Have Difficulty Seeing? No Information not available 05/29/2023 What Is Your Level Of Caffeine Consumption? Occasional [id number] [id number] Information not available 12/20/2022 How Much Tobacco Do You Chew? None [id number].[id number] [id number] Information not available 12/20/2022 In The 14 [...] Of Diet Are You Following? REGULAR MIGRATION.0301 [id number] Information not available 12/20/2022 Which Illicit Or Recreational Drugs Have You Used? None Information not available 05/29/2023 Do You Or Have You Ever Used E-cigarettes Or Vape? Never Used Electronic Cigarettes Information not available 05/29/2023 What Is The Highest Grade Or Level Of School You Have Completed Or The Highest Degree You Have Received? [id number] Information not available 05/29/2023 What Is Your [...] not available 05/29/2023 Where Do You Live? [facility] Information not available 05/29/2023 Do You Have A Medical Power Of Machinist Apprentice? No Information not available 05/29/2023 What Was The Date Of Your Most Recent Tobacco Screening? 10/30/2023 [email or web address] Information not available 10/30/2023 Have You Ever Been Counseled For Unhealthy Alcohol Use? No Information not available 05/29/2023 Do You Have Any Pets? Yes Information not available 05/29/2023 What Is Your Relationship Status? [id number].[id number] [id number] Information not available 12/20/2022 Do You Use Your Seat Belt Or Car Seat Routinely? Yes Information not available 05/29/2023 Do You Have Smoke And Carbon Monoxide Detectors In Your Home? Yes Information not available 05/29/2023 Are You Passively Exposed To Smoke? No Information not available 05/29/2023 Do You Or Have You Ever Used Smokeless Tobacco? Never Used Smokeless Tobacco [id number] [id number] Information not available 12/20/2022 Are There Any Smokers In Your House? No Information not available 05/29/2023 How Much Tobacco Do You Smoke? No [id number].[id number] [id number] Information not available 12/20/2022 What Types Of Sporting Activities Do You Participate In? None Information not available 05/29/2023 Do You Feel Stressed (tense, Restless, Nervous, Or Anxious, Or Unable To Sleep At Night)? [id number] Information not available 05/29/2023 Do You Use [...] 05/29/2023 What is your exercise level? Moderate [id number] Information not available 12/20/2022 Mental Status Question Answer Note LastModified by Organization D etails LastModified Time Do you have difficulty concentrating, remembering or making decisions? No Information no t available 05/29/2023 Family History Relationship Description Onset Age of this Age Resolved Age Notes LastModified by Organization Details LastModified Time Father Heart disease [id number] Not available 12/20/2022 01:05:44 Mother Hypertensive disorder [id number] Not available 12/20/2022 01:05:44 Mother Depressive disorder [id number].099 [id number] Not available 12/20/2022 01:05:44 Brother Malignant tumor of thyroid gland 52 [address] Thyroi dectom y cyahl Not available 05/29/2023 13:54:45 Brother Carcinoma in situ of prostate cyahl Not available 2022 13:54:45 Brother Family history of malignant neoplasm thyroi d & testic ford [email or web address] Not available 05/29/2023 13:59:51 Medical History Condition Response NERVE DISEASE N BLINDNESS N RHEUMATIC FEVER N KIDNEY STONES N BLADDER PROBLEMS N OTHER # 1 N POLIO N LUNG DISEASE/DISORDER N RADIATION / CHEMOTHERAPY N COPD N Other # 2 N BLOOD DISEASES N SURGERY N EAR OR HEARING PROBLEMS N MUMPS N DEPRESSION (INCLUDING POST ) N BOWEL PROBLEMS Y STROKE/TIA N ULCERS N BENIGN PROSTATIC HYPERPLASIA N MEASLES N MYOCARDIAL INFARCTION N OBESITY N GERD/NAUSEA N ANEURYSM N URINARY/BLADDER/KIDNEY PROBLEMS N INPATIENT PSYCH CARE N CORONARY ARTERY DISEASE (CAD) N ADDICTION CONCERNS N Impotence N ENDOMETRIOSIS N USE OF BLOOD THINNERS N SKIN [...] APNEA N CHICKENPOX N INFECTIOUS DISEASE N PROSTATE N HEART ARRHYTHMIA N INSOMNIA N HIGH CHOLESTEROL / HYPERLIPIDEMIA N EYE PROBLEMS N HYPERTHYROIDISM N NEUROLOGICAL PROBLEMS N EDEMA N CHRONIC [...] N ALZHEIMER'S DISEASE N Brain Problems N DEMENTIA N HERPES N SEIZURES/EPILEPSY N HEADACHES/MIGRAINES N VASCULAR DISEASE N PACEMAKER N Blood Disorder N DIZZINESS N HEART DISEASE/HEART PROBLEMS N KIDNEY DISEASE N MULTIPLE SCLEROSIS N CANCER: SPECIFY N CARDIAC ARRHYTHMIA N ANESTHESIA COMPLICATIONS N ATRIAL FIBRILLATION Y Gall Stones N PULMONARY EMBOLISM N AUTOIMMUNE DISEASE N Gynecological HistoryNo gynecological history recorded. Obstetrics History GPAL:G 0 P 0 0 0 0 Immunizations Vaccine Type Date Status Note Provider Nam e and Address Organization Details Recorded Time COVID-19, mRNA, LNP-S, PF, 30 mcg/0.3 mL dose 1 completed Not Available [facility] 12/20/2022 01:38:18 COVID-19, mRNA, LNP-S, PF, 30 mcg/0.3 mL dose 1 completed Not Available [facility] 12/20/2022 01:38:18 COVID-19, mRNA, LNP-S, PF, 30 mcg/0.3 mL dose 1 completed Not Available [facility] 12/20/2022 01:38:18 tetanus toxoid, unspecified formulation 2 completed Not Available [facility] 12/20/2022 01:38:18 Past Encounters Encounter ID Performer Location Encounter Start Date Encounter Closed Date Diagnosis/Indication Diagnosis SNOMED-CT Code Diagnosis ICD10 Code Diagnosis Note [id number] [facility] [place] [address] [place] [address] y , [place] [address] 12/23/2020 00:00:00 12/23/2020 20:48:10 [id number] [facility] [place] [address] [place] [address] y , [place] [address] 02/01/2021 00:00:00 02/01/2021 22:50:35 [id number] [facility] [place] [address] [place] [address] y , [place] [address] 06/23/2021 00:00:00 06/26/2021 21:02:45 [id number] [facility] [place] [address] [place] [address] y , [place] [address] 12/06/2021 00:00:00 12/06/2021 21:54:40 [id number] [facility] [place] [address] [place] [address] [place] [address] 12/29/2021 00:00:00 01/22/2022 13:00:44 [id number] [facility] [address], [facility] [address] [place] [address] 04/14/2022 00:00:00 04/16/2022 14:05:28 [id number] [facility] [place] [address] [place] [address] y , [place] [address] 05/30/2022 00:00:00 06/04/2022 21:07:17 [id number] [facility] [place] [address] [facility] [address] [place] [address] 06/28/2022 00:00:00 06/28/2022 16:29:59 [id number] [facility] [place] [address] , [place] [address] 09/21/2022 00:00:00 09/22/2022 22:07:53 [id number] [facility] [place] [address] [facility] y , [place] [address] 11/30/2022 00:00:00 12/03/2022 21:05:24 [id number] Jeanette Haryd MD [facility] [address] [facility] [address] [place] [address] 02/19/2023 14:55:54 02/19/2023 15:50:26 Otitis media 69816257 H66.91 [id number] Jeanette Hardy MD [facility] [place] [address] [place] [address] y , [place] [address] 05/29/2023 13:54:32 05/29/2023 14:34:45 Renewal of prescription 003672963 Z76.0 Atrial fibrillation 4943 6004 I48.91 Chronic rhinitis 1060597 6 J31.0 Chronic ul cerative colitis 309634011 K51.90 Essential hypertension 48737059 I10 [id number] Jeanette Hardy MD [facility] Internal Med [facility] [address] [facility], [facility] [address] [place] [address] 07/27/2023 12:01:15 07/27/2023 13:52:08 Pain of ear 114242862 H92.01 [id number] Jeanette Hardy MD [facility] [place] [address] [place] [address] [place] [address] 10/30/2023 11:01:58 10/30/2023 12:00:02 Atrial fibrillation 10505763 I48.91 Chronic ul cerative colitis 753230931 K51.90 Essential hypertension 33151929 I10 Chronic rhinitis 5039458 6 J31.0 Health Concerns Section Related Observation LastModified by Organization Detai ls LastModified Time None Recorded Concern Status LastModified by Organization Details LastModified Time None Recorded Advance Directives Directive N: Payers Encounter Date Sequence Insurance Name Policy Number Policy Gomez Covered Member ID Gomez Member ID Guarantor Name 02/19/2023 1 [place] Anny A Burdge [id number] Anny A Burdge 02/19/2023 2 Incoming Media INS[employer]ANCE [employer] (MEDICARE SUPPLEMENT) Anny Burdge [id number] Anny A Burdge 05/29/2023 1 [place] Anny A Burdge [id number] Anny A Burdge 05/29/2023 2 Incoming Media [employer] (MEDICARE SUPPLEMENT) Anny Burdge [id number] Anny A Burdge 07/27/2023 1 [place] Anny A Burdge [id number] Anny A Burdge 07/27/2023 2 Incoming Media [employer] (MEDICARE SUPPLEMENT) Anny Burdge [id number] Anny A Burdge 10/30/2023 1 [place] Anny A Burdge [id number] Anny A Burdge 10/30/2023 2 Incoming Media [employer] (MEDICARE SUPPLEMENT) Anny Burdge [id number] Anny A Burdge Notes Date Note Type Note Provider Name and Address Organization Details Recorded Time 02/19/2023 text/html right earache no decrease in hearing Jeanette Hardy MD [address], [place], [address], [employer] [facility] 02/25/2023 12:11:00 05/29/2023 text/html dermatitis worki ng [...] Hardy MD [address], [place], [address], [employer] [facility] [employer] [facility] 05/29/2023 14:46:05 07/27/2023 text/html Ears feel full a nd painful and she has a little bit vertiginous Jeanette Hardy MD [address], [place], [address], [facility] [employer] [facility] [employer] [facility] 07/28/2023 13:20:50 10/30/2023 text/html AFib no palpitations ulcer colitis no abdominal pain hypertension no headache no dizziness chronic rhinitis struggling through that allergies and she is going to see the sanitary landfill supervisor tomorrow for some testing Jeanette Hardy MD [address], [place], [address], [employer] [facility] [employer] [facility] 10/30/2023 22:24:20 OBGyn Episode No OBEpisode recorded.
--- OUTSIDE RECORDS SUMMARY | 2024-11-19 15:39 | XMS_ITS | Referral Summary ---
Author Organization [facility] [address] [facility] [address] Address [address] [place] [address] Care Team Providers Care Web Analytics Specialist Name Role Phone Tam Hardy MD Primary Care Provider Encounters Date Type Department Care Team Description 10/10/2024 Orders Only [facility] Cardiology [address] [place] [address] ProviderViral MD 10/10/2024 2:00 PM VIDEO LIBRARY ASSISTANT Office Visit [facility] Medical [facility] Cardiology [address] [facility] [address] [place] [address] Talib Sun MD Paroxysmal atrial [...] 05/23 S/P ablation of atrial flutter 06/15/2021 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 Assessment & Plan (09/16/2019 4:11 PM VIDEO LIBRARY ASSISTANT): The patient has a DPS6VY1-NFWv score of 2 (annualized risk of stroke [...] changes to management The patient has a TVM8OL9-HEHg score of 3. She is unable to [...] ECG. Assessment & Plan (09/16/2019 4:10 PM VIDEO LIBRARY ASSISTANT): The patient has symptomatic paroxysmal atrial fibrillation/atrial [...] on file Legal Sex Female 11:40 PM VIDEO LIBRARY ASSISTANT Gender Identity Not on file Sexual Orientation Not on file Last Filed Vital Signs Vital Sign Reading Time Taken Comments Blood Pressure 122/74 10/10/2024 1:53 PM VIDEO LIBRARY ASSISTANT Pulse 88 10/10/2024 1:53 PM VIDEO LIBRARY ASSISTANT Temperature 37 ??C (98.6 ??F) 02/15/2021 9:02 AM CDT Respiratory Rate 18 01/13/2022 10:51 AM CDT Oxygen Saturation 98% 10/10/2024 1:53 PM VIDEO LIBRARY ASSISTANT Inhaled Oxygen Concentration - - Weight 62.6 kg (138 lb) 10/10/2024 1:53 PM VIDEO LIBRARY ASSISTANT Height 160 cm (5' 3 ) 10/10/2024 1:53 PM VIDEO LIBRARY ASSISTANT Body Mass Index 24.45 10/10/2024 1:53 PM VIDEO LIBRARY ASSISTANT Plan of Treatment Not on file Medical Devices Implanted Type Area Barge Captain Device Identifier Shelf Expiration Date Model / Serial / Lot [employer] [id number] System 6-12fr Mvp Venous Closure Vascade - [id number] - [id number] Implanted:Qty: 1 on 02/14/2021 by Ulises Dubose MD at [facility] [employer] 12/13/2022 800-612C-1 0U / [id number] / [id number] [employer] [id number] System 6-12fr Mvp Venous Closure Vascade - [id number] - [id number] Implanted:Qty: 1 on 02/14/2021 by Ulises Dubose MD at [facility] [employer] 12/13/2022 800-612C-1 0U / [id number] / [id number] [id number] [employer] [id number] System 6-12fr Mvp Venous Closure Vascade - [id number] - [id number] Implanted:Qty: 1 on 02/14/2021 by Ulises Dubose MD at [facility] [employer] 12/13/2022 800-612C-1 0U / [id number] / [id number] [id number] [employer] [id number] Vascade 6/7fr Bioabsorbable Vascular System Compression Collagen - [id number] - [id number] Implanted:Qty: 1 on 02/14/2021 by Ulises Dubose MD at [facility] [employer] 11/29/2022 700-580I-0 5U / [id number] / [id number] Procedures Procedure Name Priority Date/Time Associated Diagnosis Comments LIPID PANEL Routine 09/24/2024 3:08 PM VIDEO LIBRARY ASSISTANT from Last 3 Months Results * Lipid panel (09/24/2024 3:08 PM VIDEO LIBRARY ASSISTANT) SCRIBED Cholesterol, Total 158 <200 [facility] SCRIB[facility] HDL 50 >40 [facility] SCRIBED LDL 93 <100 [facility] SCRIBED Triglycerides 65 <150 [facility] Blood us Historical Provider LAB BLOOD ORDERABLES Edit ed Result - Final [facility] from Last 3 Months Insurance MEDICARE [facility] Address: [facility] [address] [place] [address] [facility] MEDICARE [facility] MEDICARE [facility] CHOICE PLUS Advance Directives For more information, please contact: [phone] * Full Code (Latest Code Status on File) Date Activated Date Inactivated Comments 02/14/2021 6:50 PM 02/15/2021 3:17 PM Care Teams Web Analytics Specialist Relationship Specialty Start Date End Date Tam Hardy MD PCP - General Internal Medicine 04/27/17
--- OUTSIDE RECORDS SUMMARY | 2024-11-19 15:39 | XMS_ITS | Clinical Summary ---
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 Assessment & Plan (09/16/2019 4:11 PM RELIGION DEPARTMENT CHAIR): The patient has a MXP8XX2-QZMh score of 2 (annualized risk of stroke [...] changes to management The patient has a FIB5MJ5-SYCr score of 3. She is unable to [...] ECG. Assessment & Plan (09/16/2019 4:10 PM RELIGION DEPARTMENT CHAIR): The patient has symptomatic paroxysmal atrial fibrillation/atrial [...] Department Care Team Description 10/10/2024 2:00 PM RELIGION DEPARTMENT CHAIR Office Visit [facility] Cardiology [address] [place] [address] Talib Sun MD Paroxysmal atrial fibrillation (CMS/HCC) (HCC) (Primary Dx); Pulmonary hypertension (HCC); S/P ablation of atrial flutter; Status post ablation of atrial fibrillation; Palpitations; Benign hypertension 10/10/2024 Orders Only [facility] [facility] Cardiology [address] [place] [address] ProviderViral MD from Last 3 Months Surgical [...] on file Legal Sex Female 11:40 PM RELIGION DEPARTMENT CHAIR Gender Identity Not on file Sexual Orientation Not on file Obstetrics History Last Filed Vital Signs Vital Sign Reading Time Taken Comments Blood Pressure 122/74 10/10/2024 1:53 PM RELIGION DEPARTMENT CHAIR Pulse 88 10/10/2024 1:53 PM RELIGION DEPARTMENT CHAIR Temperature 37 ??C (98.6 ??F) 02/15/2021 9:02 AM CDT Respiratory Rate 18 01/13/2022 10:51 AM CDT Oxygen Saturation 98% 10/10/2024 1:53 PM RELIGION DEPARTMENT CHAIR Inhaled Oxygen Concentration - - Weight 62.6 kg (138 lb) 10/10/2024 1:53 PM RELIGION DEPARTMENT CHAIR Height 160 cm (5' 3 ) 10/10/2024 1:53 PM RELIGION DEPARTMENT CHAIR Body Mass Index 24.45 10/10/2024 1:53 PM RELIGION DEPARTMENT CHAIR Plan of Treatment Health Maintenance Due Date [...] (#1) 2024 Medical Devices Implanted Type Area Presentation Designer Device Identifier Shelf Expiration Date Model / Serial / Lot [employer] [id number] System 6-12fr Mvp Venous Closure Vascade - [id number] - [id number] Implanted:Qty: 1 on 02/14/2021 by Ulises Dubose MD at [facility] [employer] 12/13/2022 800-612C-1 0U / [id number] [id number] / [id number] [id number] [employer] [id number] System 6-12fr Mvp Venous Closure Vascade - [id number] - [id number] Implanted:Qty: 1 on 02/14/2021 by Ulises Dubose MD at [facility] [employer] 12/13/2022 800-612C-1 0U / [id number] / [id number] [id number] [employer] [id number] System 6-12fr Mvp Venous Closure Vascade - [id number] - [id number] Implanted:Qty: 1 on 02/14/2021 by Ulises Dubose MD at [facility] [employer] 12/13/2022 800-612C-1 0U / [id number] / [id number] [employer] [id number] Vascade 6/7fr Bioabsorbable Vascular System Compression Collagen - [id number] - [id number] Implanted:Qty: 1 on 02/14/2021 by Ulises Dubose MD at [facility] [employer] 11/29/2022 700-580I-0 5U / [id number] / [id number] Procedures Procedure Name Priority Date/Time Associated Diagnosis Comments LIPID PANEL Routine 09/24/2024 3:08 PM RELIGION DEPARTMENT CHAIR from Last 3 Months Results * Lipid panel (09/24/2024 3:08 PM RELIGION DEPARTMENT CHAIR) SCRIBED Cholesterol, Total 158 <200 [facility] SCRIBED HDL 50 >40 [facility] SCRIBED LDL 93 <100 [facility] SCRIBED Triglycerides 65 <150 [facility] Blood us Historical Provider LAB BLOOD ORDERABLES Edit ed Result - Final [facility] from Last 3 Months Insurance MEDICARE [facility] MEDICARE [employer] [place] MEDICARE [facility] [place] [facility] CHOICE PLUS [facility] Address: [facility] [address] [phone] Advance Directives For more information, please contact: [phone] * Full Code (Latest Code Status on File) Date Activated Date Inactivated Comments 02/14/2021 6:50 PM 02/15/2021 3:17 PM Care Teams Instrumentation And Controls Technician Relationship Specialty Start Date End Date Tam Hardy MD PCP - General Internal Medicine 04/27/17
--- OUTSIDE RECORDS SUMMARY | 2024-11-19 15:39 | XMS_ITS | Encounter Summary ---
Author Organization [facility] Address 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
--- OUTSIDE RECORDS SUMMARY | 2024-11-19 15:39 | XMS_ITS | Clinical Summary ---
Author Organization [facility] Address [address] [facility] [place] [address] Care Team Providers Care Software Configuration Analyst Name Role Phone Tam Hardy MD Primary Care Provider [phone] Source Comments [facility],non-owned Affiliates and Associated Physician Practices is amultiple site organization consisting of ambulatory clinics and hospital sitesin [place] and [place]. This disclosure is being madepursuant to the Care Everywhere program and may not contain all information available regarding this patient. Last updated 18.[facility] Allergies No known active allergies Medications * [...] azelastine (ASTELIN) 137 MCG/SPRAY nasal sprayIndications:Rhin itis [place] 1 [place] into each nostril 2 times daily. 1 [...] 12/01/2009 HEPATITIS SCREEN ACUTE 09/09/2008 8:39 AM NAILER MACHINE from Last 3 Months or Most Recently Relevant to Health Maintenance Results * (ABNORMAL) LIPID PROFILE (03/30/2011 11:20 AM CDT) Cholesterol 146 125 - 200 mg/dL [facility] Comment: Test Performed at: [facility] [address] [place], [place] ??[phone] SUZE HUFFMAN DO,MPH HDL Cholesterol 40(L) > [...] CDT Drew Dickens MD [facility] Organization Address City/State/ZIP Co de Phone Number [facility] [address] [place] [address] * ENDOSCOPY, COLON, SCREENING (12/01/2009) Drew Dickens MD GI PROCEDURE ORDERAB LES * HEPATITIS SCREEN ACUTE (09/09/2008 8:39 AM NAILER MACHINE) Hepatitis A Virus Antibody IgM NON-REACT [place]OR[place] NON - REACTIVE [facility] Comment: Test Performed at: [facility] [address] [facility] [place] ??[phone] SUZE ARROYO MD Hepatitis B Virus Surface Antigen NON-REACT [place]OR[place] NON - REACTIVE [facility] Hepatitis B Core Virus Antibody IgM NON-REACT [place]OR[place] NON - REACTIVE [facility] Hepatitis C Antibody NON-REACT [place] NON - REACTIVE [facility] Signal to Cut-Off 0.25 <1.00 [facility] 09/09/2008 8:39 AM NAILER MACHINE 09/09/2008 5:29 PM NAILER MACHINE Drew Dickens MD LAB - CHEMISTRY [facility] Organization Address City/State/ZIP Co de Phone Number [facility] [phone] [place] [address] from Last 3 Months or Most Recently Relevant to Health Maintenance Care Teams Software Configuration Analyst Relationship Specialty Start Date End Date Tam Hardy MD PCP - General 07/09/21
--- OUTSIDE RECORDS SUMMARY | 2024-11-19 15:39 | XMS_ITS | Continuity of Care Document ---
Author Organization [facility] Address [address] [place] [address] [address] [place] [address] Phone Care Team Providers Care Art Preparator Name Role Phone Leona Freed Unavailable Unavailable Procedures Procedure Date Office/outpatient Visit, [facility] Advance Directives Directive Yes / No Effective Date File Name No Information Encounters Encounter Description Practice Location Reason(s) For Visit Diagnoses Date Provider Providers Copied on Encounter Office/outpat ient Visit, [facility], [address] [place] [address] [address], [place], [place], [id number], [place] tel:[phone] [facility] No Information [address]. [address] , [address], [place], [address], [place]. tel:[phone] Family History Family Member Type Diagnosis Age [...]
--- OUTSIDE RECORDS SUMMARY | 2024-11-19 15:39 | XMS_ITS | Encounter Summary ---
Author Organization [facility] Address [address] [place] [address] Care Team Providers Care Business Process Expert Name Role Phone Narinder Lozano DO Primary Care Provider Reason for Visit * Reason Comments Medication Refill Encounter Details Date Type Department Care Team (Late st Contact Info) Description 03/29/2017 Refill [facility] GASTROENTEROLOGY [address] [address] Ramon Vasquez MD [address] [place] [address] [place] [address] Social History Tobacco Use Types Packs/Day Years Used Date Smoking Tobacco: Never Smokeless Tobacco: Never Alcohol Use Standard Drinks/Week Comments Yes 0 (1 standard drink = 0.6 oz pur e alcohol) Comments Unknown Sex and Gender Information Value Date Recorded Sex Assigned at Not on file Legal Sex Female 5:03 AM 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
--- OUTSIDE RECORDS SUMMARY | 2024-11-19 15:39 | XMS_ITS | Encounter Summary ---
Author Organization [facility] Address [address] [place] [address] Care Team Providers Care Supervisor Core Drilling Name Role Phone Narinder Lozano DO Primary Care Provider Reason for Visit * Reason Comments Medication Refill Encounter Details Date Type Department Care Team (Late st Contact Info) Description 12/25/2016 Refill [facility] GASTROENTEROLOGY [address] [address] Ramon Vasquez MD [address] [place] [address] [place] [address] Social History Tobacco Use Types Packs/Day Years Used Date Smoking Tobacco: Never Smokeless Tobacco: Never Alcohol Use Standard Drinks/Week Comments Yes 0 (1 standard drink = 0.6 oz pur e alcohol) Comments Unknown Sex and Gender Information Value Date Recorded Sex Assigned at Not on file 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
--- OUTSIDE RECORDS SUMMARY | 2024-11-19 15:39 | XMS_ITS | Encounter Summary ---
Author Organization [facility] Address [address] [place] [address] Care Team Providers Care Tufting Creeler Name Role Phone Narinder Lozano DO Primary Care Provider Reason for Visit * Reason Comments Medication Refill Encounter Details Date Type Department Care Team (Late st Contact Info) Description 10/26/2016 Refill [facility] GASTROENTEROLOGY [address] [address] Ramon Vasquez MD [address] [place] [address] [place] [address] Social History Tobacco Use Types Packs/Day Years Used Date Smoking Tobacco: Never Smokeless Tobacco: Never Alcohol Use Standard Drinks/Week Comments Yes 0 (1 standard drink = 0.6 oz pur e alcohol) Comments Unknown Sex and Gender Information Value Date Recorded Sex Assigned at Not on file 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
--- OUTSIDE RECORDS SUMMARY | 2024-11-19 15:39 | XMS_ITS | Encounter Summary ---
Author Organization [facility] Address 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
--- OUTSIDE RECORDS SUMMARY | 2024-11-19 15:39 | XMS_ITS | Referral Summary ---
Author Organization [facility] Address [address] [place] [address] Care Team Providers Care Wharf Tender Name Role Phone Tam Hardy MD Primary Care Provider [phone] Source Comments [facility],non-owned Affiliates and Associated Physician Practices is amultiple site organization consisting of ambulatory clinics and hospital sitesin [place], [place], [place] and [place]. This disclosure is being madepursuant to the Care Everywhere program and may not contain all information available regarding this patient. Last updated 18.[facility] Allergies No known active allergies Medications * [...] azelastine (ASTELIN) 137 MCG/SPRAY nasal sprayIndications:Rhin itis [place] 1 [place] into each nostril 2 times daily. 1 [...] 12/01/2009 HEPATITIS SCREEN ACUTE 09/09/2008 8:39 AM AIR TUBE RELEASER from Last 3 Months or Most Recently Relevant to Health Maintenance Results * (ABNORMAL) LIPID PROFILE (03/30/2011 11:20 AM CDT) Cholesterol 146 125 - 200 mg/dL [facility] Comment: Test Performed at: [facility] [address] [place], [place] ??[address] SUZE HUFFMAN DO,MPH HDL Cholesterol 40(L) > [...] Dickens MD LAB - CHEMISTRY [facility]Y J[facility] Organization Address City/State/ZIP Co de Phone Number [facility] [address] [place] [address] * ENDOSCOPY, COLON, SCREENING (12/01/2009) Drew Dickens MD GI PROCEDURE ORDERAB LES * HEPATITIS SCREEN ACUTE (09/09/2008 8:39 AM AIR TUBE RELEASER) Hepatitis A Virus Antibody IgM NON-REACT FLORIN NON - REACTIVE [facility] Comment: Test Performed at: [facility] [id number] [place] [address] ??[phone] SUZE ARROYO MD Hepatitis B Virus Surface Antigen NON-REACT FLORIN NON - REACTIVE [facility] Hepatitis B Core Virus Antibody IgM NON-REACT [place]OR[place] NON - REACTIVE [facility] Hepatitis C Antibody NON-REACT [place]OR[place] NON - REACTIVE [facility] Signal to Cut-Off 0.25 <1.00 [facility] 09/09/2008 8:3 9 AM AIR TUBE RELEASER 09/09/2008 5:29 PM AIR TUBE RELEASER Drew Dickens MD LAB - CHEMISTRY [facility] Organization Address City/State/[email or web address]] Co de Phone Number [facility] [phone] [place] [address] from Last 3 Months or Most Recently Relevant to Health Maintenance Care Teams Wharf Tender Relationship Specialty Start Date End Date Tam Hardy MD PCP - General 07/09/21
--- OUTSIDE RECORDS SUMMARY | 2024-11-19 15:39 | XMS_ITS | Encounter Summary ---
Author Organization [facility] Address [address] [place] [address] Care Team Providers Care Server Name Role Phone Narinder Lozano DO Primary Care Provider Reason for Visit * Reason Comments Medication Refill Encounter Details Date Type Department Care Team (Late st Contact Info) Description 08/03/2017 Refill [facility] GASTROENTEROLOGY [address] [address] Ramon Vasquez MD [address] [place] [address] [place] [address] Social History Tobacco Use Types Packs/Day Years Used Date Smoking Tobacco: Never Smokeless Tobacco: Never Alcohol Use Standard Drinks/Week Comments Yes 0 (1 standard drink = 0.6 oz pur e alcohol) Comments Unknown Sex and Gender Information Value Date Recorded Sex Assigned at Not on file 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
--- OUTSIDE RECORDS SUMMARY | 2024-11-19 15:39 | XMS_ITS | Encounter Summary ---
Author Organization [facility] Address [address] [place] [address] Care Team Providers Care Sweetbread Trimmer Name Role Phone Narinder Lozano DO Primary Care Provider Encounter Details Date Type Department Care Team (Late st Contact Info) Description 06/02/2004 Outpatient Historical [facility] Support [facility] (Adt Cardiology[facility]) [address] 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
--- OUTSIDE RECORDS SUMMARY | 2024-11-19 15:40 | XMS_ITS | Clinical Summary ---
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 Gender Identity Not on file Sexual Orientation Not on file Last Filed Vital Signs Vital Sign Reading Time Taken Comments Blood Pressure 158/80 09/04/2016 3:44 PM CHASSIS INSPECTOR Pulse - - Temperature - - Respiratory Rate - - Oxygen Saturation - - Inhaled Oxygen Concentration - - Weight 69.5 kg (153 lb 3.2 oz) 09/04/2016 3:44 P M CHASSIS INSPECTOR Height 162.6 cm (5' 4 ) 09/04/2016 3:44 PM CHASSIS INSPECTOR Body Mass Index 26.3 09/04/2016 3:44 PM CHASSIS INSPECTOR Plan of Treatment Health Maintenance Due Date [...] (1 - 1-dose 75+ series) 2029 Insurance [facility] [id number] Care Teams Applied Statistician Relationship Specialty Start Date End Date Narinder Lozano DO PCP - General Internal Medicine 09/04/16
--- OUTSIDE RECORDS SUMMARY | 2024-11-19 15:40 | XMS_ITS | Data Portability ---
Author Organization [facility] Address [address] [place] [address] Assessment Encounter Date Assessment Date Assessment LastModified by Organization Details LastModified Time 02/25/2024 02/25/2024 Will continue current therapy blood work has been ordered x-ray of the neck has been ordered. All questions answered with regards to diagnosis and the assessment and plan follow-up in 4 months [email or web address] Not available 03/08/2024 17:58:08 08/25/2024 08/25/2024 Augmentin [...] colonoscopy that has been ordered by her head control clerk. Not available 08/31/2024 18:17:52 Plan of Treatment Reminders Order Date Submit Date Provider Last Modified By Organization Details Last Modified Time Details Appointments ANY 15 2024 10:30A M Tam Hardy MD Not available Not available Not available Lab CBC w/ auto diff 2023 024 [facility], [address], [address], [place], [address], 03/01/2024 06:37:03 lipid panel, serum 2023 024 [facility], [address], [place], [address], 03/01/2024 06:37:02 CMP, serum or plasma 2023 024 [facility], [address] [facility] [address], [place], [address], 03/01/2024 06:37:03 lipid panel, serum 2023 024 [facility], [address], [place], [address], 09/25/2024 09:55:22 CBC w/ auto diff 2023 024 [facility], [address], [place], [address], 11/04/2024 15:06:48 CMP, serum or plasma 2023 024 [facility], [address], [place], [address], 11/04/2024 15:06:48 Referral None recorded. Procedures None recorded. Surgeries None recorded. Imaging XR, cervical spine 2023 [facility], [address], [place], [address], 03/02/2024 13:34:51 Medication Orders Augmentin 875 mg-125 mg tablet 2023 024 [id number], [address] , [place], [address], 08/25/2024 17:47:37 Patient TargetsNo targets recorded. Patient Instructions Encounter Date Encounter Id Patient Instructions Last Modified By Organization Details Last Modified Time 08/25/2024 [id number] A healthy lifestyle: care instructions [email or web address] Not available 08/25/2024 17:47:37 Reason for Referral None Reported. Results Created Date Observation Date Name Description Value Unit Range Abnormal Flag Note LastModifiedBy Organization Detail LastModifiedTime 02/29/20 24 03/01/2024 LIPID PANEL cholesterol, total 160 mg/dL 100-19 9 Not Available [facility] ([facility]) [address] [facility] [place], [address], 03/01/2024 06:37:02 02/29/20 24 03/01/2024 LIPID PANEL triglyceride s 114 mg/dL 0-149 Not Available [facility] ([facility]) [address] [facility] [place], [address], 03/01/2024 06:37:02 02/29/20 24 03/01/2024 LIPID PANEL HDL cholesterol 47 mg/dL >39 Not Available [facility]) [address] [facility] [place], [address], 03/01/2024 06:37:02 02/29/20 24 03/01/2024 LIPID PANEL VLDL cholesterol mason 21 mg/dL 5-40 Not Available [facility] ([facility]) [address] [facility] [place], [address], 03/01/2024 06:37:02 02/29/20 24 03/01/2024 LIPID PANEL LDL chol calc ([facility]) 92 mg/dL 0-99 Not Available [facility] ([facility]) [address] [facility] [place], [address], 03/01/2024 06:37:02 02/29/20 24 03/01/2024 COMP. METAB OLIC PANEL (14) glucose 94 mg/dL 70-99 Not Available [facility] ([facility]) [address] [facility] [place], [address], 03/01/2024 06:37:03 02/29/20 24 03/01/2024 COMP. METAB OLIC PANEL (14) BUN 15 mg/dL 8-27 Not Available [facility] ([facility]) [address] [place], [address], 03/01/2024 06:37:03 02/29/20 24 03/01/2024 COMP. METAB OLIC PANEL (14) creatinine 0.76 mg/dL 0.57-1 .00 Not Available [facility] ([facility]) [address] [facility], [place], [address], 03/01/2024 06:37:03 02/29/20 24 03/01/2024 COMP. METAB OLIC PANEL (14) eGFR 85 mL/mi n/1.7 3 >59 Not Available [facility] ([facility]) [address] [facility], [place], [address], 03/01/2024 06:37:03 02/29/20 24 03/01/2024 COMP. METAB OLIC PANEL (14) BUN/creatini ne ratio 20 12-28 Not Available [facility] ([facility]) [address] [facility], [place], [address], 03/01/2024 06:37:03 02/29/20 24 03/01/2024 COMP. METAB OLIC PANEL (14) sodium 138 mmol/ L 134-14 4 Not Available [facility] ([facility]) [address] [place], [address], 03/01/2024 06:37:03 02/29/20 24 03/01/2024 COMP. METAB OLIC PANEL (14) potassium 4.6 mmol/ L 3.5-5. 2 Not Available [facility] ([facility]) [address] [facility], [place], [address], 03/01/2024 06:37:03 02/29/20 24 03/01/2024 COMP. METAB OLIC PANEL (14) chloride 101 mmol/ L 96-106 Not Available [facility] ([facility]) [address] [facility], [place], [address], 03/01/2024 06:37:03 02/29/20 24 03/01/2024 COMP. METAB OLIC PANEL (14) carbon dioxide, total 24 mmol/ L 20-29 Not Available [facility] ([facility]) [address] [facility] [place], [address], 03/01/2024 06:37:03 02/29/20 24 03/01/2024 COMP. METAB OLIC PANEL (14) calcium 10.0 mg/dL 8.7-10 .3 Not Available [facility] ([facility]) [address] [facility], [place], [address], 03/01/2024 06:37:03 02/29/20 24 03/01/2024 COMP. METAB OLIC PANEL (14) protein, total 7.2 g/dL 6.0-8. 5 Not Available [facility] ([facility]) [address] [facility], [place], [address], 03/01/2024 06:37:03 02/29/20 24 03/01/2024 COMP. METAB OLIC PANEL (14) albumin 4.5 g/dL 3.9-4. 9 Not Available [facility] ([facility]) [address] [facility] [place], [address], 03/01/2024 06:37:03 02/29/20 24 03/01/2024 COMP. METAB OLIC PANEL (14) globulin, total 2.7 g/dL 1.5-4. 5 Not Available [facility] ([facility]) [address] [facility] [place], [address], 03/01/2024 06:37:03 02/29/20 24 03/01/2024 COMP. METAB OLIC PANEL (14) A/G ratio 1.7 1.2-2. 2 Not Available [facility] ([facility]) [address] [facility] [place], [address], 03/01/2024 06:37:03 02/29/20 24 03/01/2024 COMP. METAB OLIC PANEL (14) bilirubin, total 0.6 mg/dL 0.0-1. 2 Not Available [facility] ([facility]) [address] [facility] [place], [address], 03/01/2024 06:37:03 02/29/20 24 03/01/2024 COMP. METAB OLIC PANEL (14) alkaline phosphatase 76 IU/L 44-121 Not Available [facility] ([facility]) [address] [facility] [place], [address], 03/01/2024 06:37:03 02/29/20 24 03/01/2024 COMP. METAB OLIC PANEL (14) AST (SGOT) 19 IU/L 0-40 Not Available [facility] ([facility]) [address] [facility] [place], [address], 03/01/2024 06:37:03 02/29/20 24 03/01/2024 COMP. METAB OLIC PANEL (14) ALT (SGPT) 11 IU/L 0-32 Not Available [facility] ([facility]) [address] [place], [address], 03/01/2024 06:37:03 02/29/20 24 03/01/2024 CBC WITH DIFFE RENTI AL/PL ATELE T WBC 6.3 x10e3 /uL 3.4-10 .8 Not Available [facility] ([facility]) [address] [place], [address], 03/01/2024 06:37:03 02/29/20 24 03/01/2024 CBC WITH DIFFE RENTI AL/PL ATELE T RBC 4.34 x10e6 /uL 3.77-5 .28 Not Available [facility] ([facility]) [address] [place], [address], 03/01/2024 06:37:03 02/29/20 24 03/01/2024 CBC WITH DIFFE RENTI AL/PL ATELE T hemoglobin 13.2 g/dL 11.1-1 5.9 Not Available [facility] ([facility]) [address] [facility], [place], [address], 03/01/2024 06:37:03 02/29/20 24 03/01/2024 CBC WITH DIFFE RENTI AL/PL ATELE T hematocrit 38.4 % 34.0-4 6.6 Not Available [facility] ([facility]) [address] [facility], [place], [address], 03/01/2024 06:37:03 02/29/20 24 03/01/2024 CBC WITH DIFFE RENTI AL/PL ATELE T MCV 89 fL 79-97 Not Available [facility] ([facility]) [address] [facility], [place], [address], 03/01/2024 06:37:03 02/29/20 24 03/01/2024 CBC WITH DIFFE RENTI AL/PL ATELE T MCH 30.4 pg 26.6-3 3.0 Not Available [facility] ([facility]) [address] [facility], [place], [address], 03/01/2024 06:37:03 02/29/20 24 03/01/2024 CBC WITH DIFFE RENTI AL/PL ATELE T MCHC 34.4 g/dL 31.5-3 5.7 Not Available [facility] ([facility]) [address] [facility], [place], [address], 03/01/2024 06:37:03 02/29/20 24 03/01/2024 CBC WITH DIFFE RENTI AL/PL ATELE T RDW 12.5 % 11.7-1 5.4 Not Available [facility] ([facility]) [address] [place], [address], 03/01/2024 06:37:03 02/29/20 24 03/01/2024 CBC WITH DIFFE RENTI AL/PL ATELE T platelets 269 x10e3 /uL 150-45 0 Not Available [facility] ([facility]) [address] [facility], [place], [address], 03/01/2024 06:37:03 02/29/20 24 03/01/2024 CBC WITH DIFFE RENTI AL/PL ATELE T neutrophils 61 % notest ab. Not Available [facility] ([facility]) [address] [facility], [place], [address], 03/01/2024 06:37:03 02/29/20 24 03/01/2024 CBC WITH DIFFE RENTI AL/PL ATELE T lymphs 27 % notest ab. Not Available [facility] ([facility]) [address] [facility], [place], [address], 03/01/2024 06:37:03 02/29/20 24 03/01/2024 CBC WITH DIFFE RENTI AL/PL ATELE T monocytes 7 % notest ab. Not Available [facility] ([facility]) [address] [facility], [place], [address], 03/01/2024 06:37:03 02/29/20 24 03/01/2024 CBC WITH DIFFE RENTI AL/PL ATELE T eos 4 % notest ab. Not Available [facility] ([facility]) [address] [facility], [place], [address], 03/01/2024 06:37:03 02/29/20 24 03/01/2024 CBC WITH DIFFE RENTI AL/PL ATELE T basos 1 % notest ab. Not Available [facility] ([facility]) [address] [facility], [place], [address], 03/01/2024 06:37:03 02/29/20 24 03/01/2024 CBC WITH DIFFE RENTI AL/PL ATELE T neutrophils (absolute) 3.9 x10e3 /uL 1.4-7. 0 Not Available [facility] ([facility]) [address] [facility], [place], [address], 03/01/2024 06:37:03 02/29/20 24 03/01/2024 CBC WITH DIFFE RENTI AL/PL ATELE T lymphs (absolute) 1.7 x10e3 /uL 0.7-3. 1 Not Available [facility] ([facility]) [address] [facility], [place], [address], 03/01/2024 06:37:03 02/29/20 24 03/01/2024 CBC WITH DIFFE RENTI AL/PL ATELE T monocytes(ab solute) 0.4 x10e3 /uL 0.1-0. 9 Not Available [facility] ([facility]) [address] [facility], [place], [address], 03/01/2024 06:37:03 02/29/20 24 03/01/2024 CBC WITH DIFFE RENTI AL/PL ATELE T eos (absolute) 0.2 x10e3 /uL 0.0-0. 4 Not Available [facility] ([facility]) [address] [facility], [place], [address], 03/01/2024 06:37:03 02/29/20 24 03/01/2024 CBC WITH DIFFE RENTI AL/PL ATELE T baso (absolute) 0.1 x10e3 /uL 0.0-0. 2 Not Available [facility] ([facility]) [address] [facility], [place], [address], 03/01/2024 06:37:03 02/29/20 24 03/01/2024 CBC WITH DIFFE RENTI AL/PL ATELE T immature granulocytes 0 % notest ab. Not Available [facility] ([facility]) [address] [facility], [place], [address], 03/01/2024 06:37:03 02/29/20 24 03/01/2024 CBC WITH DIFFE RENTI AL/PL ATELE T immature grans (abs) 0.0 x10e3 /uL 0.0-0. 1 Not Available [facility] ([facility]) [address], [place], [address], 03/01/2024 06:37:03 03/02/20 24 02/29/2024 XR, cervi mason spine No observ ation record ed. [facility] [address], [place], [address], 03/05/2024 11:40:07 03/15/20 24 03/15/2024 MRI, cervi mason spine , w/o contr ast No observ ation record ed. [facility] [address], [place], [address], 03/25/2024 14:25:36 09/16/20 24 09/16/2024 MAMMO , scree francis, digit al, bilat eral No observ ation record ed. [email or web address] [facility] [address], [place], [address], 09/17/2024 08:56:23 10/03/20 24 10/03/2024 MRI, shoul adebayo, w/o contr ast No observ ation record ed. [facility] [address], [place], [address], 10/03/2024 14:20:07 Result Notes None recorded. Problems Name Problem SNOMED Code Status Onset Date Resolution Date Notes Provider Name and Address Organization Details Recorded Time Essential hypertension 36672876 Active 2023 Samm Covarrubias MA null, [place] [facility] 4 12:51:24 Neck pain 40755038 Active 2023 Samm Covarrubias [place], [place] [facility] 4 12:51:25 Ulcerative colitis 14135663 Active 2023 Tam Hardy MD Attn: Danielajeronimo campos,[address], [place], [address] [place] [facility] 4 17:56:55 Atrial fibrillation 09029469 Active 2023 Tam Hardy MD Attn: Michelle campos,[address], [place], [address], [place] [facility] 4 17:56:58 Osteopenia 090064639 Active 2023 Tam Hardy MD Attn: Michelle campos,[address], [place], [address], [place] [facility] 4 17:57:00 Vitamin D deficiency 08005856 Active 2023 Tam Hardy MD Attn: Michelle campos,[address], [place], [address], [place] [facility] 4 17:57:58 Sinusitis 97168414 Active 2023 Samm Covarrubias [place] null, [place] [facility] 14:20:37 Problem Notes None recorded. Procedures Surgical History None recorded. Imaging Results Imaging Date Name Status LastModified by Organiz ation Details LastModified Time 02/29/2024 XR, cervical spine completed [facility] [address], [place], [address], 03/05/2024 11:40:07 03/15/2024 MRI, cervical spine, w/o contrast completed [facility] [address], [place], [address], 03/25/2024 14:25:36 09/16/2024 MAMMO, screening, digital, bilateral completed [address], [place], [address], 09/17/2024 08:56:23 10/03/2024 MRI, shoulder, w/o contrast completed [place] [address], [place], [address], 10/03/2024 14:20:07 Procedure Notes None recorded. Medical Equipment None Reported. Allergies Allergen ID Allergen Name Allergen Category Reaction Reaction Severity Criticality Documentation Date Start Date Code Code System Note Provider Name and Address Organization Details Recorded Time [id number] 1795630g1 2824e Substance with sulfonami de structure and antibacte rial mechanism of action (substanc e) medicatio n Not available Not available Not available 02/25/2024 55815 8003 SNOMED Not Available Not Available Not [...] DateTime 02/25/2024 161.29 cm Charmaine Coon MA [facility] 02/24 12:15:05 Date Recorded Body mass index (BMI) Body weight Provider Name and Address Organization Details Last Updated DateTime 02/25/2024 24.2 kg/m2 17463.34 g Charmaine Coon MA [facility] 02/25/2024 12:15:08 Date Recorded Heart rate Provider Name an d Address Organization Details Last Updated DateTime 02/25/2024 79 /min Charmaine Coon MA [facility] 02/24 12:19:42 Date Recorded Oxygen saturation Oxygen saturation in Arterial blood by Pulse oximetry Provider Name and Address Organization Details Last Updated DateTime 02/25/2024 99 % 99 % Charmaine Coon MA [facility] 02/25/2024 12:19:44 Date Recorded Body height Provider Name an d Address Organization Details Last Updated DateTime 08/25/2024 161.29 cm Myrna Sifuentes MA [facility] 12:19:07 Date Recorded Body mass index (BMI) Body weight Provider Name and Address Organization Details Last Updated DateTime 08/25/2024 24 kg/m2 94937.67 g Myrna Sifuentes MA [facility] 12:23:16 Date Recorded Oxygen saturation Oxygen saturation in Arterial blood by Pulse oximetry Provider Name and Address Organization Details Last Updated DateTime 08/25/2024 98 % 98 % Myrna Sifuentes MA [facility] 08/25/2024 12:27:24 Date Recorded Heart rate Provider Name an d Address Organization Details Last Updated DateTime 08/25/2024 85 /min Myrna Sifuentes MA [facility] 12:27:35 Date Recorded Systolic blood pressure Diastolic blood pressure Provider Name and Address Organization Details Last Updated DateTime 02/25/2024 128 mm[Hg] 76 mm[Hg] Charmaine Coon MA [facility] 02/25/2024 12:19:40 Date Recorded Systolic blood pressure Diastolic blood pressure Provider Name and Address Organization Details Last Updated DateTime 08/25/2024 120 mm[Hg] 62 mm[Hg] Myrna Sifuentes MA [facility] 08/25/2024 12:27:40 Social History Question Answer Notes LastModified by Organizat ion Details LastModified Time Tobacco Smoking Status Never Smoker Charmaine Coon MA null, [facility] 02/25/2024 12:17:59 What Is Your Level Of [...] Anxious, Or Unable To Sleep At Night)? [id number] Information not available 02/25/2024 Do You Use [...] SNOMED-CT Code Diagnosis ICD10 Code Diagnosis Note [id number] Tam Hardy MD [facility] [address] [place] [address] 02/25/2024 11:53:24 02/25/2024 12:52:59 Essential hypertension 49035051 I10 Neck pain 79641827 M54.2 Ulcerative colitis 04172 004 K51.90 Atrial fibrillation 4943 6004 I48.91 Osteopenia 232025248 M85 .80 Vitamin D deficiency 347 27358 E55.9 [id number] Tam Hardy MD [facility] [address] [email or web address] [address] 08/25/2024 11:52:08 08/25/2024 14:35:50 Body mass index 20-24 - normal 920275768 Z68.24 Sinusitis 92206933 J32.9 Essential hypertension 45151192 I10 Ulcerative colitis 11992 004 K51.90 Vitamin D deficiency 347 10536 E55.9 Health Concerns Section Related Observation LastModified by Organization Detai ls LastModified Time None Recorded Concern Status LastModified by Organization Details LastModified Time None Recorded Advance Directives Directive None Recorded Payers Encounter Date Sequence Insurance Name Policy Number Policy Gomez Covered Member ID Gomez Member ID Guarantor Name 02/25/2024 1 MEDICARE-[place] (MEDICARE) Anny Valladares [id number] Anny Valladares 02/25/2024 2 [employer] (MEDICARE SUPPLEMENT) Anny Valladares [id number] Anny Valladares 08/25/2024 2 [employer] (MEDICARE SUPPLEMENT) Anny Valladares [id number] Anny Valladares 08/25/2024 [place] - [place] - [facility] Anny Valladares [id number] Anny Valladares Notes Date Note Type Note Provider Name and Address Organization Details Recorded Time 02/25/2024 text/html Is a 8-year-old for follow-up of her medical problems of ulcerative colitis hypertension A-fib status post ablation chronic sinus problems and osteopenia only new issues she has got a little bit of neck pain and hurts when she turns her from [id number] feels stiff at times without any trauma and no radicular symptoms Tam Hardy MD Attn: [address] [facility], [place], [address], [facility] 03/08/2024 17:58:57 08/25/2024 text/html hypertension no headache or dizziness. 2. Sinuses flared up with yellowish discharge and pressure. 3. Ulcerative colitis she has not had any abdominal pain diarrhea or blood in stool. 4. Low vitamin-D level she does take supplementation there was no muscle or bone pain Tam Hardy MD Attn: [address] [facility], [place], [address], [facility] 08/31/2024 18:18:33 OBGyn Episode No OBEpisode recorded.
== END 2024-11-19 14:49 | disposition home or self-care (01) ==
PROVIDERS: PCP Internal Medicine; Visit Provider Obstetrics & Gynecology Gynecology
DX: M81.0 Age-related osteoporosis without current pathological fracture (principal); M85.89 Other specified disorders of bone density and structure, multiple sites
CPT/HCPCS: 77080

== ENCOUNTER 2025-03-30 12:58 | Outpatient (CLI) | payer MEDICARE, OTHER, SELFPAY ==
--- NOTE | ~2025-03-30 | MR_ITS ---
MRI of the lumbar spine Clinical History: Radiculopathy Technique: Axial T2-weighted images, and sagittal T1-weighted, T2-weighted, and T2 fat-sat images wer e acquired. Findings: No fracture identified. There is a 5-6 mm anterolisthesis of L4 over L5. No suspicious bone marrow signal abnormality seen. At L1-L2, there is moderate degenerative disc narrowing. There is minimal disc bulge and mild facet a rthropathy. No central canal stenosis. There is mild to moderate right neural foraminal narrowing. Le ft neural foramen preserved. At L2-L3, there is minimal disc bulge with mild facet arthropathy. No central canal stenosis. There i s minimal right neural foraminal narrowing. Left neural foramen preserved. At L3-L4, there is advanced degenerative disc narrowing. There is mild disc bulge and moderate to adv anced facet arthropathy. No central canal stenosis. There is moderate to advanced bilateral neural fo raminal narrowing. At L4-L5, there is advanced degenerative disc disease. There is disc bulge/uncovering with severe fac et arthropathy. No central canal stenosis. There is advanced left neural foraminal narrowing, and mil d right neural foraminal narrowing. At L5-S1, there is advanced degenerative disc narrowing. There is diffuse disc bulge with moderate fa cet arthropathy. No central canal stenosis. There is severe left neural foraminal compromise, and mod erate to advanced right neural foraminal compromise. Paravertebral soft tissues are unremarkable. Impression: Moderate to advanced degenerative spondylosis, as above, with multilevel neural foraminal narrowing a nd degenerative disc changes. No joey spinal canal stenosis. 5-6 mm anterolisthesis of L4 over L5. Reviewed, dictated and finalized at [facility]. Impression: Moderate to advanced degenerative spondylosis, as above, with multilevel neural foraminal narrowing and degenerative disc changes. No joey spinal canal steno sis. 5-6 mm anterolisthesis of L4 over L5.
--- NOTE | ~2025-03-30 | MR_ITS ---
MRI of the cervical spine Clinical History: Cervicalgia Technique: Axial T2-weighted and gradient images, and sagittal T1-weighted, T2-weighted, and STIR dorcas ges were acquired. Findings: There is no fracture in the cervical spine. There is 3 mm retrolisthesis of C5 over C6. No suspicious bone marrow signal abnormality seen. At C2-C3 and C3-C4, there is no disc bulge or herniation. No spinal canal stenosis, cord compression, or neural foraminal narrowing at these levels. At C4-C5, there is degenerative disc narrowing with mild disc bulge and mild facet arthropathy. Proba ble minimal bilateral neural foraminal narrowing, left worse than right. There is minimal canal steno sis without joey cord compression. At C5-C6, there is advanced degenerative disc narrowing. There is disc ossify complex with mild to mo derate canal stenosis and minimal flattening the ventral cord. There is advanced bilateral neural for aminal narrowing. At C6-C7, there is advanced degenerative disc narrowing. There is minimal disc bulge. No joey canal stenosis or cord compression. There is probable bilateral neural foraminal narrowing. No abnormal signal seen in the spinal cord. Paravertebral soft tissues are unremarkable. Impression: Moderate degenerative spondylosis, especially at C5-C6 and C6-C7, as detailed above. 3 mm retrolisthesis of C5 over C6. Reviewed, dictated and finalized at [facility]. Impression: Moderate degenerative spondylosis, especially at C5-C6 and C6-C7, as detailed a julieta. 3 mm retrolisthesis of C5 over C6.
== END 2025-03-30 12:59 | disposition home or self-care (01) ==
LOC: GOSHIMG 12:59
PROVIDERS: PCP Internal Medicine; Visit Provider Nurse Practitioner Family
DX: M47.816 Spondylosis without myelopathy or radiculopathy, lumbar region (principal); M47.812 Spondylosis without myelopathy or radiculopathy, cervical region; M47.817 Spondylosis without myelopathy or radiculopathy, lumbosacral region; M43.12 Spondylolisthesis, cervical region; M48.061 Spinal stenosis, lumbar region without neurogenic claudication; M48.07 Spinal stenosis, lumbosacral region; M51.369 Other intervertebral disc degeneration, lumbar region without mention of lumbar back pain or lower extremity pain; M51.379 Other intervertebral disc degeneration, lumbosacral region without mention of lumbar back pain or lower extremity pain
CPT/HCPCS: 72141; 72148

== ENCOUNTER 2025-05-20 11:28 | Outpatient (CLI) | payer MEDICARE, OTHER, SELFPAY ==
--- NOTE | ~2025-05-20 | CT_ITS ---
EXAMINATION: CT sinus wo con DATE: 05/20/2025 11:43 INDICATION: Sinusitis TECHNIQUE: Computed tomography (CT) of the paranasal sinuses was performed without intravenous contra st. The dose-length product was 292.39 mGy-cm. Automated exposure control and iterative reconstructio n technique were employed. COMPARISON: CT dated 12/22/2022 FINDINGS: There is mild mucosal thickening of the frontal, ethmoid and maxillary sinuses. No signific ant nasal septal deviation. Mastoids are pneumatized. IMPRESSION: 1. Mild sinus disease. Reviewed, dictated and finalized at location B. IMPRESSION: 1. Mild sinus disease.
== END 2025-05-20 11:29 | disposition home or self-care (01) ==
LOC: MICIMG 11:29
PROVIDERS: PCP Internal Medicine
DX: J32.9 Chronic sinusitis, unspecified (principal)
CPT/HCPCS: 70486